=== PATIENT | female | born 1990 | race Caucasian/White ===

== ENCOUNTER → 2020-04-23 16:04 | Outpatient (CLI) | payer OTHER, SELFPAY ==
[2020-04-23 19:17] LABS: HCG,Quantitative 4864 mIU/ml (0-5.42)
== END ==
PROVIDERS: Visit Provider Obstetrics & Gynecology
DX: Z32.00 Encounter for pregnancy test, result unknown (principal)
CPT/HCPCS: 36415; 84702

== ENCOUNTER → 2020-05-10 12:34 | Outpatient (CLI) | payer OTHER, SELFPAY ==
--- NOTE | 2020-05-10 13:13 | US_ITS ---
PROCEDURE: US OB <= 14 WEEKS FETUS CLINICAL INDICATION: COMPARISON: No exams were available for comparison FINDINGS: An intrauterine gestational sac is present with a pole with a crown-rump length of 0.34cm correlating to gestational age of 6weeks 1day. heart tones are present with an FHR of . Yolk sac is noted. IMPRESSION: Estimated due date by Ultrasound is 01/02/2021 Dictated by: Octavio Frazier 05/10/2020 14:45 Electronically signed by Octavio Frazier in [facility] 05/10/2020 14:45
== END ==
PROVIDERS: PCP Nurse Practitioner Family; Visit Provider Obstetrics & Gynecology
DX: Z34.90 Encounter for supervision of normal pregnancy, unspecified, unspecified trimester (principal)
CPT/HCPCS: 76801

== ENCOUNTER → 2020-05-15 12:32 | Outpatient (CLI) | payer OTHER, SELFPAY ==
--- NOTE | 2020-05-15 12:40 | US_ITS ---
PROCEDURE: US OB TRANSVAGINAL CLINICAL INDICATION: repeat US for viability COMPARISON: US OB <= 14 WEEKS FETUS from 05/10/2020 FINDINGS: There is an intrauterine gestational sac with what is felt represent a pole measuring 3.3 mm correlating to gestational age of 6 weeks 0 days. No heart tones however are evident. A yolk sac is noted. There is an irregular area of decreased echogenicity along the inferior aspect of the yolk sac measuring 1 cm and could be due to small amount subchorionic bleeding. Unremarkable adnexa IMPRESSION: There is an intrauterine gestational sac with suspected pole but no heart tones evident. Cannot confirm viability. There is also questionable area of subchorionic bleeding Dictated by: Trent Short MD 05/15/2020 18:20 Electronically signed by Trent Short MD in [facility] 05/15/2020 18:20
[2020-05-15 14:57] LABS: HCG,Quantitative 38153 mIU/ml (0-5.42)
== END ==
PROVIDERS: PCP Obstetrics & Gynecology; Visit Provider Obstetrics & Gynecology
DX: Z34.90 Encounter for supervision of normal pregnancy, unspecified, unspecified trimester (principal)
CPT/HCPCS: 36415; 76817; 84702

== ENCOUNTER → 2020-05-15 13:43 | Outpatient (CLI) | payer OTHER, SELFPAY | PROVIDERS: Visit Provider Obstetrics & Gynecology | DX: Z34.90 Encounter for supervision of normal pregnancy, unspecified, unspecified trimester (principal) | CPT/HCPCS: 36415; 84702 ==

== ENCOUNTER 2020-05-17 09:01 | Day surgery (SDC) | payer OTHER, SELFPAY ==
[2020-05-16 09:36] VITALS: BMI 22.9
[2020-05-17] VITALS (11 sets, daily range): BP systolic 73–130; BP diastolic 48–60; PULSE 52–78; RESP 16–28; TEMP 36.5–36.9; O2SAT 99–100
[2020-05-17 10:46] LABS: Coronavirus 19 IgG Antibody Negative (Negative); Coronavirus 19 IgM Antibody Negative (Negative)
[2020-05-17 12:40] LABS: Basophils # 0.1 K/mm3 (0-0.2); Basophils % 0.6 % (0.1-2.0); Eosinophils # 0.1 K/mm3 (0.0-0.4); Eosinophils % 1.2 % (0.1-12.0); Hematocrit 33.8 % (37.0-47.0); Hemoglobin 11.4 g/dL (12.2-16.2); Lymphocytes # 2.5 K/mm3 (0.7-4.5); Lymphocytes % 31.2 % (10-50); Mean Corpuscular HGB Conc 33.8 g/dL (31.8-35.4); Mean Corpuscular Hemoglobin 30.1 pg (27.0-31.2); Mean Corpuscular Volume 89.1 fl (81-99); Mean Platelet Volume 9.1 fl (7.4-10.4); Monocytes # 0.5 K/mm3 (0.1-1.0); Monocytes % 6.4 % (1.7-9.3); Neutrophils # 4.8 K/mm3 (1.8-7.8); Neutrophils % 60.6 % (37.0-80.0); Platelet Count 195 K/mm3 (142-424); Red Blood Count 3.79 M/mm3 (4.20-5.40); Red Cell Distribution Width 14.5 % (11.5-17.5); White Blood Count 7.9 K/mm3 (4.8-10.8)
--- NOTE | 2020-05-17 12:55 | HMH.ANESI ---
[facility] Anesthesia Record Part I Intake, IV Amount: 1,200 Estimated blood loss (mL): 150 Urine output (mL): 1,200 Blood Pressure: 88/50 SaO2: 100 Pulse Rate: 78 Respiratory Rate: 16 Temperature: 97.8 F Patient is:: Drowsy, Stable Stable to PACU at:: 12:50
--- NOTE | 2020-05-17 13:22 | HMH.OPNOTE ---
Date of procedure: 05/17/20 Pre-op Diagnosis:: Missed , 6 /7 Post-op Diagnosis:: same Procedure performed:: Suction D&C Surgeon:: Chani Romero MD GLOBAL CREATIVE CHAIRMAN:: Quan Jarrett Anesthesia: GETA Estimated blood loss (mL): 150 Operative findings:: CRL measuring 6 1/7 with no change in measurement over 1 wk and no heart tones Operative note:: The patient was taken to the OR and general anesthesia administered without difficulty. She was prepped and draped in lithotomy position. Reis retractors were used to visualize the cervix and a single tooth tenaculum placed on the anterior lip of the cervix. The cervix was passively dilated until it could accomodate the suction curette. A size # 7 curved curette was used to evacuate the contents of the uterus. Once the products of conception had been evacuated, sharp curettage was used to ensure that no products remained within the uterine cavity. All instruments were then removed from the patients vagina, she was taken out of lithotomy position, awakened from anesthesia and taken to the PACU in stable condition. EBL: 150cc Condition: stable Disposition: PACU Specimens:: products of conception Complications:: none
--- NOTE | 2020-05-17 13:45 | HMH.ANESII ---
[facility] Anesthesia Record Part II Discharge Time: 13:16 Destination: Surgical Day Care (OP Surgery) PACU nurse assessment reviewed?: Yes Patient Condition:: Good Anesthesia Complications:: None Swallowing reflex intact?: Yes Cyanosis?: No Blood Pressure: 106/55 Pulse Rate: 60 Temperature: 98 F Mental Status: Alert & Oriented Pain level:: 0 Nausea and/or vomitting:: None Intake, IV Amount: 0
== END 2020-05-17 13:56 | disposition home or self-care (01) ==
PROVIDERS: PCP Obstetrics & Gynecology; Visit Provider Obstetrics & Gynecology
PROC: (CPT 59820; principal; 2020-05-17 12:00)
DX: O02.1 Missed abortion (principal); Z88.5 Allergy status to narcotic agent; Z88.8 Allergy status to other drugs, medicaments and biological substances; Z91.048 Other nonmedicinal substance allergy status; Z90.49 Acquired absence of other specified parts of digestive tract; Z82.49 Family history of ischemic heart disease and other diseases of the circulatory system; Z84.89 Family history of other specified conditions
CPT/HCPCS: 59820; 36415; 84702; 85025; 86328; 86900; 86901; J2405

== ENCOUNTER 2020-05-21 11:51 | Emergency (ER) | payer OTHER, SELFPAY ==
[2020-05-21 11:53] VITALS: BP 136/76; PULSE 100; RESP 18; TEMP 37.4; O2SAT 100; BMI 23.3
--- NOTE | 2020-05-21 12:14 | CT_ITS ---
PROCEDURE: CT ABDOMEN PELVIS W CON CLINICAL INDICATION: abd pain, post d/c Abdominal pain, recent D&C, recent surgery with lower pelvic pain COMPARISON: US OB TRANSVAGINAL from 05/15/2020 TECHNIQUE: IV Contrast: 75ML OPTIRAY 350 Oral Contrast None Axial images obtained with sagittal and coronal reformats. All CT scans at the facility use one or more dose reduction, viz: automated exposure control, ma/kV adjustment per patient size (including targeted exams where dose is matched to indication, i.e. head), or iterative reconstruction technique. FINDINGS: LOWER THORAX: There are bilateral breast implants. A noncalcified 9 mm nodule is present in the left lower lobe. ABDOMEN & PELVIS: Prior cholecystectomy. Mild biliary ectasia. The spleen, adrenal glands, pancreas, and kidneys show no acute finding. No renal or ureteral calculi. There is a 4 mm cortical cyst involving the medial aspect of the left kidney. No evidence of appendicitis. There is a mild amount of retained colonic feces. No intestinal obstruction or free air. Bowel gas pattern is nonspecific with nondistended fluid-filled loops of small bowel. Suture line is present in the sigmoid colon region. There is a small amount of fluid in the pelvis. No acute bony findings. Minimal lumbar curvature convex left. The uterus body and fundus shows decreased attenuation and mild enlargement. No endometrial gas or endometrial enhancement. IMPRESSION: 1. Mild prominence of the uterus with low-density changes of the body and fundus of the myometrium. This is nonspecific and could be related underlying edema/. This is not a typical appearance for endometritis. The ultrasound may provide further evaluation. 2. Small amount fluid in the pelvis. 3. Mild amount of retained colonic feces 4. 9 mm nodule in the left lower lobe. Recommend six-month follow-up Dictated by: Trent Short MD 05/21/2020 13:07 Electronically signed by Trent Short MD in [facility] 05/21/2020 13:07
--- NOTE | 2020-05-21 12:21 | PC.NURSE ---
Addendum entered by Alla Juan RN 05/21/20 12:21: wrong pt Original Note: Gave family an update
[2020-05-21 12:26] LABS: Basophils % 0.3 % (0.1-2.0); Eosinophils # 0.1 K/mm3 (0.0-0.4); Eosinophils % 0.7 % (0.1-12.0); Hematocrit 44.1 % (37.0-47.0); Hemoglobin 15.2 g/dL (12.2-16.2); Lymphocytes # 1.7 K/mm3 (0.7-4.5); Lymphocytes % 12.8 % (10-50); Mean Corpuscular HGB Conc 34.4 g/dL (31.8-35.4); Mean Corpuscular Hemoglobin 30.5 pg (27.0-31.2); Mean Corpuscular Volume 88.7 fl (81-99); Mean Platelet Volume 9.2 fl (7.4-10.4); Monocytes # 0.6 K/mm3 (0.1-1.0); Monocytes % 4.7 % (1.7-9.3); Neutrophils # 10.6 K/mm3 (1.8-7.8); Neutrophils % 81.5 % (37.0-80.0); Platelet Count 235 K/mm3 (142-424); Red Blood Count 4.98 M/mm3 (4.20-5.40); Red Cell Distribution Width 14.6 % (11.5-17.5)
[2020-05-21 12:28] LABS: Alanine Aminotransferase 221 U/L (12-78); Albumin Level 5.5 g/dl (3.5-5.0); Albumin/Globulin Ratio 1.3 (1.1-1.8); Alkaline Phosphatase 142 U/L (38-126); Amylase 104 U/L (30-110); Aspartate Amino Transferase 165 U/L (14-36); Bilirubin,Total 0.6 mg/dl (0.2-1.3); Blood Urea Nitrogen 5 mg/dl (7-17); Calcium 10.5 mg/dl (8.4-10.2); Carbon Dioxide 28 mmol/L (22.0-30.0); Chloride 96 mmol/L (98-107); Creatinine Clearance Estimated 118 mL/min (50-200); Estimated Glomerular Filt Rate 98 ml/min (>60); GFR (African American) 119 ML/MIN (>60); Globulin 4.1 g/dL (1.3-3.2); Glucose 92 mg/dl (74-100); Lipase 36 U/L (23-300); Sodium 136 mmol/L (136-145); Total Protein,Serum 9.6 g/dl (6.3-8.2)
[2020-05-21 12:28] LABS: Microscopic, Urine URINE MICROSCOPIC (MICROSCOPIC)
[2020-05-21 12:29] LABS: Appearance,Urine CLEAR (Clear); Bilirubin,Urine Negative (Negative); Blood, Urine 3+ (Negative); Color,Urine YELLOW (Yellow); Glucose,Urine (UA) Negative (Negative); Ketones,Urine 1+ (Negative); Leukocyte Esterase,Urine TRACE (Negative); Nitrate,Urine Negative (Negative); Protein,Urine Negative (Negative); Specific Gravity, Urine 1.015 (1.005-1.030); Urobilinogen,Urine 0.2 EU/dl (0.2)
[2020-05-21 12:31] VITALS: BP 117/54; PULSE 94; RESP 18; O2SAT 97
[2020-05-21 12:31] LABS: Urine Pregnancy, HCG Qual. Positive (Negative)
--- NOTE | 2020-05-21 12:32 | PC.NURSE ---
pt to CT
[2020-05-21 12:41] LABS: Amphetamine/Metha Screen,Urine Negative ng/ml (<1000)
[2020-05-21 12:42] LABS: Barbiturates Screen,Urine Negative ng/ml (<200)
[2020-05-21 12:43] LABS: Benzodiazepines Screen,Urine Negative ng/ml (<200); Cannabinoid Screen,Urine Negative ng/ml (<50)
[2020-05-21 12:44] LABS: Cocaine Screen,Urine Negative ng/ml (<300)
[2020-05-21 12:45] LABS: Methadone Screen,Urine Negative ng/ml (<300); Opiate Screen,Urine Negative ng/ml (<300)
[2020-05-21 12:46] LABS: Phencyclidine Screen,Urine Negative ng/ml (<25)
[2020-05-21 12:49] LABS: Bacteria,Urine Trace /lpf
[2020-05-21 13:35] VITALS: BP 101/68; PULSE 74; RESP 20; O2SAT 97
--- NOTE | 2020-05-21 13:58 | PC.NURSE ---
notified ER pt ct result is in the system
[2020-05-21 14:31] VITALS: BP 113/66; PULSE 78; RESP 18; O2SAT 98
--- NOTE | 2020-05-21 14:53 | HMH.EDABDPAI ---
ED Disposition Clinical Impression: Abdominal pain Disposition: Home, Self-Care Condition on Discharge: Good Instructions: DI for Acute Abdomen Prescriptions: Docusate Sodium 250 mg PO BID 30 Days #60 cap Prescription Printed Hydrocodone/Acetaminophen [[place] 10-325 Tablet] 1 tab PO Q4H PRN 3 Days #15 tab PRN Reason: Breakthru Moderate Pain Tizanidine HCl [Zanaflex 4mg tablet] 4 mg PO TID 10 Days #30 tablet Referrals: Johnie Romero [Primary Care Provider] - - Critical Care Critical Care Time: No Attestation: On 05/21/20, the high probability of a clinically significant, sudden or life threatening deterioration of the following system(s) required my full and direct attention, intervention and personal management. The time I documented below is in addition to time spent performing reported procedures but includes the following listed in this critical care notation. Medical Decision Making - Medical Records Medical records reviewed: Yes: I reviewed the patient's medical records. - Eitan Inquiry Pt receiving controlled substance: No Vital Signs: 05/21/20 11:53 05/21/20 12:31 05/21/20 13:35 Temperature 99.3 F Temperature Source Oral Pulse Rate [Right] 100 H 94 H 74 Respiratory Rate 18 18 20 Blood Pressure [Right Arm] 136/76 117/54 L 101/68 L Blood Pressure Mean [Right Arm] 96 75 79 Blood Pressure Source [Right Arm] Automatic Cuff Blood Pressure Position [Right Arm] Sitting Sitting 02 Sat by Pulse Oximetry 100 97 97 Oxygen Delivery Method 05/21/20 14:31 Temperature Temperature Source Pulse Rate [Right] 78 Respiratory Rate 18 Blood Pressure [Right Arm] 113/66 Blood Pressure Mean [Right Arm] 81 Blood Pressure Source [Right Arm] Automatic Cuff Blood Pressure Position [Right Arm] Sitting 02 Sat by Pulse Oximetry 98 Oxygen Delivery Method Room Air - Lab Data Lab results reviewed: Yes: I reviewed the patient's lab results. Lab Results 05/21/20 12:10: WBC 13.0 H, RBC 4.98, Hgb 15.2, Hct 44.1, MCV 88.7, MCH 30.5, MCHC 34.4, RDW 14.6, Plt Count 235, MPV 9.2, Neut % (Auto) 81.5 H, Lymph % (Auto) 12.8, [place] % (Auto) 4.7, Eos % (Auto) 0.7, Baso % (Auto) 0.3, Neut # (Auto) 10.6 H, Lymph # (Auto) 1.7, [place] # (Auto) 0.6, Eos # (Auto) 0.1, Baso # (Auto) 0.0 05/21/20 12:10: Sodium 136, Potassium 4.0, Chloride 96 L, Carbon Dioxide 28, Anion Gap 16.0 H, BUN 5 L, Creatinine 0.70, Estimated Creat Clear 118, Estimated GFR 98, Est GFR ( Amer) 119, Glucose 92, Calcium 10.5 H, Total Bilirubin 0.6, AST 165 H, ALT 221 H, Alkaline Phosphatase 142 H, Total Protein 9.6 H, Albumin 5.5 H, Globulin 4.1 H, Albumin/Globulin Ratio 1.3, Amylase 104, Lipase 36 05/21/20 12:10: Urine Opiates Screen Negative, Urine Methadone Screen Negative, Ur Barbituates Screen Negative, Ur Phencyclidine Scrn Negative, Ur Amphetamines Screen Negative, U Benzodiazepines Scrn Negative, Urine Cocaine Screen Negative, U Marijuana (THC) Screen Negative 05/21/20 12:10: Urine HCG, Qual Positive 05/21/20 12:10: Lactate 1.0 05/21/20 12:23: Urine Color Yellow, Urine Appearance Clear, Urine pH 7.0, Ur Specific [place] 1.015, Urine Protein Negative, Urine Glucose (UA) Negative, Urine Ketones 1+, Urine Blood 3+, Urine Nitrate Negative, Urine Bilirubin Negative, Urine Urobilinogen 0.2, Ur Leukocyte Esterase Trace, Urine RBC 10-20, Urine WBC 3-5, Ur Squamous Epith Cells 5-10, Urine Bacteria Trace Result diagrams: 05/21/20 12:10 05/21/20 12:10 Orders (Tests/Meds): ED MEDICATIONS Discontinued Medications Generic Name Dose Route Start Last Admin Trade Name Freq PRN Reason Stop Dose Admin Hydromorphone HCl 1 mg 05/21/20 12:25 05/21/20 12:27 Dilaudid 2mg/Ml Syringe IV 05/21/20 12:26 1 mg ONCE ONE Administration Hydromorphone HCl 1 mg 05/21/20 13:49 05/21/20 13:57 Dilaudid 2mg/Ml Syringe IV 05/21/20 13:50 1 mg ONCE ONE Administration Hydromorphone HCl 1 mg 05/21/20 14:53 05/21/20 14:56 Dilaudid 2mg/Ml Syringe IV
[2020-05-21 15:30] VITALS: BP 113/66; PULSE 78; RESP 18; TEMP 37.4; O2SAT 98
== END 2020-05-21 15:35 | disposition home or self-care (01) ==
PROVIDERS: Emergency Provider Family Medicine; PCP Ophthalmology
DX: R10.32 Left lower quadrant pain (principal); Z88.5 Allergy status to narcotic agent
CPT/HCPCS: 74177; 80053; 80305; 81001; 81025; 82150; 83605; 83690; 85025; 87040; 96365; 96375; 96376; 99284; Q9967

== ENCOUNTER → 2020-06-11 11:59 | Outpatient (CLI) | payer OTHER, SELFPAY ==
[2020-06-11 14:16] LABS: HCG,Quantitative 28 mIU/ml (0-5.42)
== END ==
PROVIDERS: Visit Provider Obstetrics & Gynecology
DX: O02.1 Missed abortion (principal)
CPT/HCPCS: 36415; 84702

== ENCOUNTER → 2020-06-16 10:35 | Outpatient (CLI) | payer OTHER, SELFPAY | PROVIDERS: Visit Provider Obstetrics & Gynecology | DX: Z01.818 Encounter for other preprocedural examination (principal) ==

== ENCOUNTER → 2020-06-18 10:47 | Outpatient (CLI) | payer OTHER, SELFPAY ==
[2020-06-18 11:04] LABS: Basophils # 0.1 K/mm3 (0-0.2); Basophils % 0.9 % (0.1-2.0); Eosinophils # 0.2 K/mm3 (0.0-0.4); Eosinophils % 3.9 % (0.1-12.0); Hematocrit 41.2 % (37.0-47.0); Hemoglobin 14.1 g/dL (12.2-16.2); Lymphocytes # 2.3 K/mm3 (0.7-4.5); Lymphocytes % 38.7 % (10-50); Mean Corpuscular HGB Conc 34.4 g/dL (31.8-35.4); Mean Corpuscular Hemoglobin 30.7 pg (27.0-31.2); Mean Corpuscular Volume 89.4 fl (81-99); Mean Platelet Volume 9.3 fl (7.4-10.4); Monocytes # 0.4 K/mm3 (0.1-1.0); Neutrophils % 50.5 % (37.0-80.0); Platelet Count 204 K/mm3 (142-424); Red Cell Distribution Width 14.8 % (11.5-17.5); White Blood Count 5.9 K/mm3 (4.8-10.8)
[2020-06-18 11:38] LABS: Chloride 103 mmol/L (98-107); Potassium 4.7 mmoL/L (3.5-5.1); Sodium 141 mmol/L (136-145)
[2020-06-18 11:40] LABS: Alanine Aminotransferase 21 U/L (12-78); Aspartate Amino Transferase 32 U/L (14-36); Blood Urea Nitrogen 7 mg/dl (7-17); Estimated Glomerular Filt Rate 98 ml/min (>60); GFR (African American) 119 ML/MIN (>60)
[2020-06-18 11:41] LABS: Albumin Level 4.4 g/dl (3.5-5.0); Albumin/Globulin Ratio 1.6 (1.1-1.8); Alkaline Phosphatase 59 U/L (38-126); Anion Gap 13.7 mEq/L (5-15); Bilirubin,Total 0.4 mg/dl (0.2-1.3); Calcium 9.9 mg/dl (8.4-10.2); Carbon Dioxide 29 mmol/L (22.0-30.0); Globulin 2.8 g/dL (1.3-3.2); Glucose 79 mg/dl (74-100); Total Protein,Serum 7.2 g/dl (6.3-8.2)
[2020-06-18 11:59] LABS: HCG,Quantitative 7 mIU/ml (0-5.42)
[2020-06-18 13:45] LABS: Coronavirus 19 IgG Antibody Negative (Negative); Coronavirus 19 IgM Antibody Negative (Negative)
== END ==
PROVIDERS: Visit Provider Obstetrics & Gynecology
DX: O02.1 Missed abortion (principal)
CPT/HCPCS: 36415; 80053; 84702; 85025; 86328

== ENCOUNTER 2020-06-19 07:04 | Day surgery (SDC) | payer OTHER, SELFPAY ==
[2020-06-19] VITALS (11 sets, daily range): BP systolic 99–137; BP diastolic 60–86; PULSE 67–94; RESP 12–18; TEMP 36.1–43; O2SAT 98–100; BMI 22.2
--- NOTE | 2020-06-19 08:45 | P.PN_ITS ---
[facility] Anesthesia Checklist - Patient Identification Patient Identification: Arm Band - Structural Data Admitted From: Home Planned Operative Procedure/s: hysteroscopy, d&c, diagnostic laparoscopy Consent for Planned Operative Procedure(s) Verified: Yes Verified Documents: Surgical Consent, History and Physical - NPO Status Verified Time NPO: 00:00 - Additional verifications Anesthesia Reactions: No Hx Blood Transfusions: No Blood Transfusion Reaction: No - Airway Assessment C-Spine Mobility Assessed: Yes (mp2) TMJ Mobility Assessed: Yes Dentition: Good Dentition - Neurological Assessment Level of Consciousness: Awake, Alert - Anesthesia Plan Anesthesia Risk discussed: Yes Anesthesia Plan: Verified ASA Class: I Anesthesia Type: General [facility] History I have reviewed the patient's past medical history: Yes Medical History: Reports:: MRSA (spine) Denies:: Cancer, Diabetes Mellitus Type 1, Diabetes Mellitus Type 2, Internal Pacemaker, Seizures *Have you ever received a pneumonia vaccine?: No *Have you received a flu vaccine this season?: No Other Medical History: Reports: Other. Denies: Blood Transfusion Reaction Anesthesia experience/problems:: nac Other Surgeries: Yes: Cholecystectomy, Dilation and Curettage, Diagnostic Lap, EGD, Other. 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
--- NOTE | 2020-06-19 11:43 | HMH.ANESI ---
[facility] Anesthesia Record Part I Intake, IV Amount: 1,400 Estimated blood loss (mL): 25 Urine output (mL): 300 Blood Pressure: 137/86 SaO2: 100 Pulse Rate: 94 Respiratory Rate: 12 Temperature: 97.2 F Patient is:: Awake, Stable Stable to PACU at:: 11:40
--- NOTE | 2020-06-19 12:10 | PC.NURSE ---
1207-detailed report called to Celeste,RN, pt eating ice chips w/out difficulty,vss 1210-pt transported to post op via stretcher w/khanh rails up, vss, pt stable
--- NOTE | 2020-06-19 13:12 | HMH.OPNOTE ---
Date of procedure: 06/19/20 Pre-op Diagnosis:: 1. Pelvic pain 2. Dyspareunia 3. Infertility 4. Dysfunctional uterine bleeding Post-op Diagnosis:: 1. Pelvic pain 2. Dyspareunia 3. Infertility 4. Dysfunctional uterine bleeding 5. Occluded left fallopian tube Procedure performed:: 1. Diagnostic Hysteroscopy 2. Diagnostic laparoscopy with chromotubation 3. Left salpingectomy Surgeon:: Chani Romero MD PHYSICIAN GYNECOLOGIST:: Garth Sánchez Anesthesia: GETA Estimated blood loss (mL): 25 Operative findings:: normal uterine cavity normal ovaries bilaterally normal appearing and patent right fallopian tube dilated, tortuous and adhesed left fallopian tube, completely occuded Operative note:: HYSTEROSCOPY: The patient was taken to the operating room and general anesthesia was administered. She was prepped/draped in lithotomy position. The anterior lip of the cervix was grasped with a single tooth tenaculum and the cervix was dilated with Brizuela dilators of serially increasing size until the external os was able to accomodate the Myosure hysteroscope. The hysteroscope was advanced through the cervix and into the uterine cavity, which was distended with LR. Once the uterus was sufficiently distended, the cavity was evaluated. Both tubal ostia were visualized and no deptum, fibroids or polyps were observed. The hysteroscope was removed and a uterine manipulator placed without difficulty. LAPAROSCOPY: Gloves were changed and attention was turned to the abdomen. A 5mm skin incision was made in the umbilical fold and the verees needle was inserted through the peritoneum and into the abdominal cavity in standard fashion. The abdomen was insufflated with CO2 gas. A 5mm non-bladed trocar was inserted directly into the abdominal cavity and appropriate placement was confirmed with the laparoscope. No intra-abdominal injuries occurred during entry into the abdominal cavity, as confirmed visually with the laparoscope. The patient was placed in trendelenburg and a 5mm skin incision was made 2cm above the pubic symphysis. A 5mm non-bladed trocar was inserted under direct visualization, without complication. The uterus was elevated out of the pelvis in order to better visualize the anatomy. A survey of the pelvis and abdomen revealed the findings noted above. A 11mm skin incision was made in the left lower quadrant and a non-bladed trocar was inserted under direct visualization, without complication. The fimbriated end of the left fallopian tube could not be identified because the tube was twisted on itself and adhesed in so many places. A dilute solution of indigo carmine was injected into the uterus through the Humi. The dye flowed freely through the right fallopian tube and was expelled through the fimbriated end, but no dye was ejected through the left fallopian tube. The extent of the left fallopian tube's hydrosalpinx and adhesions was even more apparent after the tube had been filled with the dye solution. The decision was made to proceed with removal of the fallopian tube because of the implicit risk of future ectopic and the case was paused so that the surgeon could obtain consent from the patient's for the salpingectomy. Once the case had resumed, the left fallopian tube was dissected off the left pelvic sidewall and bowel using both sharp and blunt dissection. The tube was excised using the harmonic scalpel, and was removed through the LLQ port. Hemostasis was assurred and all instruments removed. The abdomen was then evacuated of gas and all trocars removed. The fascia of the LLQ incision was closed with 0-vicryl. All skin incisions were closed with dermabond. All sponge/lap/needle/instrument counts correct for both abdominal and vaginal procedures. Total EBL: 25 cc. The patient was taken out of lithotomy position, extubated and taken to the PACU in stable condition. Condition: stable Disposition: PACU Specimens::
--- NOTE | 2020-06-19 14:06 | HMH.ANESII ---
[facility] Anesthesia Record Part II Discharge Time: 12:10 Destination: Surgical Day Care (OP Surgery) PACU nurse assessment reviewed?: Yes Patient Condition:: Good Anesthesia Complications:: None Swallowing reflex intact?: Yes Cyanosis?: No Blood Pressure: 116/67 Pulse Rate: 73 Temperature: 97.0 F Mental Status: Alert & Oriented Pain level:: 0 Nausea and/or vomitting:: None Intake, IV Amount: 0
== END 2020-06-19 12:45 | disposition home or self-care (01) ==
LOC: OR 07:06
PROVIDERS: Visit Provider Obstetrics & Gynecology
PROC: 0UDB8ZZ Extraction of Endometrium, Via Natural or Artificial Opening Endoscopic (ICD-10-PCS; CPT 58558; principal; 2020-06-19 09:15)
DX: N97.1 Female infertility of tubal origin (principal); K66.0 Peritoneal adhesions (postprocedural) (postinfection); Z86.14 Personal history of Methicillin resistant Staphylococcus aureus infection; Z90.49 Acquired absence of other specified parts of digestive tract; Z87.891 Personal history of nicotine dependence; Z87.19 Personal history of other diseases of the digestive system; Z98.82 Breast implant status; Z82.49 Family history of ischemic heart disease and other diseases of the circulatory system; Z88.6 Allergy status to analgesic agent; Z88.8 Allergy status to other drugs, medicaments and biological substances; Z91.048 Other nonmedicinal substance allergy status; Z79.899 Other long term (current) drug therapy; N93.8 Other specified abnormal uterine and vaginal bleeding; N80.9 Endometriosis, unspecified
CPT/HCPCS: 58350; 58661; 96374; J2405

== ENCOUNTER → 2020-08-06 13:17 | Outpatient (CLI) | payer OTHER, SELFPAY ==
[2020-08-07 10:02] LABS: Progesterone 10.4 ng/mL (.)
== END ==
PROVIDERS: Visit Provider Obstetrics & Gynecology
DX: N70.11 Chronic salpingitis (principal); N93.8 Other specified abnormal uterine and vaginal bleeding
CPT/HCPCS: 36415; 84144

== ENCOUNTER → 2020-09-10 11:01 | Outpatient (CLI) | payer OTHER, SELFPAY ==
[2020-09-10 13:14] LABS: HCG,Quantitative 786 mIU/ml (0-5.42)
== END ==
PROVIDERS: Visit Provider Obstetrics & Gynecology
DX: Z32.00 Encounter for pregnancy test, result unknown (principal)
CPT/HCPCS: 36415; 84702

== ENCOUNTER → 2020-09-12 10:46 | Outpatient (CLI) | payer OTHER, SELFPAY ==
[2020-09-12 12:30] LABS: HCG,Quantitative 1889 mIU/ml (0-5.42)
== END ==
PROVIDERS: Visit Provider Obstetrics & Gynecology
DX: Z34.90 Encounter for supervision of normal pregnancy, unspecified, unspecified trimester (principal)
CPT/HCPCS: 36415; 84702

== ENCOUNTER → 2020-09-25 11:50 | Outpatient (CLI) | payer OTHER, SELFPAY | PROVIDERS: Visit Provider Obstetrics & Gynecology | DX: Z32.00 Encounter for pregnancy test, result unknown (principal) | CPT/HCPCS: 36415; 84702 ==

== ENCOUNTER → 2020-10-01 07:42 | Outpatient (CLI) | payer OTHER, SELFPAY ==
--- NOTE | 2020-10-01 08:18 | US_ITS ---
PROCEDURE: US OB <= 14 WEEKS FETUS CLINICAL INDICATION: Dates The COMPARISON: US US OB TRANSVAGINAL from 05/15/2020 FINDINGS: An intrauterine gestational sac is present with a pole with a crown-rump length of 1cm correlating to gestational age of 7weeks 1day. heart tones are present with an FHR of 154bpm. Yolk sac is noted. Unremarkable adnexa IMPRESSION: Live IUP at 7 weeks 1 day Estimated due date by Ultrasound is 05/19/2021 Dictated by: Trent Short MD 10/01/2020 17:39 Trent Short MD in [facility] 10/01/2020 17:39
[2020-10-01 10:24] LABS: Basophils % 0.4 % (0.1-2.0); Eosinophils # 0.1 K/mm3 (0.0-0.4); Eosinophils % 0.7 % (0.1-12.0); Hematocrit 40.8 % (37.0-47.0); Hemoglobin 14.2 g/dL (12.2-16.2); Lymphocytes # 2.3 K/mm3 (0.7-4.5); Lymphocytes % 22.9 % (10-50); Mean Corpuscular HGB Conc 34.7 g/dL (31.8-35.4); Mean Corpuscular Hemoglobin 31.6 pg (27.0-31.2); Mean Corpuscular Volume 91.2 fl (81-99); Monocytes # 0.6 K/mm3 (0.1-1.0); Monocytes % 5.8 % (1.7-9.3); Neutrophils # 7.1 K/mm3 (1.8-7.8); Neutrophils % 70.3 % (37.0-80.0); Platelet Count 215 K/mm3 (142-424); Red Blood Count 4.47 M/mm3 (4.20-5.40); Red Cell Distribution Width 13.6 % (11.5-17.5)
[2020-10-02 15:20] LABS: HIV Screen 4th Generation wRfx Non Reactive (Non Reactive); Hepatitis B Surface Antigen Negative (Negative); Hepatitis C Antibody <0.1 s/co ratio (0.0-0.9); Rapid Plasma Reagin Ab Titer Non Reactive (NonRea<1:1); Rubella Antibodies, IgG 1.89 index (Immune >0.99)
== END ==
PROVIDERS: PCP Obstetrics & Gynecology; Visit Provider Obstetrics & Gynecology
DX: Z34.90 Encounter for supervision of normal pregnancy, unspecified, unspecified trimester (principal)
CPT/HCPCS: 36415; 76801; 85025; 86592; 86703; 86762; 86850; 87340; 87380; G0432

== ENCOUNTER → 2020-10-01 09:44 | Outpatient (CLI) | payer OTHER, SELFPAY | PROVIDERS: Visit Provider Obstetrics & Gynecology | DX: Z34.90 Encounter for supervision of normal pregnancy, unspecified, unspecified trimester (principal) | CPT/HCPCS: 36415; 85025; 86592; 86703; 86762; 86850; 87340; 87380; G0432 ==

== ENCOUNTER → 2020-10-29 10:54 | Outpatient (CLI) | payer OTHER, SELFPAY ==
[2020-10-29 11:18] LABS: Basophils # 0.1 K/mm3 (0-0.2); Basophils % 0.7 % (0.1-2.0); Eosinophils # 0.2 K/mm3 (0.0-0.4); Eosinophils % 1.7 % (0.1-12.0); Hematocrit 42.5 % (37.0-47.0); Hemoglobin 14.8 g/dL (12.2-16.2); Lymphocytes # 2.5 K/mm3 (0.7-4.5); Lymphocytes % 27.5 % (10-50); Mean Corpuscular HGB Conc 34.9 g/dL (31.8-35.4); Mean Corpuscular Hemoglobin 32.5 pg (27.0-31.2); Mean Platelet Volume 8.7 fl (7.4-10.4); Monocytes # 0.5 K/mm3 (0.1-1.0); Monocytes % 5.1 % (1.7-9.3); Neutrophils # 5.9 K/mm3 (1.8-7.8); Platelet Count 216 K/mm3 (142-424); Red Blood Count 4.57 M/mm3 (4.20-5.40); Red Cell Distribution Width 13.3 % (11.5-17.5); White Blood Count 9.1 K/mm3 (4.8-10.8)
[2020-10-29 12:09] LABS: Chloride 101 mmol/L (98-107); Potassium 4.1 mmoL/L (3.5-5.1); Sodium 136 mmol/L (136-145)
[2020-10-29 12:12] LABS: Alanine Aminotransferase 42 U/L (12-78); Albumin Level 4.8 g/dl (3.5-5.0); Albumin/Globulin Ratio 1.4 (1.1-1.8); Alkaline Phosphatase 67 U/L (38-126); Anion Gap 15.1 mEq/L (5-15); Aspartate Amino Transferase 74 U/L (14-36); Bilirubin,Total 0.6 mg/dl (0.2-1.3); Blood Urea Nitrogen 4 mg/dl (7-17); Carbon Dioxide 24 mmol/L (22.0-30.0); Estimated Glomerular Filt Rate 117 ml/min (>60); GFR (African American) 142 ML/MIN (>60); Globulin 3.5 g/dL (1.3-3.2); Total Protein,Serum 8.3 g/dl (6.3-8.2)
[2020-10-29 12:13] LABS: Calcium 10.2 mg/dl (8.4-10.2); Glucose 74 mg/dl (74-100)
[2020-10-29 12:41] LABS: Coronavirus 19 IgG Antibody Negative (Negative); Coronavirus 19 IgM Antibody Negative (Negative)
[2020-11-07 19:32] LABS: APTT 27.2 sec (.); Anti-Cardiolipin Antibody IgG <10 GPL (.); Anti-Cardiolipin Antibody IgM 14 MPL (.); Beta-2 Glycoprotein I Ab, IgA <10 SAU (.); Beta-2 Glycoprotein I Ab, IgG <10 SGU (.); Beta-2 Glycoprotein I Ab, IgM <10 SMU (.); Hexagonal Phase Phospholipid 3 sec (.); Prothrombin Time 10.4 sec (.); Thrombin Time 17.4 sec (.)
== END ==
PROVIDERS: Visit Provider Obstetrics & Gynecology
DX: Z34.90 Encounter for supervision of normal pregnancy, unspecified, unspecified trimester (principal); Z3A.11 11 weeks gestation of pregnancy
CPT/HCPCS: 36415; 80053; 81241; 85025; 85597; 85598; 85610; 85613; 85670; 85730; 86146; 86147; 86328

== ENCOUNTER 2020-10-31 10:50 | Day surgery (SDC) | payer OTHER, SELFPAY ==
[2020-10-29 15:10] VITALS: BMI 23.2
[2020-10-31] VITALS (10 sets, daily range): BP systolic 96–120; BP diastolic 53–71; PULSE 64–88; RESP 14–20; TEMP 36.4–36.9; O2SAT 98–100
--- NOTE | 2020-10-31 12:16 | P.PN_ITS ---
[facility] Anesthesia Checklist - Patient Identification Patient Identification: Arm Band, Verbal (Name & ) - Structural Data Admitted From: Home Planned Operative Procedure/s: D&C, [place] suction Consent for Planned Operative Procedure(s) Verified: Yes Verified Documents: Surgical Consent, History and Physical - NPO Status Verified Time NPO: 20:00 - Chart Verification Results Verified: CBC, BMP - Additional verifications Patient : Yes (missed ) Anesthesia Reactions: No Hx Blood Transfusions: No Blood Transfusion Reaction: No - Airway Assessment C-Spine Mobility Assessed: Yes TMJ Mobility Assessed: Yes Dentition: Good Dentition - Neurological Assessment Level of Consciousness: Awake, Alert, Appropriate, Follows Commands Hx Seizures: No Numbness or tingling in extremities: No - Anesthesia Plan Anesthesia Risk discussed: Yes Anesthesia Plan: Verified ASA Class: II Anesthesia Type: General [facility] History I have reviewed the patient's past medical history: Yes Medical History: Reports:: MRSA Denies:: Cancer, Diabetes Mellitus Type 1, Diabetes Mellitus Type 2, Internal Pacemaker, Seizures *Have you ever received a pneumonia vaccine?: No *Have you received a flu vaccine this season?: No Other Medical History: Reports: Other. Denies: Blood Transfusion Reaction Comment:: endometriois Anesthesia experience/problems:: PONV Other Surgeries: Yes: Cholecystectomy, Dilation and Curettage, Diagnostic Lap, EGD, Other. 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
--- NOTE | 2020-10-31 15:08 | HMH.ANESI ---
[facility] Anesthesia Record Part I Intake, IV Amount: 350 Estimated blood loss (mL): 600 Urine output (mL): 300 Blood Products used (#): none Blood Pressure: 105/68 SaO2: 100 Pulse Rate: 88 Respiratory Rate: 20 Temperature: 97.6 F Patient is:: Drowsy, Stable Stable to PACU at:: 15:08
--- NOTE | 2020-10-31 15:21 | PC.NURSE ---
1514-pt drinking water at this time w/out difficulty, denies nausea
--- NOTE | 2020-10-31 15:24 | P.OP_ITS ---
Date of procedure: 10/31/20 Pre-op Diagnosis:: missed , 9 2/7 weeks Post-op Diagnosis:: same Procedure performed:: Suction Dilation and Curettage Surgeon:: Chani Romero MD SENIOR TECHNICAL TRAINER:: Maximus Paez Anesthesia: GETA Estimated blood loss (mL): 600 Operative findings:: 9 week sized uterus Operative note:: The patient was taken to the OR and general anesthesia administered without difficulty. She was prepped and draped in lithotomy position. Reis retractors were used to visualize the cervix and a single tooth tenaculum placed on the anterior lip of the cervix. The cervix was passively dilated until it could accomodate the suction curette. A size # 9 curved curette was used to evacuate the contents of the uterus. Once the products of conception had been evacuated, sharp curettage was used to ensure that no products remained within the uterine cavity. All instruments were then removed from the patients vagina, she was taken out of lithotomy position, awakened from anesthesia and taken to the PACU in stable condition. EBL: 600 Condition: stable Disposition: PACU Specimens:: Products of conception Complications:: None
--- NOTE | 2020-10-31 15:40 | PC.NURSE ---
1537-detailed report called to TOÑO Arshad 1539-pt transported to post op via stretcher w/khanh rails up and left in care of TOÑO Arshad with bed locked in lowest position, vss, pt stable
[2020-11-01 09:02] VITALS: BP 104/67; PULSE 70; TEMP 36.4
--- NOTE | 2020-11-01 09:02 | P.PN_ITS ---
[facility] Anesthesia Record Part II Discharge Time: 15:38 Destination: Surgical Day Care (OP Surgery) PACU nurse assessment reviewed?: Yes Patient Condition:: Good Anesthesia Complications:: None Swallowing reflex intact?: Yes Cyanosis?: No Blood Pressure: 104/67 Pulse Rate: 70 Temperature: 97.6 F Mental Status: Alert & Oriented Pain level:: 2 Nausea and/or vomitting:: None Intake, IV Amount: 35
== END 2020-10-31 16:14 | disposition home or self-care (01) ==
LOC: OR 10:50
PROVIDERS: Visit Provider Obstetrics & Gynecology
PROC: (CPT 59812; principal; 2020-10-31 12:30)
DX: O02.1 Missed abortion (principal); Z86.14 Personal history of Methicillin resistant Staphylococcus aureus infection
CPT/HCPCS: 59812; 96374; J2405

== ENCOUNTER → 2020-12-17 14:31 | Outpatient (CLI) | payer OTHER, SELFPAY ==
[2020-12-17 14:38] LABS: Adenovirus F 40/41, stool Not Detected (NotDetected); Astrovirus Not Detected (NotDetected); Campylobacter Not Detected (NotDetected); Cryptosporidium Not Detected (NotDetected); Cyclospora Cayetanesis Not Detected (NotDetected); Entamoeba histolytica Not Detected (NotDetected); Enteroaggregative E coli Not Detected (NotDetected); Enteropathogenic E coli Not Detected (NotDetected); Enterotoxigenic E coli Not Detected (NotDetected); Giardia lamblia Not Detected (NotDetected); Norovirus Not Detected (NotDetected); Plesimonas Shigalloides, PCR Not Detected (NotDetected); Rotavirus A Not Detected (NotDetected); Salmonella, PCR Not Detected (NotDetected); Sapovirus Not Detected (NotDetected); Shiga-like toxin E coli Not Detected (NotDetected); Shigella Enterovasive E coli Not Detected (NotDetected); Vibrio Cholerae Not Detected (NotDetected); Vibrio, PCR Not Detected (NotDetected); Yersinia Entercolitica, PCR Not Detected (NotDetected)
[2020-12-25 08:43] LABS: Clostridium Difficile A/B, PCR Detected (NotDetected)
== END ==
PROVIDERS: Visit Provider Internal Medicine
DX: A04.72 Enterocolitis due to Clostridium difficile, not specified as recurrent (principal)
CPT/HCPCS: 87507

== ENCOUNTER → 2021-04-18 12:42 | Outpatient (CLI) | payer MEDICAID, SELFPAY | PROVIDERS: Visit Provider Obstetrics & Gynecology | DX: Z34.90 Encounter for supervision of normal pregnancy, unspecified, unspecified trimester (principal) | CPT/HCPCS: 84702 ==

== ENCOUNTER → 2021-04-20 10:53 | Outpatient (CLI) | payer MEDICAID, SELFPAY | PROVIDERS: Visit Provider Obstetrics & Gynecology | DX: Z34.90 Encounter for supervision of normal pregnancy, unspecified, unspecified trimester (principal) | CPT/HCPCS: 36415; 84702 ==

== ENCOUNTER → 2021-04-25 10:52 | Outpatient (CLI) | payer OTHER, SELFPAY ==
[2021-04-25 12:33] LABS: Basophils # 0.1 K/mm3 (0-0.2); Basophils % 0.5 % (0.1-2.0); Eosinophils # 0.2 K/mm3 (0.0-0.4); Eosinophils % 1.6 % (0.1-12.0); Hematocrit 38.6 % (37.0-47.0); Hemoglobin 13.6 g/dL (12.2-16.2); Lymphocytes # 2.2 K/mm3 (0.7-4.5); Lymphocytes % 23.9 % (10-50); Mean Corpuscular HGB Conc 35.2 g/dL (31.8-35.4); Mean Corpuscular Hemoglobin 31.7 pg (27.0-31.2); Mean Platelet Volume 9.9 fl (7.4-10.4); Monocytes # 0.6 K/mm3 (0.1-1.0); Monocytes % 7.1 % (1.7-9.3); Neutrophils % 66.8 % (37.0-80.0); Platelet Count 186 K/mm3 (142-424); Red Blood Count 4.29 M/mm3 (4.20-5.40); Red Cell Distribution Width 13.1 % (11.5-17.5)
[2021-04-26 05:12] LABS: Hepatitis B Surface Antigen Negative (Negative); Hepatitis C Antibody <0.1 s/co ratio (0.0-0.9)
[2021-04-26 09:18] LABS: HIV Screen 4th Generation wRfx Non Reactive (Non Reactive); Rubella Antibodies, IgG 2.14 index (Immune >0.99)
[2021-04-26 11:33] LABS: Rapid Plasma Reagin Ab Titer Non Reactive (NonRea<1:1)
== END ==
PROVIDERS: Visit Provider Obstetrics & Gynecology
DX: Z34.90 Encounter for supervision of normal pregnancy, unspecified, unspecified trimester (principal)
CPT/HCPCS: 84439; 84443; 85025; 86592; 86703; 86762; 86850; 87340; 87380; G0432

== ENCOUNTER → 2021-07-24 12:41 | Outpatient (CLI) | payer OTHER, SELFPAY ==
--- NOTE | 2021-07-24 12:42 | US_ITS ---
PROCEDURE: US OB >= 14 WEEKS FETUS CLINICAL INDICATION: OB complete COMPARISON: US US OB <= 14 WEEKS FETUS from 10/01/2020 FINDINGS: There is a single live fetus which is in breech presentation. The cervix is closed and measures 3 cm. The placenta is anterior with a wrap-around component posteriorly near the fundus. Placenta is grade 1. Complete survey performed and was unremarkable on the submitted images as in PACS. No discrete anomalies identified on survey imaging by technologist. Active fetus. Three-vessel cord with satisfactory umbilical cord insertion. 4- chamber heart noted. Survey of brain & ventricles Unremarkable. Face and neck survey unremarkable. Diaphragm and chest views unremarkable. Abdomen: Both kidneys noted and unremarkable. Stomach noted and satisfactory. Spine: Survey of the spine satisfactory with no anomalies identified nor imaged. Both arms and legs noted. Amniotic Fluid: Adequate. Maternal adnexa: No significant findings. Measurements: Average ultrasound age 20weeks 1day. Gestational Age 20weeks 1day Estimated due date by ultrasound age 0112/10/2021. Estimated weight 345g BPD = 20weeks OFD = 20weeks 3days HC = 19weeks 4days AC = 20weeks 2days FL = 20weeks 5days Growth Percentile= 55% Heart Rate = 150bpm Cerebellum = 20weeks Humerus = HC/AC is 1.13 CI is 0.76 FL/BPD is 0.74 FL/AC is 0.23 IMPRESSION: Live IUP in breech presentation. Average ultrasound age is 20 weeks 1 day. No obvious anomalies with all parameters correlating. Please see above for detail. Dictated by: Trent Short MD 07/24/2021 13:43 Trent Short MD in [facility] 07/24/2021 13:43
== END ==
PROVIDERS: PCP Obstetrics & Gynecology; Visit Provider Obstetrics & Gynecology
DX: Z34.90 Encounter for supervision of normal pregnancy, unspecified, unspecified trimester (principal)
CPT/HCPCS: 76805

== ENCOUNTER → 2021-08-30 07:07 | Outpatient (CLI) | payer OTHER, SELFPAY ==
[2021-08-30 07:21] LABS: Basophils # 0.1 K/mm3 (0-0.2); Basophils % 0.8 % (0.1-2.0); Eosinophils # 0.2 K/mm3 (0.0-0.4); Eosinophils % 1.8 % (0.1-12.0); Hematocrit 40.3 % (37.0-47.0); Hemoglobin 13.5 g/dL (12.2-16.2); Lymphocytes # 1.9 K/mm3 (0.7-4.5); Lymphocytes % 20.5 % (10-50); Mean Corpuscular HGB Conc 33.6 g/dL (31.8-35.4); Mean Corpuscular Hemoglobin 32.4 pg (27.0-31.2); Mean Corpuscular Volume 96.2 fl (81-99); Mean Platelet Volume 9.1 fl (7.4-10.4); Monocytes # 0.4 K/mm3 (0.1-1.0); Monocytes % 4.7 % (1.7-9.3); Neutrophils # 6.6 K/mm3 (1.8-7.8); Neutrophils % 72.1 % (37.0-80.0); Platelet Count 226 K/mm3 (142-424); Red Blood Count 4.19 M/mm3 (4.20-5.40); Red Cell Distribution Width 13.8 % (11.5-17.5); White Blood Count 9.1 K/mm3 (4.8-10.8)
[2021-08-30 07:30] LABS: Glucose,Fasting 75 mg/dl (74-100)
[2021-08-30 08:33] LABS: Coronavirus 19 IgG Antibody Positive (Negative); Coronavirus 19 IgM Antibody Negative (Negative)
[2021-08-30 09:11] LABS: Glucose 1 Hour 151 mg/dL (74-100)
== END ==
PROVIDERS: Visit Provider Obstetrics & Gynecology
DX: Z34.90 Encounter for supervision of normal pregnancy, unspecified, unspecified trimester (principal)
CPT/HCPCS: 36415; 82951; 85025; 86328

== ENCOUNTER → 2021-09-03 07:00 | Outpatient (CLI) | payer OTHER, SELFPAY ==
[2021-09-03 07:33] LABS: Glucose,Fasting 79 mg/dl (74-100)
[2021-09-03 09:14] LABS: Glucose 1 Hour 140 mg/dL (74-100)
[2021-09-03 10:13] LABS: Glucose 2 Hour 117 mg/dL (74-100)
[2021-09-03 11:06] LABS: Glucose 3 Hour 123 mg/dL (74-100)
== END ==
PROVIDERS: Visit Provider Obstetrics & Gynecology
DX: Z34.90 Encounter for supervision of normal pregnancy, unspecified, unspecified trimester (principal)
CPT/HCPCS: 36415; 82951

== ENCOUNTER → 2021-10-24 07:46 | Outpatient (CLI) | payer OTHER, SELFPAY ==
--- NOTE | 2021-10-24 07:46 | US_ITS ---
PROCEDURE: US OB FOLLOW UP CLINICAL INDICATION: Growth and ERICA FINDINGS: There is a single live fetus present in cephalic presentation. heart body motion noted. The cervix is closed and measures 3 cm. The placenta is anterior and grade 1-2. No previa or abruption demonstrated. The following parameters are obtained: Average ultrasound age is Average 33weeks 1day Estimated due date by ultrasound is 12/11/2021. Estimated weight is 2,090g. This is 32 percentile. BPD: 33weeks 3days OFD: 32 weeks 0 days HC: 32weeks 3days AC: 32weeks 6days FL: 33weeks 4days heart rate: 146bpm bpm. HC/AC: 1.02 Cephalic index: 0.8 FL/BPD: 0.78 FL/AC: 0.23 Amniotic fluid index: 11.4cm The femur length is 33weeks 4days IMPRESSION: Live IUP in cephalic presentation with an average ultrasound age of 33 weeks 1 day. Estimated weight is 2090 g which is 32 percentile. All parameters correlate. Normal amniotic fluid index. Dictated by: Trent Short MD 10/25/2021 08:47 Trent Short MD in [facility] 10/25/2021 08:47
== END ==
PROVIDERS: PCP Obstetrics & Gynecology; Visit Provider Obstetrics & Gynecology
DX: O36.5990 Maternal care for other known or suspected poor fetal growth, unspecified trimester, not applicable or unspecified (principal)
CPT/HCPCS: 76816

== ENCOUNTER → 2021-11-07 11:18 | Outpatient (CLI) | payer OTHER, SELFPAY | PROVIDERS: Visit Provider Nurse Practitioner | DX: U07.1 COVID-19 (principal) | CPT/HCPCS: C9803; U0003; U0005 ==

== ENCOUNTER → 2021-12-01 10:16 | Outpatient (CLI) | payer OTHER, SELFPAY ==
[2021-12-01 11:08] LABS: Basophils # 0.1 K/mm3 (0-0.2); Basophils % 0.9 % (0.1-2.0); Eosinophils % 0.5 % (0.1-12.0); Hematocrit 42.6 % (37.0-47.0); Hemoglobin 13.7 g/dL (12.2-16.2); Lymphocytes # 1.8 K/mm3 (0.7-4.5); Lymphocytes % 21.5 % (10-50); Mean Corpuscular HGB Conc 32.1 g/dL (31.8-35.4); Mean Corpuscular Hemoglobin 31.4 pg (27.0-31.2); Mean Corpuscular Volume 97.9 fl (81-99); Mean Platelet Volume 10.6 fl (7.4-10.4); Monocytes # 0.7 K/mm3 (0.1-1.0); Monocytes % 8.1 % (1.7-9.3); Neutrophils # 5.8 K/mm3 (1.8-7.8); Platelet Count 233 K/mm3 (142-424); Red Blood Count 4.35 M/mm3 (4.20-5.40); Red Cell Distribution Width 14.3 % (11.5-17.5); White Blood Count 8.4 K/mm3 (4.8-10.8)
[2021-12-01 11:56] LABS: Chloride 105 mmol/L (98-107); Potassium 4.2 mmoL/L (3.5-5.1); Sodium 136 mmol/L (136-145)
[2021-12-01 11:59] LABS: Alanine Aminotransferase 11 U/L (12-78); Albumin Level 3.9 g/dl (3.5-5.0); Albumin/Globulin Ratio 1.3 (1.1-1.8); Alkaline Phosphatase 161 U/L (38-126); Anion Gap 11.2 mEq/L (5-15); Aspartate Amino Transferase 26 U/L (14-36); Bilirubin,Total 0.4 mg/dl (0.2-1.3); Blood Urea Nitrogen 9 mg/dl (7-17); Calcium 9.4 mg/dl (8.4-10.2); Carbon Dioxide 24 mmol/L (22.0-30.0); Estimated Glomerular Filt Rate 98 ml/min (>60); GFR (African American) 118 ML/MIN (>60); Globulin 3.1 g/dL (1.3-3.2); Glucose 72 mg/dl (74-100)
== END ==
PROVIDERS: PCP Internal Medicine Adolescent Medicine; Visit Provider Obstetrics & Gynecology
DX: Z01.812 Encounter for preprocedural laboratory examination (principal); U07.1 COVID-19; N73.6 Female pelvic peritoneal adhesions (postinfective)
CPT/HCPCS: 36415; 80053; 85025; 86850; C9803; U0003; U0005

== ENCOUNTER 2021-12-03 04:51 | Inpatient (IN) | payer OTHER, SELFPAY ==
[2021-12-03] VITALS (9 sets, daily range): BP systolic 92–119; BP diastolic 53–68; PULSE 57–84; RESP 13–18; TEMP 36.1–37.2; O2SAT 96–100; BMI 26.4
[2021-12-03 05:53] LABS: Microscopic, Urine URINE MICROSCOPIC (MICROSCOPIC)
[2021-12-03 05:56] LABS: Appearance,Urine CLEAR (Clear); Bilirubin,Urine Negative (Negative); Blood, Urine Negative (Negative); Color,Urine YELLOW (Yellow); Glucose,Urine (UA) Negative (Negative); Ketones,Urine Negative (Negative); Leukocyte Esterase,Urine Negative (Negative); Nitrate,Urine Negative (Negative); PH,Urine 6.5 (5.0-8.5); Protein,Urine Negative (Negative); Urobilinogen,Urine 0.2 EU/dl (0.2)
[2021-12-03 06:06] LABS: Barbiturates Screen,Urine Negative ng/ml (<200)
[2021-12-03 06:07] LABS: Benzodiazepines Screen,Urine Negative ng/ml (<200)
[2021-12-03 06:08] LABS: Amphetamine/Metha Screen,Urine Negative ng/ml (<1000); Cannabinoid Screen,Urine Negative ng/ml (<50)
[2021-12-03 06:09] LABS: Cocaine Screen,Urine Negative ng/ml (<300)
[2021-12-03 06:10] LABS: Methadone Screen,Urine Negative ng/ml (<300); Opiate Screen,Urine Negative ng/ml (<300)
[2021-12-03 06:11] LABS: Phencyclidine Screen,Urine Negative ng/ml (<25)
[2021-12-03 06:33] LABS: Bacteria,Urine 1+ /lpf; RBC,Urine Occasional #/hpf (0-3)
--- NOTE | 2021-12-03 07:16 | HMH.HP ---
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 and was counseled by her previous OB that scheduled c section would be the safest method of delivery given her abdominal and pelvic adhesions care at [facility] was complicated by Covid-19 infection in October 2021; she was treated with monoclonal antibodies and is currently asymptomatic [facility] History I have reviewed the patient's past medical history: Yes Medical History: Reports:: MRSA Denies:: Cancer, Diabetes Mellitus Type 1, Diabetes Mellitus Type 2, Internal Pacemaker, Seizures *Have you ever received a pneumonia vaccine?: No *Have you received a flu vaccine this season?: No Other Medical History: Reports: Other. Denies: Blood Transfusion Reaction Anesthesia experience/problems:: nac Other Surgeries: Yes: Cholecystectomy, Colon Resection, Dilation and Curettage, Diagnostic Lap, EGD, Other (unilateral salpingectomy). 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), Endometriosis : 3 Para: 0 Review of Systems - Review of Systems Review of systems:: pertinent systems reviewed and negative unless documented below - Constitutional Denies chills, Denies fever(s) - *Respiratory Denies cough, Denies shortness of breath - *Genitourinary Denies abnormal vaginal bleeding Meds Home Medications Medication Instructions Recorded Confirmed Type polyethylene glycol 3350 17 17 g PO Q10M PRN 01/11/18 11/25/21 History gram/dose oral powder coenzyme Q10 10 mg capsule 10 mg PO DAILY cap 10/01/20 11/25/21 History cyanocobalamin (vitamin B-12) 1,000 mcg PO DAILY 10/01/20 11/25/21 History 1,000 mcg capsule ondansetron 4 mg disintegrating 4 mg PO Q4H PRN #30 tab 10/01/20 11/25/21 Rx tablet prenat.vits,andrew,nuw-hxwf-ejlul 1 tab PO DAILY 10/01/20 11/25/21 History Lactobacills gasseri-Bifidobac cap PO 04/23/21 11/25/21 History bifidum,longum 1.5 billion cell capsule doxylamine 10 mg-pyridoxine (vit 1 tab PO BID #60 tab 05/07/21 11/25/21 Rx B6) 10 mg tablet,delayed release progesterone micronized 100 mg 1 insert VAGINAL BID #21 each 05/28/21 11/25/21 Rx vaginal insert omeprazole 20 mg capsule,delayed 20 mg PO DAILY 10/01/21 11/25/21 History release Allergies Allergy/AdvReac Type Severity Reaction Status Date / Time metoclopramide [From Reglan] Allergy Mild hyper, Verified 11/25/21 10:15 skin felt werid Opioids - Morphine Analogues Allergy Mild vomiting Verified 11/25/21 10:15 prochlorperazine Allergy Mild vomiting Verified 11/25/21 10:15 [From Compazine] nickel Allergy Verified 11/25/21 10:15 Exam Vital signs and Labs for Last 24 Hours: Temp Pulse Resp BP Pulse Ox 97 F L 73 16 119/57 L 98 12/03/21 09:01 12/03/21 09:01 12/03/21 09:01 12/03/21 09:01 12/03/21 06:10 Laboratory Results - last 24 hr 12/03/21 05:30: Urine Color Yellow, Urine Appearance Clear, Urine pH 6.5, Ur Specific [place] 1.020, Urine Protein Negative, Urine Glucose (UA) Negative, Urine Ketones Negative, Urine Blood Negative, Urine Nitrate Negative, Urine Bilirubin Negative, Urine Urobilinogen 0.2, Ur Leukocyte Esterase Negative, Urine RBC Occasional, Urine WBC 3-5, Ur Squamous Epith Cells 5-10, Urine Bacteria 1+ 12/03/21 05:30: Urine Opiates Screen Negative, Urine Methadone Screen Negative, Ur Barbituates Screen Negative, Ur Phencyclidine Scrn Negative, Ur Amphetamines Screen Negative, U Benzo
--- NOTE | 2021-12-03 08:56 | P.PN_ITS ---
[facility] Anesthesia Checklist - Patient Identification Patient Identification: Arm Band - Structural Data Admitted From: Inpatient Planned Operative Procedure/s: Primary C/S Consent for Planned Operative Procedure(s) Verified: Yes Verified Documents: Surgical Consent, History and Physical - NPO Status Verified Time NPO: 00:00 - Additional verifications Anesthesia Reactions: No Hx Blood Transfusions: No Blood Transfusion Reaction: No - Airway Assessment C-Spine Mobility Assessed: Yes (mp2) TMJ Mobility Assessed: Yes Dentition: Good Dentition - Neurological Assessment Level of Consciousness: Awake, Alert - Anesthesia Plan Anesthesia Risk discussed: Yes Anesthesia Plan: Verified ASA Class: II Anesthesia Type: Spinal (with Bilateral TAP block) - Preoperative Comments Pre-Operative Comments: Pt states she has hx 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 Pt today denies any motor or sensory defecits but does state that she does not feel hot/cold from chest down. I discussed anesthesia options with pt by going over risks/benefits of both GA and SAB. Pt is adament that she does not want GA. We will proceed with SAB and pt verbalized understanding of risks/benefits [facility] History I have reviewed the patient's past medical history: Yes Medical History: Reports:: MRSA Denies:: Cancer, Diabetes Mellitus Type 1, Diabetes Mellitus Type 2, Internal Pacemaker, Seizures *Have you ever received a pneumonia vaccine?: No *Have you received a flu vaccine this season?: No Other Medical History: Reports: Other. Denies: Blood Transfusion Reaction Anesthesia experience/problems:: nac Other Surgeries: Yes: Cholecystectomy, Dilation and Curettage, Diagnostic Lap, EGD, Other. 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
--- NOTE | 2021-12-03 09:00 | P.PN_ITS ---
[facility] Anesthesia Record Part I Intake, IV Amount: 2,000 Estimated blood loss (mL): 700 Urine output (mL): 100 Blood Pressure: 119/57 SaO2: 98 Pulse Rate: 73 Respiratory Rate: 16 Temperature: 97 F Patient is:: Stable Stable to PACU at:: 08:50
[2021-12-03 09:25] LABS: Coronavirus 19, PCR Not Detected (NotDetected); Influenza A, PCR Not Detected (NotDetected); Influenza B, PCR Not Detected (NotDetected)
--- NOTE | 2021-12-03 10:02 | SUR.PHASEI ---
0938 Detailed report given to ZEHRA Nicolas RN
--- NOTE | 2021-12-03 10:21 | SUR.OPER ---
[id number]-viable infant male born at this time
--- NOTE | 2021-12-03 10:45 | P.OP_ITS ---
Date of procedure: 12/03/21 Pre-op Diagnosis:: 1. 39 week gestation 2. History of bowel resection with abdominal/pelvic adhesions 3. Covid-19 infection Post-op Diagnosis:: Same Procedure performed:: Primary Low Transverse C Section Surgeon:: Chani Romero MD Sales Order Clerk(s):: Castillo Gardner MD GLASSWARE FINISHER:: Quan Freedmandebbi Anesthesia: spinal Estimated blood loss (mL): 700 Operative findings:: vigorous male , vertex presentation grossly normal uterus abdominal and pelvic adhesions Operative note:: The patient was taken to the OR and spinal was administered without difficulty. She was prepped and draped in normal sterile fashion. A pfannenstiel skin incision was made with the scalpel through her previous laparotomy incision. This incision was carried down to the fascia, with moderate adhesions in the subcutaneous layer. The fascia was incised in the midline and sharply dissected off the rectus muscles. The muscles were in the midline and the peritoneum was entered sharply and extended bluntly. Pelvic adhesions were carefully dissected as the peritoneum was extended inferiorly, with good visualization of the bladder. The Jaswinder-O self retaining retractor was placed in the abdomen and a bladder flap was created. The uterus was incised in the lower uterine segment in a transverse fashion and extended bluntly. Amniotomy was performed and clear fluid noted. The infant was delivered in controlled fashion, without complication or shoulder dystocia. The was vigorous at and handed to awaiting kitchen steward and nursing staff for evaluation after cord was clamped and cut. Cord blood was collected and a cord segment was preserved. The placenta was manually extracted and noted to be intact. The uterus was repaired with 0-vicryl in a running/locked fashion, in 2 layers. The bladder flap was closed with 2-0 vicryl in a running fashion. The peritoneum was closed with 2-0 vicryl in a running fashion. The fascia was closed with #1 vicryl in a running fashion. The subcutaneous fat was closed with 2-0 vicryl in an interrupted fashion. The skin was closed with 2-0 stratafix in a subcuticular fashion. The patient tolerated the procedure well. Sponge, lap, needle and instrument counts were correct x 2. EBL: 700cc. TAP block was placed by anesthesia after conclusion of procedure. She was taken to PACU awake and in stable condition. Condition: stable Disposition: PACU Specimens:: placenta Complications:: none
--- NOTE | 2021-12-03 11:21 | HMH.PHAVTE ---
[facility] Pharmacy VTE Monitoring - Patient Demographics Admission date: 12/03/21 Report Date: 12/03/21 Time: 11:21 Allergies/Adverse Reactions: Patient Allergies metoclopramide [From Reglan] Allergy (Mild, Verified 11/25/21 10:15) hyper, skin felt werid Opioids - Morphine Analogues Allergy (Mild, Verified 11/25/21 10:15) vomiting prochlorperazine [From Compazine] Allergy (Mild, Verified 11/25/21 10:15) vomiting nickel Allergy (Verified 11/25/21 10:15) Height: 1.68 m Weight: 74.389 kg Patient Problems: Current Active Problems Abdominal adhesions (Acute) 39 weeks gestation of (Acute) COVID-19 affecting , antepartum (Acute) History of bowel resection (Acute) Crohn disease (Acute) Pelvic adhesions (Acute) - Prophylaxis VTE Prophylaxis Ordered?: Yes Types of VTE Prophylaxis: TEDS Knee High Location of Applied Device: Bilateral Lower Extremeties
[2021-12-03 14:50] LABS: Microscopic,Cath URINE MICROSCOPIC (MICROSCOPIC)
--- NOTE | 2021-12-03 14:59 | HMH.ANESII ---
[facility] Anesthesia Record Part II Discharge Time: 09:35 Destination: Obstetric PACU nurse assessment reviewed?: Yes Patient Condition:: Good Anesthesia Complications:: None Swallowing reflex intact?: Yes Cyanosis?: No Blood Pressure: 95/62 Pulse Rate: 57 Temperature: 97.8 F Mental Status: Alert & Oriented Pain level:: 0 Nausea and/or vomitting:: None Intake, IV Amount: 0
[2021-12-03 15:16] LABS: Appearance,Urine/Cath CLEAR (Clear); Bilirubin,Cath Negative (Negative); Blood, Urine/Cath Negative (Negative); Color,Urine/Cath YELLOW (Yellow); Glucose,Urine/Cath (UA) Negative (Negative); Ketones,Urine/Cath Negative (Negative); Leukocyte Esterase,Cath Negative (Negative); Nitrate,Cath Negative (Negative); Protein,Urine/Cath Negative (Negative); Urobilinogen,Cath 0.2 EU/dl (0.2)
[2021-12-04 05:14] LABS: POC Glucose,Bedside 58 (70-110)
[2021-12-04 08:33] LABS: Hematocrit 33.4 % (37.0-47.0)
--- NOTE | 2021-12-04 14:05 | P.PN_ITS ---
Internal Medicine - PN: Subj *Date: 12/04/21 *Time: 14:05 Interval history: POD #1 Primary LTCS Tolerating regular diet Ambulating and voiding without difficulty Lochia appropriate Asymptomatic with postop anemia; Hgb 11.0 Insufficient pain control with oxycodone Exam Vital signs and Labs for Last 24 Hours: Temp Pulse Resp BP Pulse Ox 97.8 F 57 L 14 95/62 L 99 12/03/21 14:59 12/03/21 14:59 12/03/21 09:35 12/03/21 14:59 12/03/21 09:35 Laboratory Results - last 24 hr 12/03/21 07:55: Urine Color Yellow, Urine Appearance Clear, Urine pH 7.0, Ur Specific [place] 1.010, Urine Protein Negative, Urine Glucose (UA) Negative, Urine Ketones Negative, Urine Blood Negative, Urine Nitrate Negative, Urine Bilirubin Negative, Urine Urobilinogen 0.2, Ur Leukocyte Esterase Negative, Urine RBC None, Urine WBC None, Ur Squamous Epith Cells None, Urine Bacteria None 12/03/21 12:00: Blood Type O Positive, Antibody Screen Negative, Crossmatch (AHG) See Detail 12/04/21 05:05: POC Glucose 58 L 12/04/21 07:14: Hgb 11.0 L, Hct 33.4 L I & O for Last 24 hours: Intake & Output 12/02/21 12/03/21 12/04/21 12/05/21 11:59 11:59 11:59 11:59 Intake Total 1999 0 / 0 Output Total 150 / 150 1200 / 1200 Balance 1850 / 1850 -1200 / -1200 Weight 164 lb Narrative: CONSTITUTIONAL: no acute distress HEENT: mucous membranes moist PULMONARY: breathing unlabored without audible wheezes CV: no tachycardia or visible JVD; normal LE peripheral pulses ABD: soft, ND; appropriately tender but no rebound/guarding : fundus firm below umbilicus SKIN: incision well approximated with no drainage, erythema or induration EXT: 1+ edema LEs NEURO: alert/oriented, no altered mental status PSYCH: appropriate mood and demeanor Assessment and Plan (1) 39 weeks gestation of Status: Acute Category: Medical Code(s): Z3A.39 - 39 weeks gestation of (2) Crohn disease Status: Acute Category: Medical Code(s): K50.90 - Crohn's disease, unspecified, without complications (3) History of bowel resection Status: Acute Category: Surgical Code(s): Z90.49 - Acquired absence of other specified parts of digestive tract (4) Abdominal adhesions Status: Acute Category: Medical Code(s): K66.0 - Peritoneal adhesions (postprocedural) (postinfection) (5) Pelvic adhesions Status: Acute Category: Medical Code(s): N73.6 - Female pelvic peritoneal adhesions (postinfective) (6) COVID-19 affecting , antepartum Status: Acute Category: Medical Code(s): O98.519 - Other viral diseases complicating , unspecified trimester; U07.1 - COVID-19 (7) Delivery by section Status: Acute Category: Surgical (8) Anemia associated with acute blood loss Status: Acute Category: Medical Code(s): D62 - Acute posthemorrhagic anemia - Assessment and plan all Dx Assessment and Plan for all problems:: Routine postop/ care PNV with FeSO4 Trial of po dilaudid instead of oxycodone
[2021-12-04 20:41] VITALS: BP 103/51; PULSE 63; RESP 18; TEMP 36.6; O2SAT 98
[2021-12-05 03:48] VITALS: BP 111/56; PULSE 78; RESP 17; TEMP 37.1; O2SAT 98
--- NOTE | 2021-12-05 12:05 | P.DS_ITS ---
General - General Admission date:: 12/03/21 Discharge date: 12/05/21 HPI HPI: 31 yo @ 39 wks admitted for elective primary c section History of 2 previous SAB with D&C Patient has a history of extensive abdominal surgery and bowel resection re lating to [facility]'s and was counseled by her previous OB that scheduled c section would be the safest method of delivery given her abdominal and pelvic adhesions care at [facility] was complicated by Covid-19 infection in October 2021; she was treated with monoclonal antibodies and is currently asymptomatic Hospital Course Hospital Course: Discharged home on PPD/POD #2 in stable condition She is tolerating a regular diet, ambulating and voiding without difficulty Pain control improved with po dilaudid compared to oxycodone Objective Vital signs: Temp Pulse Resp BP Pulse Ox 98.7 F 78 17 111/56 L 98 12/05/21 03:48 12/05/21 03:48 12/05/21 03:48 12/05/21 03:48 12/05/21 03:48 Narrative: CONSTITUTIONAL: no acute distress HEENT: mucous membranes moist PULMONARY: breathing unlabored without audible wheezes CV: no tachycardia or visible JVD; normal LE peripheral pulses ABD: soft, ND; appropriately tender but no rebound/guarding : fundus firm below umbilicus SKIN: incision well approximated with no drainage, erythema or induration EXT: 1+ edema LEs NEURO: alert/oriented, no altered mental status PSYCH: appropriate mood and demeanor DS: Diagnosis - Discharge Diagnosis (1) 39 weeks gestation of Status: Acute (2) Crohn disease Status: Acute (3) History of bowel resection Status: Acute (4) Abdominal adhesions Status: Acute (5) Pelvic adhesions Status: Acute (6) COVID-19 affecting , antepartum Status: Acute (7) Delivery by section Status: Acute (8) Anemia associated with acute blood loss Status: Acute Discharge Plan - Patient Discharge Instructions ACTIVITY: Continue current activity DIET: regular diet Additional Instructions: No heavy lifting/strenuous activity. Nothing in the vagina for 6 weeks. No driving for 2 weeks or while taking prescription narcotic. Patient Instructions: Depression, Hemorrhage, DI for , DI for Pre-eclampsia, [facility] Post Discharge Instructions, Preventing the Spread of Coronavirus Discharge Instructions - Follow up Plan Follow up with: Chani Romero MD [Staff Physician] - Disposition: Home, Self-Care Condition at discharge:: Stable Home Medications: Home Medications Medication Instructions Recorded Confirmed Type prenat.vits,andrew,apc-veij-wxper 1 tab PO DAILY 10/01/20 12/03/21 History Hydromorphone HCl [Dilaudid 2mg 2 mg PO Q6HP PRN #30 tablet 12/05/21 Rx tablet] Ibuprofen [Motrin 400mg 800 mg PO Q6H #40 tab 12/05/21 Rx tablet] Prescriptions/Medication Reconciliation: New Acetaminophen [Acetaminophen 325mg tab] 650 mg PO Q4HP PRN tablet PRN Reason: Mild Pain Hydromorphone HCl [Dilaudid 2mg tablet] 2 mg PO Q6HP PRN #30 tablet PRN Reason: MODERATE TO SEVERE PAIN Ibuprofen [Motrin 400mg tablet] 800 mg PO Q6H #40 tab Continued prenat.vits,andrew,eqt-azco-jrruu 1 tab PO DAILY - Problem Reconciliation Problem
--- NOTE | 2021-12-10 11:09 | PC.NURSE ---
F/C removed by Irma Hall RN
== END 2021-12-05 15:00 | disposition home or self-care (01) | DRG 788 ==
PROVIDERS: Admitting Provider Obstetrics & Gynecology; PCP Internal Medicine Adolescent Medicine; Visit Provider Obstetrics & Gynecology
PROC: 10D00Z1 Extraction of Products of Conception, Low, Open Approach (ICD-10-PCS; CPT 59514; principal; 2021-12-03 07:30)
DX: O99.62 Diseases of the digestive system complicating childbirth (principal); Z3A.39 39 weeks gestation of pregnancy; Z37.0 Single live birth; Z86.16 Personal history of COVID-19; Z87.891 Personal history of nicotine dependence; K66.0 Peritoneal adhesions (postprocedural) (postinfection)
CPT/HCPCS: 59514; 36415; 59025; 80305; 81001; 82962; 85014; 85018; 86850; 94761; C9290; C9803; G0283; J2405; U0003; U0005

== ENCOUNTER → 2022-01-02 14:08 | Outpatient (CLI) | payer OTHER, SELFPAY ==
[2022-01-02 14:19] LABS: Adenovirus F 40/41, stool Not Detected (NotDetected); Astrovirus Not Detected (NotDetected); Campylobacter Not Detected (NotDetected); Clostridium Difficile A/B, PCR Not Detected (NotDetected); Cryptosporidium Not Detected (NotDetected); Cyclospora Cayetanesis Not Detected (NotDetected); Entamoeba histolytica Not Detected (NotDetected); Enteroaggregative E coli Not Detected (NotDetected); Enteropathogenic E coli Not Detected (NotDetected); Enterotoxigenic E coli Not Detected (NotDetected); Giardia lamblia Not Detected (NotDetected); Norovirus Not Detected (NotDetected); Plesimonas Shigalloides, PCR Not Detected (NotDetected); Rotavirus A Not Detected (NotDetected); Salmonella, PCR Not Detected (NotDetected); Sapovirus Not Detected (NotDetected); Shiga-like toxin E coli Not Detected (NotDetected); Shigella Enterovasive E coli Not Detected (NotDetected); Vibrio Cholerae Not Detected (NotDetected); Vibrio, PCR Not Detected (NotDetected); Yersinia Entercolitica, PCR Not Detected (NotDetected)
== END ==
PROVIDERS: Visit Provider Internal Medicine Adolescent Medicine
DX: A09 Infectious gastroenteritis and colitis, unspecified (principal)
CPT/HCPCS: 87507

== ENCOUNTER → 2022-04-01 13:57 | Outpatient (CLI) | payer OTHER, SELFPAY ==
[2022-04-01 14:44] LABS: HCG,Quantitative < 2 mIU/ml (0-5.42)
== END ==
PROVIDERS: Visit Provider Obstetrics & Gynecology
DX: Z32.01 Encounter for pregnancy test, result positive (principal)
CPT/HCPCS: 36415; 84702

== ENCOUNTER 2022-04-06 20:21 | Emergency (ER) | payer OTHER, SELFPAY ==
[2022-04-06 20:35] VITALS: BP 102/73; PULSE 139; RESP 18; TEMP 38.4; O2SAT 97; BMI 22.6
--- NOTE | 2022-04-06 20:52 | HMH.EDURI ---
ED Disposition Clinical Impression: COVID-19 Disposition: Home, Self-Care Condition on Discharge: Good Instructions: DI for COVID-19 (Suspected or Confirmed ) Additional Instructions: fluids and use meds as directed Referrals: Maximus Capps MD [Primary Care Provider] - - Critical Care Critical Care Time: No Attestation: On 04/06/22, the high probability of a clinically significant, sudden or life threatening deterioration of the following system(s) required my full and direct attention, intervention and personal management. The time I documented below is in addition to time spent performing reported procedures but includes the following listed in this critical care notation. Medical Decision Making - Medical Records Medical records reviewed: Yes: I reviewed the patient's medical records. - Eitan Inquiry Pt receiving controlled substance: No Vital Signs: 04/06/22 20:35 04/06/22 21:00 04/06/22 22:00 Temperature 101.1 F H Temperature Source Oral Pulse Rate 89 68 Pulse Rate [Right Brachial] 139 H Respiratory Rate 18 Blood Pressure 95/60 L 110/67 Blood Pressure [Right Arm] 102/73 L Blood Pressure Mean [Right Arm] 82 Blood Pressure Source [Right Arm] Automatic Cuff Blood Pressure Position [Right Arm] Supine 02 Sat by Pulse Oximetry 97 96 96 Oxygen Delivery Method Room Air Room Air Room Air - Lab Data Lab results reviewed: Yes: I reviewed the patient's lab results. Lab Results 04/06/22 20:27: Chlamy pneumoniae PCR Not detected, Adenovirus (PCR) Not detected, B. pertussis DNA (PCR) Not detected, Coronavirus OC43 (PCR) Not detected, Coronavirus HKU1 (PCR) Not detected, Coronavirus 229E (PCR) Not detected, SARS-CoV-2 (PCR) Detected A, Coronavirus NL63 (PCR) Not detected, Human Metapneumovir PCR Not detected, Influenza A (H1) PCR Not detected, Influ A (H1N1/09) PCR Not detected, Influenza A (H3) PCR Not detected, Influenza Type A (PCR) Not detected, Influenza Type B (PCR) Not detected, M. pneumoniae (PCR) Not detected, Parainfluenza 1 (PCR) Not detected, Parainfluenza 2 (PCR) Not detected, Parainfluenza 3 (PCR) Not detected, Parainfluenza 4 (PCR) Not detected, RSV (PCR) Not detected, Entero/Rhino (PCR) Not detected 04/06/22 21:12: WBC 6.8, RBC 4.27, Hgb 13.5, Hct 39.1, MCV 91.5, MCH 31.7 H, MCHC 34.6, RDW 13.7, Plt Count 187, MPV 10.2, Neut % (Auto) 70.8, Lymph % (Auto) 14.2, Pepin % (Auto) 11.5 H, Eos % (Auto) 0.5, Baso % (Auto) 2.9 H, Neut # (Auto) 4.8, Lymph # (Auto) 1.0, Pepin # (Auto) 0.8, Eos # (Auto) 0.0, Baso # (Auto) 0.2 04/06/22 21:12: Sodium 137, Potassium 3.7, Chloride 105, Carbon Dioxide 24, Anion Gap 11.7, BUN 9, Creatinine 0.80, Estimated Creat Clear 101, Estimated GFR 83, Est GFR ( Amer) 101, Glucose 100, Calcium 8.9, Total Bilirubin 0.3, AST 26, ALT 21, Alkaline Phosphatase 80, Total Protein 7.1, Albumin 4.4, Globulin 2.7, Albumin/Globulin Ratio 1.6 04/06/22 21:12: Mycoplasma pneumon IgM Non-reactive Result diagrams: 04/06/22 21:12 04/06/22 21:12 Orders (Tests/Meds): ED MEDICATIONS Generic Name Dose Route Start Last Admin Trade Name Freq PRN Reason Stop Dose Admin Sodium Chloride 500 mls @ 999 mls/hr 04/06/22 21:00 04/06/22 21:02 Sod Chlor 0.9% 1000ml Bag IV 04/06/22 21:30 999 mls/hr .Q31M KEVAN Administration Discontinued Medications Generic Name Dose Route Start Last Admin Trade Name Freq PRN Reason Stop Dose Admin Ketorolac Tromethamine 30 mg 04/06/22 21:46 04/06/22 21:50 Ketorolac 30mg/Ml Vial IV 04/06/22 21:47 30 mg ONCE ONE Administration - Radiology Data #1 Image(s): Chest Image Reviewed: Yes I have reviewed radiologist's interpretation Preliminary Findings: Normal/NAD Medical Decision Narrative: has stable exam with positive covid-19 and breast feeding URI/Sore Throat HPI - General Chief Complaint: Upper Respiratory Infection Stated Complaint: fever,unstable,cough congestion Time Seen by Provider:
--- NOTE | 2022-04-06 20:56 | XR_ITS ---
PROCEDURE INFORMATION: Exam: XR Chest Exam date and time: 04/06/2022 9:04 PM Age: 32 years old Clinical indication: Cough TECHNIQUE: Imaging protocol: XR of the chest. Views: 2 views. COMPARISON: CT ABDOMEN PELVIS W CON 05/21/2020 12:36 PM FINDINGS: Lungs: Unremarkable. No consolidation. Pleural spaces: Unremarkable. No pleural effusion. No pneumothorax. Heart/Mediastinum: Unremarkable. No cardiomegaly. Bones/joints: Unremarkable. IMPRESSION: No acute findings.
[2022-04-06 21:00] VITALS: BP 95/60; PULSE 89; O2SAT 96
[2022-04-06 21:01] LABS: Adenovirus,PCR Not Detected (NotDetected); Bordetella Pertussis Not Detected (NotDetected); Chlamydophila Pneumoniae, PCR Not Detected (NotDetected); Coronavirus 229E Not Detected (NotDetected); Coronavirus NL63 Not Detected (NotDetected); Coronavirus OC43 Not Detected (NotDetected); Coronovirus HKU1,PCR Not Detected (NotDetected); Human Metapneumovirus Not Detected (NotDetected); Influenza A, PCR Not Detected (NotDetected); Influenza AH1, 2009 Not Detected (NotDetected); Influenza AH1, PCR Not Detected (NotDetected); Influenza AH3,PCR Not Detected (NotDetected); Influenza B, PCR Not Detected (NotDetected); Mycoplasma Pneumoniae, PCR Not Detected (NotDetected); Parainfluenza 1, PCR Not Detected (NotDetected); Parainfluenza 2, PCR Not Detected (NotDetected); Parainfluenza 3, PCR Not Detected (NotDetected); Parainfluenza 4, PCR Not Detected (NotDetected); Respiratory Syncytial Virus Not Detected (NotDetected); Rhinovirus/Enterovirus Not Detected (NotDetected)
--- NOTE | 2022-04-06 21:13 | PC.NURSE ---
Pt to X-ray at this time
[2022-04-06 21:22] LABS: Basophils # 0.2 K/mm3 (0-0.2); Basophils % 2.9 % (0.1-2.0); Eosinophils % 0.5 % (0.1-12.0); Hematocrit 39.1 % (37.0-47.0); Hemoglobin 13.5 g/dL (12.2-16.2); Lymphocytes % 14.2 % (10-50); Mean Corpuscular HGB Conc 34.6 g/dL (31.8-35.4); Mean Corpuscular Hemoglobin 31.7 pg (27.0-31.2); Mean Corpuscular Volume 91.5 fl (81-99); Mean Platelet Volume 10.2 fl (7.4-10.4); Monocytes # 0.8 K/mm3 (0.1-1.0); Monocytes % 11.5 % (1.7-9.3); Neutrophils # 4.8 K/mm3 (1.8-7.8); Neutrophils % 70.8 % (37.0-80.0); Platelet Count 187 K/mm3 (142-424); Red Blood Count 4.27 M/mm3 (4.20-5.40); Red Cell Distribution Width 13.7 % (11.5-17.5); White Blood Count 6.8 K/mm3 (4.8-10.8)
[2022-04-06 21:29] LABS: Chloride 105 mmol/L (98-107); Potassium 3.7 mmoL/L (3.5-5.1); Sodium 137 mmol/L (136-145)
[2022-04-06 21:32] LABS: Alanine Aminotransferase 21 U/L (12-78); Albumin Level 4.4 g/dl (3.5-5.0); Albumin/Globulin Ratio 1.6 (1.1-1.8); Alkaline Phosphatase 80 U/L (38-126); Anion Gap 11.7 mEq/L (5-15); Aspartate Amino Transferase 26 U/L (14-36); Bilirubin,Total 0.3 mg/dl (0.2-1.3); Blood Urea Nitrogen 9 mg/dl (7-17); Calcium 8.9 mg/dl (8.4-10.2); Carbon Dioxide 24 mmol/L (22.0-30.0); Creatinine Clearance Estimated 101 mL/min (50-200); Estimated Glomerular Filt Rate 83 ml/min (>60); GFR (African American) 101 ML/MIN (>60); Globulin 2.7 g/dL (1.3-3.2); Glucose 100 mg/dl (74-100); Total Protein,Serum 7.1 g/dl (6.3-8.2)
[2022-04-06 21:43] LABS: Mycoplasma Pneumo IGM (Rapid) Non-Reactive (Non-Reactiv)
[2022-04-06 22:00] VITALS: BP 110/67; PULSE 68; O2SAT 96
--- NOTE | 2022-04-06 22:05 | PC.NURSE ---
Called lab for update on respiratory swab. approximately 15 mins left
[2022-04-06 22:20] LABS: Coronavirus 19, PCR Detected (NotDetected)
--- NOTE | 2022-04-06 22:41 | PC.NURSE ---
OVIDIO PUGH speaking to Dr. Foy
[2022-04-06 22:52] VITALS: BP 112/64; PULSE 68; RESP 16; TEMP 36.9; O2SAT 98
== END 2022-04-06 23:01 | disposition home or self-care (01) ==
PROVIDERS: Emergency Provider Emergency Medicine; PCP Internal Medicine Adolescent Medicine
DX: U07.1 COVID-19 (principal); R50.9 Fever, unspecified; R05.9 Cough, unspecified; R09.89 Other specified symptoms and signs involving the circulatory and respiratory systems; R26.81 Unsteadiness on feet; Z88.8 Allergy status to other drugs, medicaments and biological substances
CPT/HCPCS: 71046; 80053; 85025; 86738; 87581; 87632; 87798; 99283; C9803; U0003; U0005

== ENCOUNTER → 2022-08-25 10:30 | Outpatient (CLI) | payer OTHER, SELFPAY | PROVIDERS: Visit Provider Nurse Practitioner Obstetrics & Gynecology | DX: N39.0 Urinary tract infection, site not specified (principal) | CPT/HCPCS: 87086 ==

== ENCOUNTER → 2022-09-09 16:53 | Outpatient (CLI) | payer OTHER, SELFPAY | PROVIDERS: Visit Provider Obstetrics & Gynecology | DX: R35.0 Frequency of micturition (principal) | CPT/HCPCS: 87086 ==

== ENCOUNTER 2022-10-12 09:40 | Emergency (ER) | payer OTHER, SELFPAY ==
[2022-10-12 11:40] VITALS: BP 121/67; PULSE 102; RESP 19; TEMP 36.8; O2SAT 100; BMI 23.6
[2022-10-12 11:54] LABS: Adenovirus,PCR Not Detected (NotDetected); Bordetella Pertussis Not Detected (NotDetected); Chlamydophila Pneumoniae, PCR Not Detected (NotDetected); Coronavirus 19, PCR Not Detected (NotDetected); Coronavirus 229E Not Detected (NotDetected); Coronavirus NL63 Not Detected (NotDetected); Coronavirus OC43 Not Detected (NotDetected); Coronovirus HKU1,PCR Not Detected (NotDetected); Human Metapneumovirus Not Detected (NotDetected); Influenza A, PCR Not Detected (NotDetected); Influenza AH1, 2009 Not Detected (NotDetected); Influenza AH1, PCR Not Detected (NotDetected); Influenza AH3,PCR Not Detected (NotDetected); Influenza B, PCR Not Detected (NotDetected); Mycoplasma Pneumoniae, PCR Not Detected (NotDetected); Parainfluenza 1, PCR Not Detected (NotDetected); Parainfluenza 2, PCR Not Detected (NotDetected); Parainfluenza 3, PCR Not Detected (NotDetected); Parainfluenza 4, PCR Not Detected (NotDetected); Respiratory Syncytial Virus Not Detected (NotDetected); Rhinovirus/Enterovirus Not Detected (NotDetected)
--- NOTE | 2022-10-12 11:59 | EXP.UTC ---
Discharge Plan Disposition Patient Disposition: Home, Self-Care Condition: Good Prescriptions Prescriptions: No Action prenat.vits,andrew,[id number] Tablet 1 tab PO DAILY escitalopram oxalate 10 mg tablet 10 mg PO DAILY sumatriptan succinate 100 mg tablet PO Referrals Follow up/Referrals: Maximus Capps MD [Primary Care Provider] - See instructions Activity Restrictions/Add. Instructions Additional Instructions/Restrictions: *Monitor Temp, Over the counter Motrin or Tylenol as directed/as needed Tylenol every 4 hours and Motrin every 6 hours (as long as your family doctor has told you that you can take it) for fever or pain. and straight to ER if unable to lower temp less than 101.0 after medication given *Warm salt water gargles may help to soothe the throat *Throat Lozenges? *Warm fluids like tea with honey may help to soothe the throat? *Sleep elevated *Humidifier/Vaporizer Your throat swab was sent for culture. Those results are typically sent to your primary care. Be sure to follow up in 2-3 days with your family doctor/primary care physician if no improvement so they can review those result and treat if necessary. If you don?t have a primary care doctor, I recommend you get one but in the mean time, you will have to return to a walk in clinic Follow up IMMEDIATELY for new or worsening symptoms or no Noticeable improvement over the next 48-72 hours. 911 for difficulty breathing or swallowing You were tested for today for ?Upper Respiratory Panel with COVID19 your test result should be back in the next 24-48 hours, you may check your results on the [facility] Clinical Impressions Clinical Impression: Viral upper respiratory tract infection with cough Stand Alone Forms Stand Alone Forms: Work/School Release Instructions Patient Instructions: Cough, DI for Viral Upper Respiratory Infection -- Adult Discharge ED Provider: Constanza Jones [facility] [place] HPI General Stated complaint: BA, sore throat, chest congestion Time Seen by Provider: 10/12/22 11:59 History of Present Illness Provider Complaint: Patient state that she was fine yesterday morning and then about midday it hit her she started with body aches, chills, sore throat cough and felt like she had some chest congestion State that she isnt coughing anything up but has had some clear drainage from the nose States that today she was still feeling achy all over and over all not feeling well and she has infant at home having similar symptoms Related Data Home Medications Medication Instructions Recorded Confirmed prenat.vits,andrew,[id number] 1 tab PO DAILY Supplement 10/01/20 10/07/22 escitalopram oxalate 10 mg tablet 10 mg PO DAILY 12/31/21 10/07/22 sumatriptan succinate 100 mg tablet mg PO 12/31/21 10/07/22 Allergies Allergy/AdvReac Type Severity Reaction Status Date / Time metoclopramide [From Reglan] Allergy Mild hyper, Verified 10/07/22 13:53 skin felt werid Opioids - Morphine Analogues Allergy Mild vomiting Verified 10/07/22 13:53 prochlorperazine Allergy Mild vomiting Verified 10/07/22 13:53 [From Compazine] nickel Allergy Verified 10/07/22 13:53 PFS PFS Medical History (Updated 10/12/22 @ 12:10 by Constanza Jones APRN) Anxiety COVID-19 Crohn disease Depression Endometriosis History of anemia Hydrosalpinx Migraine depression Tubal ligation evaluation Surgical History (Updated 10/12/22 @ 11:59 by Brie Wray RN) History of bowel resection History of section History of cholecystectomy Previous section Social History (Updated 10/12/22 @ 11:59 by Brie Wray RN) Smoking Status: Never smoker alcohol intake: never substance use type: denies use current occupational status: unemployed Travel in the last 8 weeks: None household members: spouse housing: house current occupational exposures/hazard
[2022-10-12 12:09] LABS: UTC Influenza A Antigen Negative (Negative); UTC Influenza B Antigen Negative (Negative); UTC Strep Screen (Rapid) Negative (Negative)
[2022-10-12 12:10] VITALS: BP 121/67; PULSE 102; RESP 19; TEMP 36.8; O2SAT 100
== END 2022-10-12 12:14 | disposition home or self-care (01) ==
PROVIDERS: Emergency Provider Nurse Practitioner; PCP Internal Medicine Adolescent Medicine
DX: J02.9 Acute pharyngitis, unspecified (principal); R50.9 Fever, unspecified; R05.9 Cough, unspecified; M79.10 Myalgia, unspecified site; Z86.16 Personal history of COVID-19; Z20.822 Contact with and (suspected) exposure to COVID-19; R09.81 Nasal congestion; D64.9 Anemia, unspecified; G43.909 Migraine, unspecified, not intractable, without status migrainosus; N70.11 Chronic salpingitis; K50.90 Crohn's disease, unspecified, without complications; N80.9 Endometriosis, unspecified; F32.A Depression, unspecified; F41.9 Anxiety disorder, unspecified; Z79.899 Other long term (current) drug therapy; Z88.5 Allergy status to narcotic agent; Z88.8 Allergy status to other drugs, medicaments and biological substances
CPT/HCPCS: 87581; 87632; 87798; 87804; 87880; 99213; C9803; G0463; U0003; U0005

== ENCOUNTER → 2023-02-24 11:18 | Outpatient (CLI) | payer OTHER, SELFPAY ==
[2023-02-24 11:38] LABS: Adenovirus F 40/41, stool Not Detected (NotDetected); Astrovirus Not Detected (NotDetected); Campylobacter Not Detected (NotDetected); Clostridium Difficile A/B, PCR Not Detected (NotDetected); Cryptosporidium Not Detected (NotDetected); Cyclospora Cayetanesis Not Detected (NotDetected); Entamoeba histolytica Not Detected (NotDetected); Enteroaggregative E coli Not Detected (NotDetected); Enteropathogenic E coli Not Detected (NotDetected); Enterotoxigenic E coli Not Detected (NotDetected); Giardia lamblia Not Detected (NotDetected); Norovirus Not Detected (NotDetected); Plesimonas Shigalloides, PCR Not Detected (NotDetected); Rotavirus A Not Detected (NotDetected); Salmonella, PCR Not Detected (NotDetected); Sapovirus Not Detected (NotDetected); Shiga-like toxin E coli Not Detected (NotDetected); Shigella Enterovasive E coli Not Detected (NotDetected); Vibrio Cholerae Not Detected (NotDetected); Vibrio, PCR Not Detected (NotDetected); Yersinia Entercolitica, PCR Not Detected (NotDetected)
== END ==
LOC: LAB 11:19
PROVIDERS: PCP Internal Medicine Adolescent Medicine; Visit Provider Internal Medicine Adolescent Medicine
DX: A09 Infectious gastroenteritis and colitis, unspecified (principal)
CPT/HCPCS: 87507

== ENCOUNTER → 2023-06-16 11:53 | Outpatient (CLI) | payer OTHER, SELFPAY ==
[2023-06-16 12:14] LABS: Basophils # 0.1 K/mm3 (0-0.2); Eosinophils # 0.2 K/mm3 (0.0-0.4); Eosinophils % 2.7 % (0.1-12.0); Hematocrit 37.6 % (37.0-47.0); Hemoglobin 12.2 g/dL (12.2-16.2); Lymphocytes # 2.2 K/mm3 (0.7-4.5); Lymphocytes % 34.1 % (10-50); Mean Corpuscular HGB Conc 32.4 g/dL (31.8-35.4); Mean Corpuscular Hemoglobin 29.1 pg (27.0-31.2); Mean Platelet Volume 10.1 fl (7.4-10.4); Monocytes # 0.4 K/mm3 (0.1-1.0); Monocytes % 6.6 % (1.7-9.3); Neutrophils # 3.6 K/mm3 (1.8-7.8); Neutrophils % 55.6 % (37.0-80.0); Platelet Count 230 K/mm3 (142-424); Red Blood Count 4.18 M/mm3 (4.20-5.40); Red Cell Distribution Width 12.7 % (11.5-17.5); White Blood Count 6.6 K/mm3 (4.8-10.8)
[2023-06-16 13:00] LABS: Alanine Aminotransferase 22 U/L (12-78); Albumin Level 4.1 g/dl (3.5-5.0); Albumin/Globulin Ratio 1.5 (1.1-1.8); Alkaline Phosphatase 70 U/L (38-126); Anion Gap 10.4 mEq/L (5-15); Aspartate Amino Transferase 27 U/L (14-36); Bilirubin,Total 0.4 mg/dl (0.2-1.3); Blood Urea Nitrogen 8 mg/dl (7-17); Carbon Dioxide 27 mmol/L (22.0-30.0); Chloride 107 mmol/L (98-107); Chol/HDL Ratio 1.9 (1-3.5); Cholesterol 126 mg/dl (140-200); Estimated Glomerular Filt Rate 115 ml/min (>60); GFR (African American) 139 ML/MIN (>60); Globulin 2.8 g/dL (1.3-3.2); Glucose 81 mg/dl (74-100); HDL Cholesterol 65 mg/dl (40-60); Potassium 4.4 mmoL/L (3.5-5.1); Sodium 140 mmol/L (136-145); Total Protein,Serum 6.9 g/dl (6.3-8.2); Triglycerides 54 mg/dl (30-150); VLDL Cholesterol 11 mg/dL (0-40)
[2023-06-16 13:11] LABS: Direct LDL Cholesterol 46.04 mg/dL (100-129)
[2023-06-16 13:20] LABS: 25-OH Vitamin D, Total 38.9 ng/mL (30-100)
[2023-06-16 13:21] LABS: Free Thyroxine Index 2.1 ug/dL (5.93-13.13); T4 (Thyroxine) 6.5 ug/dl (5.53-11.0); Triiodothryronine (T3) Uptake 33 % (23.5-40.5)
[2023-06-16 13:34] LABS: Thyroid Stimulating Hormone 0.87 uIU/mL (0.465-4.68)
[2023-06-16 13:55] LABS: Vitamin B12 > 1000 pg/mL (239-931)
== END ==
LOC: LAB 11:54
PROVIDERS: PCP Internal Medicine Adolescent Medicine; Visit Provider Internal Medicine Adolescent Medicine
DX: Z00.00 Encounter for general adult medical examination without abnormal findings (principal); G43.109 Migraine with aura, not intractable, without status migrainosus; R63.5 Abnormal weight gain; R53.81 Other malaise; R53.83 Other fatigue
CPT/HCPCS: 36415; 80053; 80061; 82306; 82607; 83036; 84436; 84443; 84479; 85025

== ENCOUNTER → 2023-06-17 13:40 | Outpatient (CLI) | payer OTHER, SELFPAY ==
--- NOTE | 2023-06-17 13:47 | CT_ITS ---
FINAL REPORT TECHNIQUE: Axial images were obtained from the lung apex to the mid abdomen by computed tomography. Coronal reformatted images were obtained. This study was performed with techniques to keep radiation doses as low as reasonably achievable, (ALARA). Individualized dose reduction techniques using automated exposure control or adjustment of mA and/or kV according to the patient''s size were employed. CLINICAL HISTORY: LEFT LOWER LOBE PULMONARY NODULE COMPARISON: 05/21/2020 CT abdomen and pelvis FINDINGS: There is no axillary adenopathy. There is no hilar or mediastinal adenopathy. Heart size is normal. There is no pericardial or pleural effusion. Limited images of the upper abdomen are unremarkable. Left lower lobe nodule measuring 10 mm was 9 mm. It is centrally calcified and consistent with granuloma. No other mass or nodule identified. IMPRESSION: Left lower lobe nodule consistent with granuloma. No other mass or nodule identified. Reviewed, Interpreted and Dictated by Brando Reyes III, MD Transcribed by Wanda Bynum Authenticated and . [facility]
== END ==
PROVIDERS: PCP Internal Medicine Adolescent Medicine; Visit Provider Nurse Practitioner Family
DX: R91.1 Solitary pulmonary nodule (principal)
CPT/HCPCS: 71250

== ENCOUNTER → 2023-08-24 12:36 | Outpatient (CLI) | payer OTHER, SELFPAY ==
[2023-08-24 15:41] LABS: HCG,Quantitative 22627 mIU/ml (0-5.42)
[2023-08-26 13:20] LABS: Progesterone 25.7 ng/mL (.)
== END ==
PROVIDERS: PCP Internal Medicine Adolescent Medicine; Visit Provider Obstetrics & Gynecology
DX: Z34.91 Encounter for supervision of normal pregnancy, unspecified, first trimester (principal); Z3A.01 Less than 8 weeks gestation of pregnancy
CPT/HCPCS: 36415; 84144; 84702

== ENCOUNTER → 2023-08-25 07:27 | Outpatient (CLI) | payer OTHER, SELFPAY | PROVIDERS: PCP Internal Medicine Adolescent Medicine; Visit Provider Obstetrics & Gynecology | DX: Z34.91 Encounter for supervision of normal pregnancy, unspecified, first trimester (principal); Z3A.01 Less than 8 weeks gestation of pregnancy | CPT/HCPCS: 87086 ==

== ENCOUNTER → 2023-10-13 08:29 | Outpatient (CLI) | payer OTHER, SELFPAY ==
[2023-10-13 09:23] LABS: Basophils % 0.3 % (0.1-2.0); Eosinophils % 0.5 % (0.1-12.0); Hematocrit 35.2 % (37.0-47.0); Hemoglobin 11.6 g/dL (12.2-16.2); Lymphocytes # 1.7 K/mm3 (0.7-4.5); Lymphocytes % 19.2 % (10-50); Mean Corpuscular HGB Conc 32.9 g/dL (31.8-35.4); Mean Corpuscular Hemoglobin 26.3 pg (27.0-31.2); Mean Platelet Volume 9.4 fl (7.4-10.4); Monocytes # 0.6 K/mm3 (0.1-1.0); Monocytes % 6.4 % (1.7-9.3); Neutrophils # 6.6 K/mm3 (1.8-7.8); Neutrophils % 73.7 % (37.0-80.0); Platelet Count 241 K/mm3 (142-424); Red Blood Count 4.41 M/mm3 (4.20-5.40); Red Cell Distribution Width 15.4 % (11.5-17.5)
[2023-10-14 09:13] LABS: HIV Screen 4th Generation wRfx Non Reactive (Non Reactive); Rubella Antibodies, IgG 1.68 index (Immune >0.99)
[2023-10-14 13:43] LABS: Rapid Plasma Reagin Ab Titer Non Reactive titer (NonRea<1:1)
[2023-10-19 21:19] LABS: Hepatitis C Antibody Non Reactive
[2023-10-19 21:20] LABS: Hepatitis B Surface Antigen Negative
== END ==
LOC: LAB 08:30
PROVIDERS: PCP Internal Medicine Adolescent Medicine; Visit Provider Obstetrics & Gynecology
DX: Z34.92 Encounter for supervision of normal pregnancy, unspecified, second trimester (principal); Z3A.13 13 weeks gestation of pregnancy
CPT/HCPCS: 36415; 85025; 86593; 86703; 86762; 86850; 87340; 87380; G0432

== ENCOUNTER 2023-11-02 16:18 | Emergency (ER) | payer OTHER, SELFPAY ==
[2023-11-02 16:18] VITALS: BP 120/73; PULSE 109; RESP 18; TEMP 36.9; O2SAT 98; BMI 25.9
--- NOTE | 2023-11-02 17:04 | PC.NURSE ---
F[facility] 157
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
[2023-11-02 17:16] VITALS: BP 120/78; PULSE 96; RESP 18; TEMP 36.8; O2SAT 98
[2023-11-02 17:16] LABS: Basophils % 0.4 % (0.1-2.0); Eosinophils # 0.1 K/mm3 (0.0-0.4); Eosinophils % 0.5 % (0.1-12.0); Hematocrit 33.9 % (37.0-47.0); Hemoglobin 11.4 g/dL (12.2-16.2); Lymphocytes # 1.6 K/mm3 (0.7-4.5); Lymphocytes % 15.2 % (10-50); Mean Corpuscular HGB Conc 33.7 g/dL (31.8-35.4); Mean Corpuscular Hemoglobin 26.7 pg (27.0-31.2); Mean Corpuscular Volume 79.3 fl (81-99); Mean Platelet Volume 8.8 fl (7.4-10.4); Monocytes # 0.6 K/mm3 (0.1-1.0); Monocytes % 5.7 % (1.7-9.3); Neutrophils # 8.1 K/mm3 (1.8-7.8); Neutrophils % 78.3 % (37.0-80.0); Platelet Count 250 K/mm3 (142-424); Red Blood Count 4.28 M/mm3 (4.20-5.40); Red Cell Distribution Width 15.2 % (11.5-17.5); White Blood Count 10.3 K/mm3 (4.8-10.8)
[2023-11-02 17:18] LABS: Chloride 102 mmol/L (98-107); Sodium 134 mmol/L (136-145)
[2023-11-02 17:20] LABS: Alanine Aminotransferase 20 U/L (12-78); Aspartate Amino Transferase 26 U/L (14-36); Blood Urea Nitrogen 11 mg/dl (7-17); Creatinine Clearance Estimated 184 mL/min (50-200); Estimated Glomerular Filt Rate 142 ml/min (>60); GFR (African American) 172 ML/MIN (>60)
[2023-11-02 17:21] LABS: Albumin Level 4.2 g/dl (3.5-5.0); Albumin/Globulin Ratio 1.3 (1.1-1.8); Alkaline Phosphatase 75 U/L (38-126); Bilirubin,Total 0.3 mg/dl (0.2-1.3); Calcium 8.9 mg/dl (8.4-10.2); Carbon Dioxide 22 mmol/L (22.0-30.0); Globulin 3.3 g/dL (1.3-3.2); Glucose 95 mg/dl (74-100); Total Protein,Serum 7.5 g/dl (6.3-8.2)
--- NOTE | 2023-11-02 17:26 | PC.NURSE ---
PT NOW COMPLAINING OF A MIGRAINE H/A AND WOULD LIKE SOMETHING FOR IT
--- NOTE | 2023-11-02 18:15 | PC.NURSE ---
Pt reports to be felling much better, requesting to leave prior to fluids being completed. MD reports she is d/c if she is feeling better. VSS. She ambulated to the bathroom no issues.
== END 2023-11-02 18:20 | disposition home or self-care (01) ==
PROVIDERS: Emergency Provider Emergency Medicine; PCP Internal Medicine Adolescent Medicine
DX: O9A.212 Injury, poisoning and certain other consequences of external causes complicating pregnancy, second trimester (principal); R10.9 Unspecified abdominal pain; F41.9 Anxiety disorder, unspecified; Z3A.16 16 weeks gestation of pregnancy; V49.40XA Driver injured in collision with unspecified motor vehicles in traffic accident, initial encounter
CPT/HCPCS: 80053; 85025; 86850; 96361; 96374; 96375; 99284; J0131

== ENCOUNTER 2023-12-03 07:49 | Outpatient (CLI) | payer OTHER, SELFPAY ==
--- NOTE | 2023-12-03 07:50 | US_ITS ---
PROCEDURE: US OB /MATERNAL DETAIL CLINICAL INDICATION: 20 week anatomy scan COMPARISON: US from 11/02/2023 FINDINGS: Transabdominal sonographic images of the pelvis were obtained. From her established due date she is 20 weeks 2 days. Single viable intrauterine gestation. Breech position. Placenta: Posteriorplacenta grade 1. There is an average amount of fluid. The cervix appears satisfactory. Closed and measuring 3.06 cm in length. Complete survey performed and was unremarkable on the submitted images as in PACS. No discrete anomalies identified on survey imaging by technologist. Active fetus. Three-vessel cord with satisfactory umbilical cord insertion. 4- chamber heart noted. Situs, aortic arch, LVOT, RVOT, three-vessel view appear normal. Survey of brain & ventricles Unremarkable. Cerebellum, thalamus, choroid plexus, cisterna magna appear normal. Face and neck survey unremarkable. Profile, nasion, lips and nose appeared normal. Diaphragm and chest views unremarkable. Abdomen: Both kidneys noted and unremarkable. There is mild bilateral renal pelvis dilation. 3.4 mm and 2.9 mm. Stomach and bladder noted and satisfactory. Spine: Survey of the spine satisfactory with no anomalies identified nor imaged. Cervical, thoracic, lower spine appear normal. Both arms and legs noted. Amniotic Fluid: Adequate. Measurements: Average ultrasound age 20weeks 3days. Estimated due date by ultrasound age 0604/18/2024. Estimated weight 365g BPD = 19weeks 6days HC = 20weeks AC = 20weeks 3days FL = 21weeks 2days Growth Percentile= 64 Heart Rate = 156bpm Cerebellum = 20weeks 4days Humerus = 21weeks 1day HC/AC is 1.15 FL/BPD is 0.77 FL/AC is 0.23 IMPRESSION: 1. Viable fetus in the breech presentation with a posterior placenta grade 1. 2. The fluid is within normal limits. 3. Anatomical scan appears normal. 4. There is mild bilateral renal pelvis dilation and suggested follow-up ultrasound at 28 weeks. 5. biometry is consistent with a dates. Dictated by: Castillo Gardner MD 12/03/2023 14:42 Castillo Gardner MD in [place] 12/03/2023 14:42
== END 2023-12-03 23:59 ==
LOC: RAD 07:50
PROVIDERS: PCP Internal Medicine Adolescent Medicine; Visit Provider Obstetrics & Gynecology
DX: Z34.92 Encounter for supervision of normal pregnancy, unspecified, second trimester (principal); Z3A.20 20 weeks gestation of pregnancy
CPT/HCPCS: 76811

== ENCOUNTER 2024-01-28 12:52 | Outpatient (CLI) | payer OTHER, SELFPAY ==
--- NOTE | 2024-01-28 12:52 | US_ITS ---
PROCEDURE: US OB LIMITED POSITION CLINICAL INDICATION: evaluate kidneys/ renal pelvic dilation COMPARISON: US US OB /MATERNAL DETAIL from 12/03/2023 FINDINGS: Transabdominal sonographic images of the pelvis were obtained. The following parameters are obtained: From her established due date she is 28weeks 2days Viable fetus in the cephalic presentation with a posterior placenta grade 1. The cervix measures 2.9 cm. heart rate: 130bpm bpm. BPD: 28weeks 5days, 49 percentile. HC: 28weeks 5days, 27th percentile. AC: 28weeks 4days, 49 percentile. FL: 29weeks 2days, 62 percentile. HC/AC: 1.08 FL/BPD: 0.78 FL/AC: 0.23 Growth percentile: Amniotic fluid index: 11.49cm MVP 3.88 cm. No obvious anomalies evident. stomach, bladder, kidneys, three-vessel cord, four chamber heart appear normal. IMPRESSION: 1. Viable fetus in cephalic presentation with a posterior placenta grade 1. 2. The fluid is within normal limits with an amniotic fluid index of 11.9 cm, MVP 3.8 cm. 3. Limited anatomical scan appears normal. 4. Previously described renal pelvis dilation has resolved. 5. There has been good interval growth. Dictated by: Castillo Gardner MD 01/28/2024 17:11 Castillo Gardner MD in [facility] 01/28/2024 17:11
[2024-01-28 14:18] LABS: Basophils # 0.1 K/mm3 (0-0.2); Basophils % 0.7 % (0.1-2.0); Eosinophils # 0.1 K/mm3 (0.0-0.4); Eosinophils % 0.6 % (0.1-12.0); Hemoglobin 11.9 g/dL (12.2-16.2); Lymphocytes # 1.9 K/mm3 (0.7-4.5); Lymphocytes % 20.2 % (10-50); Mean Corpuscular HGB Conc 32.2 g/dL (31.8-35.4); Mean Corpuscular Hemoglobin 27.8 pg (27.0-31.2); Mean Corpuscular Volume 86.4 fl (81-99); Monocytes # 0.6 K/mm3 (0.1-1.0); Monocytes % 6.5 % (1.7-9.3); Neutrophils # 6.7 K/mm3 (1.8-7.8); Platelet Count 253 K/mm3 (142-424); Red Blood Count 4.29 M/mm3 (4.20-5.40); Red Cell Distribution Width 20.2 % (11.5-17.5); White Blood Count 9.4 K/mm3 (4.8-10.8)
[2024-01-28 15:14] LABS: Alanine Aminotransferase 15 U/L (12-78); Albumin Level 3.8 g/dl (3.5-5.0); Albumin/Globulin Ratio 1.3 (1.1-1.8); Alkaline Phosphatase 92 U/L (38-126); Anion Gap 11.4 mEq/L (5-15); Aspartate Amino Transferase 22 U/L (14-36); Bilirubin,Total 0.2 mg/dl (0.2-1.3); Blood Urea Nitrogen 6 mg/dl (7-17); Carbon Dioxide 23 mmol/L (22.0-30.0); Chloride 104 mmol/L (98-107); Estimated Glomerular Filt Rate 141 ml/min (>60); GFR (African American) 171 ML/MIN (>60); Globulin 2.9 g/dL (1.3-3.2); Glucose 84 mg/dl (74-100); Potassium 4.4 mmoL/L (3.5-5.1); Sodium 134 mmol/L (136-145); Total Protein,Serum 6.7 g/dl (6.3-8.2)
[2024-01-28 16:20] LABS: Vitamin B12 896 pg/mL (239-931)
[2024-01-28 16:29] LABS: Folate > 20.00 ng/mL
[2024-01-28 16:43] LABS: Iron 176 ug/dL (37-170)
[2024-01-28 16:52] LABS: Total Iron Binding Capacity 533 ug/dL (265-497)
[2024-01-28 17:19] LABS: Ferritin 5.84 ng/ml (6.24-137)
[2024-01-31 23:25] LABS: Vitamin B6 13.3 ug/L (3.4-65.2)
[2024-02-01 20:10] LABS: Zinc 50 ug/dL (44-115)
[2024-02-02 22:14] LABS: Vitamin E Alpha Tocopherol 12.9 mg/L (5.9-19.4); Vitamin E Gamma Tocopherol 1.1 mg/L (0.7-4.9)
[2024-02-10 08:19] LABS: Methylmalonic Acid 116 nmol/L (0-378)
== END 2024-01-28 23:59 ==
LOC: RAD 12:52
PROVIDERS: PCP Internal Medicine Adolescent Medicine; Visit Provider Obstetrics & Gynecology
DX: O26.892 Other specified pregnancy related conditions, second trimester (principal); Z3A.28 28 weeks gestation of pregnancy; N28.89 Other specified disorders of kidney and ureter
CPT/HCPCS: 76815; 80053; 82525; 82607; 82728; 82746; 83540; 83550; 83921; 84207; 84446; 84630; 85025

== ENCOUNTER 2024-02-02 07:56 | Outpatient (CLI) | payer OTHER, SELFPAY ==
[2024-02-02 08:32] LABS: Basophils # 0.2 K/mm3 (0-0.2); Eosinophils # 0.1 K/mm3 (0.0-0.4); Hematocrit 38.6 % (37.0-47.0); Hemoglobin 12.5 g/dL (12.2-16.2); Lymphocytes # 1.5 K/mm3 (0.7-4.5); Mean Corpuscular HGB Conc 32.4 g/dL (31.8-35.4); Mean Corpuscular Hemoglobin 28.2 pg (27.0-31.2); Mean Corpuscular Volume 87.1 fl (81-99); Mean Platelet Volume 8.6 fl (7.4-10.4); Monocytes # 0.7 K/mm3 (0.1-1.0); Monocytes % 8.1 % (1.7-9.3); Neutrophils # 5.7 K/mm3 (1.8-7.8); Platelet Count 231 K/mm3 (142-424); Red Blood Count 4.44 M/mm3 (4.20-5.40); Red Cell Distribution Width 20.3 % (11.5-17.5)
[2024-02-02 08:49] LABS: Glucose,Fasting 77 mg/dl (74-100)
[2024-02-02 10:30] LABS: Glucose 1 Hour 146 mg/dL (74-100)
== END 2024-02-02 23:59 ==
PROVIDERS: PCP Internal Medicine Adolescent Medicine; Visit Provider Obstetrics & Gynecology
DX: O26.893 Other specified pregnancy related conditions, third trimester (principal); Z3A.29 29 weeks gestation of pregnancy
CPT/HCPCS: 36415; 82951; 85025

== ENCOUNTER 2024-02-04 07:46 | Outpatient (CLI) | payer OTHER, SELFPAY ==
[2024-02-04 09:12] LABS: Glucose,Fasting 78 mg/dl (74-100)
[2024-02-04 11:08] LABS: Glucose 1 Hour 154 mg/dL (74-100)
[2024-02-04 15:21] LABS: Glucose 2 Hour 181 mg/dL (74-100); Glucose 3 Hour 133 mg/dL (74-100)
== END 2024-02-04 23:59 ==
LOC: LAB 07:46
PROVIDERS: PCP Internal Medicine Adolescent Medicine; Visit Provider Obstetrics & Gynecology
DX: O26.893 Other specified pregnancy related conditions, third trimester (principal); Z3A.29 29 weeks gestation of pregnancy
CPT/HCPCS: 36415; 82951

== ENCOUNTER 2024-02-07 23:29 | Outpatient (CLI) | payer OTHER, SELFPAY ==
--- NOTE | 2024-02-07 23:52 | EXP.PN ---
Subjective *Date: 02/08/24 *Time: 10:51 Interval history: Carol is a 34-year-old -0-2-1 at 29 weeks and 6 days gestation who presented to labor and delivery triage secondary to persistent nausea and vomiting. States that she was [facility] earlier today and felt fine but overnight developed nausea and vomiting. She is having some abdominal cramping and tenderness which she is attributing to persistent vomiting. States that she is feeling the baby move well. Denies any leakage of fluid or vaginal bleeding. Denies any pelvic pressure. Upon chart review her has been relatively uncomplicated. It does look like she has had persistent nausea and vomiting throughout , some abdominal cramping, and possible dehydration/round ligament pain. Anatomy scan revealed mild renal pelvis dilation however follow-up scan noted that it had completely resolved. She has received her Tdap vaccine with this . Obstetrical history is significant for 1 section and 2 SABs. She is having a little girl, Magno. Exam Data for Last 24 hours Narrative: General: patient is alert oriented in no acute distress and responds appropriately to questions. Appears to be in minimal pain. Sitting up in the bed and doing well. Patient's father at bedside HEENT: NCAT, EOMI, dry mucous membranes, neck supple with full ROM Cardiovascular: RRR +S1/S2, no murmurs or rubs Pulmonary: Clear to auscultation bilaterally, nonlabored breathing, symmetric chest rise Abdominal: Fundus appropriate for gestational age, firm, and tenderness generalized and diffuse but not pain significantly out of proportion to exam. Extremities: trace edema, no tenderness or cyanosis noted Skin: Normal turgor, intact, warm. Negative for erythema, pallor, petechia, or lesions Neurologic: Negative for sensory or motor deficit Psychiatric: Normal affect, normal thought process, good judgment and insight, no depression or anxious mood appreciated. Constitutional Constitutional: no acute distress *Routine HEENT Exam Head: Present normocephalic Eye: Present EOMI and PERRL ENT: Present mucous membranes moist *Routine Neck Exam Neck: Present supple; Absent lymphadenopathy *Routine Respiratory Exam Respiratory: Present CTA bilaterally *Routine Cardiovascular Exam Cardiovascular: Present RRR *Routine Abdominal Exam Abdominal: Present soft, normoactive bowel sounds and tenderness (Generalized and diffuse); Absent rebound, guarding, firm or rigid *Routine Extremities Exam Extremities: Absent cyanosis, clubbing or edema *Routine Skin Exam Skin: Present warm; Absent rash *Routine Neurological Exam Neurological: Present alert and oriented X3 Assessment and Plan *Assessment and plan (1) Nausea and vomiting during : Status: Acute Category: Medical Code(s): O21.9 - Vomiting of , unspecified Plan We will check her electrolyte status with a CMP We will screen for a leukocytosis with a CBC 1 L LR bolus ordered 4 mg IV Zofran ordered Discussed with the patient ordering promethazine however given her allergy to Compazine and Reglan we will hold on this for now If not resolved with above measures we will consider an FFN and cervical exam Patient has a follow-up visit in approximately [address] Sr. If this is persistent encourage patient to call the office to be seen sooner. -Patient noted irregular mild uterine cramping and requested toco lysis. 1 dose of terbutaline given -Patient requested an additional 500 mL for dehydration, bolus ordered -Patient requested flu and COVID screening, rapid swabs ordered. Respiratory swabs were negative. The patient felt much better after the terbutaline. She was discharged home with strict return precautions and close interval follow-up scheduled.
[2024-02-08] MEDS: LACTATED RINGERS 1000ML 1,000 ML 999 ML IV (00:05)
[2024-02-08] MEDS: ONDANSETRON 4MG/2ML VIAL 4 MG IV (00:05)
[2024-02-08 00:25] LABS: Basophils # 0.1 K/mm3 (0-0.2); Basophils % 0.9 % (0.1-2.0); Eosinophils # 0.2 K/mm3 (0.0-0.4); Eosinophils % 1.2 % (0.1-12.0); Hematocrit 41.6 % (37.0-47.0); Hemoglobin 13.5 g/dL (12.2-16.2); Lymphocytes # 0.4 K/mm3 (0.7-4.5); Lymphocytes % 3.5 % (10-50); Mean Corpuscular HGB Conc 32.5 g/dL (31.8-35.4); Mean Corpuscular Hemoglobin 28.3 pg (27.0-31.2); Mean Corpuscular Volume 87.1 fl (81-99); Mean Platelet Volume 8.6 fl (7.4-10.4); Monocytes # 0.3 K/mm3 (0.1-1.0); Monocytes % 2.7 % (1.7-9.3); Neutrophils # 11.4 K/mm3 (1.8-7.8); Neutrophils % 91.6 % (37.0-80.0); Platelet Count 243 K/mm3 (142-424); Red Blood Count 4.78 M/mm3 (4.20-5.40); Red Cell Distribution Width 20.4 % (11.5-17.5); White Blood Count 12.4 K/mm3 (4.8-10.8)
[2024-02-08 00:27] LABS: MANUAL DIFFERENTIAL MANUAL DIFFERENTIAL (MANUAL DIFF)
[2024-02-08 00:28] LABS: Chloride 112 mmol/L (98-107); Potassium 3.6 mmoL/L (3.5-5.1); Sodium 137 mmol/L (136-145)
[2024-02-08 00:30] LABS: Alanine Aminotransferase 20 U/L (12-78); Aspartate Amino Transferase 27 U/L (14-36); Blood Urea Nitrogen 9 mg/dl (7-17); Estimated Glomerular Filt Rate 141 ml/min (>60); GFR (African American) 171 ML/MIN (>60)
[2024-02-08 00:31] LABS: Albumin Level 3.8 g/dl (3.5-5.0); Albumin/Globulin Ratio 1.2 (1.1-1.8); Alkaline Phosphatase 118 U/L (38-126); Anion Gap 11.6 mEq/L (5-15); Bilirubin,Total 0.3 mg/dl (0.2-1.3); Calcium 8.4 mg/dl (8.4-10.2); Carbon Dioxide 17 mmol/L (22.0-30.0); Globulin 3.2 g/dL (1.3-3.2); Glucose 113 mg/dl (74-100)
[2024-02-08 00:51] LABS: Lymphocytes % 5 % (10-50); Monocytes % 2 % (2-9); Neutrophils % 93 % (42-76); Platelet Estimate Normal; RBC Morphology Normal; Total Cells Counted 100
[2024-02-08] MEDS: TERBUTALINE SULFATE 1MG/ML VIAL 0.25 MG SQ (01:15)
[2024-02-08 01:18] VITALS: BP 107/65; PULSE 96; RESP 18; TEMP 37.2; O2SAT 94; BMI 27.6
[2024-02-08] MEDS: LACTATED RINGERS 1000ML 500 ML 999 ML IV (01:51)
[2024-02-08 02:18] LABS: Coronavirus 19, PCR Not Detected (NotDetected); Influenza A, PCR Not Detected (NotDetected); Influenza B, PCR Not Detected (NotDetected)
== END 2024-02-08 02:45 | disposition home or self-care (01) ==
LOC: OBOUT 23:30 → OB 23:31
PROVIDERS: PCP Internal Medicine Adolescent Medicine; Visit Provider Obstetrics & Gynecology
DX: O26.893 Other specified pregnancy related conditions, third trimester (principal); Z3A.29 29 weeks gestation of pregnancy; O21.9 Vomiting of pregnancy, unspecified
CPT/HCPCS: 80053; 85007; 85025; 87636; G0463; J2405

== ENCOUNTER 2024-02-22 09:50 | Outpatient (CLI) | payer OTHER, SELFPAY ==
[2024-02-22] MEDS: LACTATED RINGERS 1000ML 1,000 ML 999 ML IV (10:36)
[2024-02-22 10:46] VITALS: BP 105/68; PULSE 67; RESP 17; TEMP 36.7; O2SAT 100; BMI 28.4
== END 2024-02-22 11:49 | disposition home or self-care (01) ==
LOC: OBOUT 09:51 → OB 09:52
PROVIDERS: PCP Internal Medicine Adolescent Medicine; Visit Provider Obstetrics & Gynecology
DX: O26.893 Other specified pregnancy related conditions, third trimester (principal); E86.0 Dehydration; Z3A.31 31 weeks gestation of pregnancy
CPT/HCPCS: G0463

== ENCOUNTER 2024-03-17 15:46 | Outpatient (CLI) | payer OTHER, SELFPAY ==
[2024-03-17 15:56] VITALS: BMI 29.7
[2024-03-17 16:10] VITALS: BP 122/66; PULSE 98; RESP 16; TEMP 36.9; O2SAT 97; BMI 29.7
[2024-03-17 16:34] LABS: Fetal Membrane Rupture (Rapid) Negative (Negative)
== END 2024-03-17 16:45 | disposition home or self-care (01) ==
LOC: OBOUT 15:47 → OB 15:48
PROVIDERS: PCP Internal Medicine Adolescent Medicine; Visit Provider Obstetrics & Gynecology
DX: O26.893 Other specified pregnancy related conditions, third trimester (principal); Z3A.35 35 weeks gestation of pregnancy
CPT/HCPCS: 84112; G0463

== ENCOUNTER 2024-03-28 16:58 | Outpatient (CLI) | payer OTHER, SELFPAY | END 2024-03-28 23:59 | disposition home or self-care (01) | LOC: LAB.DROPOF 16:59 | PROVIDERS: PCP Nurse Practitioner Obstetrics & Gynecology; Visit Provider Nurse Practitioner Obstetrics & Gynecology | DX: O26.893 Other specified pregnancy related conditions, third trimester (principal); Z3A.36 36 weeks gestation of pregnancy | CPT/HCPCS: 86403 ==

== ENCOUNTER 2024-04-06 12:47 | Outpatient (CLI) | payer OTHER, SELFPAY ==
[2024-04-06 13:14] VITALS: BP 113/71; PULSE 110; RESP 18; TEMP 36.8; O2SAT 96; BMI 29.7
[2024-04-06 13:24] LABS: Microscopic, Urine URINE MICROSCOPIC (MICROSCOPIC)
[2024-04-06 13:38] LABS: Benzodiazepines Screen,Urine Negative ng/ml (<200)
[2024-04-06 13:39] LABS: Amphetamine/Metha Screen,Urine Negative ng/ml (<1000); Barbiturates Screen,Urine Negative ng/ml (<200)
[2024-04-06 13:40] LABS: Cannabinoid Screen,Urine Negative ng/ml (<50)
[2024-04-06 13:41] LABS: Cocaine Screen,Urine Negative ng/ml (<300); Methadone Screen,Urine Negative ng/ml (<300)
[2024-04-06 13:42] LABS: Opiate Screen,Urine Negative ng/ml (<300); Phencyclidine Screen,Urine Negative ng/ml (<25)
[2024-04-06 14:07] LABS: Bilirubin,Urine Negative (Negative); Blood, Urine Negative (Negative); Color,Urine YELLOW (Yellow); Glucose,Urine (UA) Negative (Negative); Ketones,Urine 1+ (Negative); Leukocyte Esterase,Urine Negative (Negative); Nitrate,Urine Negative (Negative); Protein,Urine Negative (Negative); Urobilinogen,Urine 0.2 EU/dl (0.2)
[2024-04-06 15:22] LABS: Bacteria,Urine 2+ /lpf; Squamous Epithelial Cell,Urine 50-100 #/hpf (0-5)
[2024-04-06 15:27] LABS: RBC,Urine Occasional #/hpf (0-3)
[2024-04-06 15:33] LABS: Appearance,Urine Cloudy (Clear)
== END 2024-04-06 13:42 | disposition home or self-care (01) ==
LOC: OBOUT 12:48 → OB 12:49
PROVIDERS: Obstetrics & Gynecology; PCP Internal Medicine Adolescent Medicine; Visit Provider Obstetrics & Gynecology
DX: O60.03 Preterm labor without delivery, third trimester (principal); Z3A.38 38 weeks gestation of pregnancy
CPT/HCPCS: 80307; 81001; G0463

== ENCOUNTER 2024-04-10 14:51 | Outpatient (CLI) | payer OTHER, SELFPAY ==
[2024-04-10 14:58] VITALS: BMI 29.7
[2024-04-10 15:08] LABS: Microscopic, Urine URINE MICROSCOPIC (MICROSCOPIC)
[2024-04-10 15:12] VITALS: BP 112/73; PULSE 108; RESP 18; TEMP 36.9; O2SAT 96; BMI 29.5
[2024-04-10 15:31] LABS: Appearance,Urine CLEAR (Clear); Bilirubin,Urine Negative (Negative); Blood, Urine Negative (Negative); Color,Urine YELLOW (Yellow); Glucose,Urine (UA) Negative (Negative); Ketones,Urine Negative (Negative); Leukocyte Esterase,Urine Negative (Negative); Nitrate,Urine Negative (Negative); PH,Urine 7.5 (5.0-8.5); Protein,Urine Negative (Negative); Urobilinogen,Urine 0.2 EU/dl (0.2)
[2024-04-10 15:42] LABS: Barbiturates Screen,Urine Negative ng/ml (<200)
[2024-04-10 15:43] LABS: Amphetamine/Metha Screen,Urine Negative ng/ml (<1000); Benzodiazepines Screen,Urine Negative ng/ml (<200)
[2024-04-10 15:44] LABS: Cannabinoid Screen,Urine Negative ng/ml (<50)
[2024-04-10 15:45] LABS: Cocaine Screen,Urine Negative ng/ml (<300); Methadone Screen,Urine Negative ng/ml (<300)
[2024-04-10 15:46] LABS: Opiate Screen,Urine Negative ng/ml (<300)
[2024-04-10 15:47] LABS: Phencyclidine Screen,Urine Negative ng/ml (<25)
[2024-04-10] MEDS: LACTATED RINGERS 1000ML 1,000 ML 999 ML IV (15:59)
[2024-04-10 16:02] LABS: Bacteria,Urine Trace /lpf; WBC,Urine Occasional #/hpf (0-3)
[2024-04-10] MEDS: OXYCODONE 5MG IMMEDIATE RELEASE TABLET 5 MG PO (16:13)
== END 2024-04-10 17:20 | disposition home or self-care (01) ==
LOC: OBOUT 14:52 → OB 14:54
PROVIDERS: PCP Internal Medicine Adolescent Medicine; Visit Provider Nurse Practitioner Obstetrics & Gynecology
DX: O60.03 Preterm labor without delivery, third trimester (principal); Z3A.38 38 weeks gestation of pregnancy
CPT/HCPCS: 80307; 81001; G0463; J7120

== ENCOUNTER 2024-04-14 05:02 | Inpatient (IN) | payer OTHER, SELFPAY ==
[2024-04-14] VITALS (8 sets, daily range): BP systolic 106–123; BP diastolic 56–71; PULSE 60–103; RESP 16–18; TEMP 36.3–36.7; O2SAT 96–100; BMI 29.9
[2024-04-14] MEDS: LACTATED RINGERS 1000ML 1,000 ML 250 ML IV (05:45)
[2024-04-14 05:52] LABS: Basophils # 0.1 K/mm3 (0-0.2); Basophils % 1.2 % (0.1-2.0); Eosinophils # 0.2 K/mm3 (0.0-0.4); Eosinophils % 2.1 % (0.1-12.0); Hematocrit 35.2 % (37.0-47.0); Hemoglobin 11.6 g/dL (12.2-16.2); Lymphocytes % 27.8 % (10-50); Mean Corpuscular HGB Conc 32.9 g/dL (31.8-35.4); Mean Corpuscular Hemoglobin 28.5 pg (27.0-31.2); Mean Corpuscular Volume 86.8 fl (81-99); Mean Platelet Volume 9.7 fl (7.4-10.4); Monocytes # 0.5 K/mm3 (0.1-1.0); Monocytes % 6.5 % (1.7-9.3); Neutrophils # 4.4 K/mm3 (1.8-7.8); Neutrophils % 62.4 % (37.0-80.0); Platelet Count 234 K/mm3 (142-424); Red Blood Count 4.05 M/mm3 (4.20-5.40); Red Cell Distribution Width 17.3 % (11.5-17.5)
[2024-04-14 06:01] LABS: Alanine Aminotransferase 20 U/L (12-78); Albumin Level 3.6 g/dl (3.5-5.0); Albumin/Globulin Ratio 1.1 (1.1-1.8); Alkaline Phosphatase 191 U/L (38-126); Aspartate Amino Transferase 33 U/L (14-36); Bilirubin,Total 0.4 mg/dl (0.2-1.3); Blood Urea Nitrogen 4 mg/dl (7-17); Calcium 8.5 mg/dl (8.4-10.2); Carbon Dioxide 20 mmol/L (22.0-30.0); Chloride 106 mmol/L (98-107); Creatinine Clearance Estimated 211 mL/min (50-200); Estimated Glomerular Filt Rate 141 ml/min (>60); GFR (African American) 171 ML/MIN (>60); Globulin 3.2 g/dL (1.3-3.2); Glucose 75 mg/dl (74-100); Sodium 134 mmol/L (136-145); Total Protein,Serum 6.8 g/dl (6.3-8.2)
--- NOTE | 2024-04-14 07:10 | EXP.ANES.CKL ---
[facility] Disclaimer: The information contained in this section may have been updated after the patient was seen, as this information can be updated by other users. Medical History Crohn disease Diarrhea during History of depression Epigastric pain during , antepartum Depression affecting Tubal ligation evaluation Depression Anxiety History of anemia Migraine COVID-19 Hydrosalpinx left Endometriosis Surgical History History of cholecystectomy History of section History of bowel resection Family History Mother Diabetes Social History Smoking Status: Never smoker alcohol intake: never substance use type: denies use current occupational status: employed Travel in the last 8 weeks: None household members: spouse housing: house current occupational exposures/hazards: No caffeine: Yes [facility] Anesthesia Checklist Patient Identification Patient Identification: Arm Band, Family and Verbal (Name & ) Structural Data Admitted From: Inpatient (OB 274) Planned Operative Procedure/s: Repeat C-sxn Consent for Planned Operative Procedure(s) Verified: Yes Verified Documents: Surgical Consent and History and Physical NPO Status Verified Time NPO: 23:30 Chart Verification Results Verified: CBC, BMP and Chest Xray Additional verifications Patient : Yes Anesthesia Reactions: No Hx Blood Transfusions: No Blood Transfusion Reaction: No Cardiovascular Assessment Heart Sounds: S1 & S2 Pulse Rhythm: Irregular Peripheral Edema: Yes (2+ LEVI LE) Airway Assessment Mallampati Score:: Class II C-Spine Mobility Assessed: Yes (FROM) TMJ Mobility Assessed: Yes Dentition: Partials (Top Middle Left tooth partial) Neurological Assessment Level of Consciousness: Awake, Alert, Appropriate and Follows Commands Hx Seizures: No Numbness or tingling in extremities: No Anesthesia Plan Anesthesia Risk discussed: Yes Anesthesia Plan: Verified ASA Class: II Anesthesia Type: Spinal (w/LEVI TAP Block)
--- NOTE | 2024-04-14 07:22 | P.HP_ITS ---
OB - H&P: HPI Antepartum History of Present Illness Chief complaint: Scheduled repeat History of present illness: Mrs Carol Gaffney is a very pleasant 34 yo at 39w2d who presents to [facility] Labor and Delivery for scheduled repeat . She has had good care. History of x 1. History of Present Criteria for establishing EDC:: LMP confirmed by 1st trimester US care: good care Ultrasounds: normal mid trimester US Obstetrical complications: previous Medical complications: gastrointestinal (Crohns) Labs Blood type: O (+) positive Rubella: immune RPR/VDRL: nonreactive GBS status: negative [facility]AG: [facility] Disclaimer: The information contained in this section may have been updated after the patient was seen, as this information can be updated by other users. Medical History (Updated 04/14/24 @ 07:29 by Daphney Sr DO) 39 weeks gestation of Crohn disease Diarrhea during History of depression Epigastric pain during , antepartum Depression affecting Tubal ligation evaluation Depression Anxiety History of anemia Migraine COVID-19 Hydrosalpinx Endometriosis Surgical History History of cholecystectomy History of section History of bowel resection Family History Mother Diabetes Social History Smoking Status: Never smoker alcohol intake: never substance use type: denies use current occupational status: employed Travel in the last 8 weeks: None household members: spouse housing: house current occupational exposures/hazards: No caffeine: Yes Review of Systems Review of Systems Review of systems:: pertinent systems reviewed and negative unless documented below *Musculoskeletal Musculoskeletal: Reports back pain Meds Home Medications and Allergies Home Medications Medication Instructions Recorded Confirmed Type prenat.vits,andrew,oqy-fjyl-focfi 1 tab PO DAILY Supplement 10/01/20 04/14/24 History escitalopram oxalate 20 mg tablet 20 mg PO DAILY 09/08/23 04/14/24 History mecobalamin (vitamin B12) 500 mcg 500 mcg PO DAILY 09/23/23 04/14/24 History chewable tablet ascorbic acid (vitamin C) 1,000 mg 1 g PO Q6H 12/03/23 04/14/24 History capsule coenzyme Q10 200 mg/gram oral 200 mg PO DAILY 12/03/23 04/14/24 History powder (H2Q CoQ10) magnesium 250 mg tablet 250 mg PO DAILY 12/03/23 04/14/24 History pantoprazole 40 mg tablet,delayed 40 mg PO DAILY #30 tabs 01/04/24 04/14/24 Rx release (Protonix) New Prescriptions to Start Prescriptions: Allergies Allergy/AdvReac Type Severity Reaction Status Date / Time metoclopramide [From Reglan] Allergy Mild hyper, Verified 04/14/24 05:34 skin felt werid Opioids - Morphine Analogues Allergy Mild vomiting Verified 04/14/24 05:34 prochlorperazine Allergy Mild vomiting Verified 04/14/24 05:34 [From Compazine] nickel Allergy Verified 04/14/24 05:34 OB - H&P: Exam Physical Exam Vital signs: Temp Pulse Resp BP Pulse Ox O2 Del Method 98.1 F 60 16 115/67 96 Room Air 04/14/24 06:10 04/14/24 06:10 04/14/24 06:10 04/14/24 06:10 04/14/24 06:10 04/14/24 06:10 Constitutional no acute distress and cooperative Routine HEENT Exam Head: Present normocephalic and atraumatic Eye: Absent conjunctivae pink ENT: Present mucous membranes moist Routine Neck Exam Present full ROM Routine Respiratory Exam Present CTA bilaterally and normal respiratory effort Routine Cardiovascular Exam Present RRR Routine Abdominal Exam Present soft (Gravid); Absent tenderness Routine Rectal Exam Patient deferred: visual exam Routine Exam External: Present normal urethra appearance; Absent erythema, tenderness, lesions or lacerations Routine Extremities Exam Present full ROM; Absent edema or calf tenderness Routine Neurological Exam Present alert, moving all extremities and normal speech Routine Psychiatric Exam Present normal affect and cooperative OB - Results Labs Labs: Short CBC 04/14/24 Range/Units 05:45 WBC 7.0 (4.8-10.8) K/mm3 Hgb 11.6 L (12.2-16.2) g/dL Hct 35.2 L (37.0-47.0) % Plt Count 234 (142-424) K/mm3 BMP 04/14/24 05:45 Sodium 134 L Potassium 4.0 Chloride 106 Carbon Dioxide 20 L BUN 4 L Creatinine 0.50 L Glucose 75 Calcium 8.5 Liver Function 04/14/24 Range/Units 05:45 Total Bilirubin 0.4 (0.2-1.3) mg/dl AST 33 (14-36) U/L ALT 20 (12-78) U/L Alkaline Phosphatase 191 H (38-126) U/L Albumin 3.6 (3.5-5.0) g/dl OB - A/P Antepartum (1) 39 weeks gestation of : Status: Resolved (2) Previous section: Status: Acute (3) Depression affecting : Status: Acute (4) Crohn disease: Status: Acute (5) History of depression: Status: Acute Additional Plan Additional Information:: Admit to [facility] for scheduled repeat Reviewed risks, benefits and expectations. All questions addressed and answered. Consent form signed. Proceed with repeat
[2024-04-14] MEDS: CEFAZOLIN SODIUM 2 GM in 0.9 % SODIUM CHLORIDE 100 ML IV ×3 (07:30→23:32)
--- NOTE | 2024-04-14 07:30 | P.CONPHA_ITS ---
Pharmacy Intervention Comments: MEDICATION RECONCILIATION COMPLETED ON PATIENT USING EXTERNAL FILL HISTORY FROM PHARMACY AND LIST FROM [facility] TECHNICIAN OFFICE. -JOSE CHAVEZD
[2024-04-14 08:05] LABS: Cord Blood PH 7.35 (7.35-7.45)
--- NOTE | 2024-04-14 08:21 | PC.NURSE ---
Lianet from lab called to notify this RN that the 2 units of PRBC are ready and on hold.
--- NOTE | 2024-04-14 08:45 | EXP.OP.NOTE ---
Date of procedure: 04/14/24 Pre-op Diagnosis:: 1. IUP at 39w2d 2. History of x 1 3. Maternal Crohn Disease 4. Depression and anxiety 5. History of depression Post-op Diagnosis:: 1. IUP at 39w2d 2. History of x 1 3. Maternal Crohn Disease 4. Depression and anxiety 5. History of depression Procedure performed:: Repeat Low Transverse Section Surgeon:: Daphney Sr DO Utility Pipe Layer(s):: Castillo Gardner MD SUPERVISOR DRYING AND WINDING:: Kathya Mars Anesthesia: spinal Estimated blood loss (mL): 500 Clinical Note:: Mrs Carol Gaffney is a very pleasant 34 yo at 39w2d who presents to [facility] Labor and Delivery for scheduled repeat . She has had good care. History of x 1. Operative findings:: 1. Live female baby, Kiran, weight pending. APGARS 8 (1 min), 9 (5 min) 2. Grossly normal appearing uterus, bilateral fallopian tubes and ovaries Operative note:: The risks, benefits and alternatives of the procedure were reviewed with the patient. Informed consent was obtained. Patient was taken to the operating room where spinal anesthesia was placed. The patient received 2 grams of Ancef preoperatively. Patient was placed in dorsal supine position with a leftward tilt. SCDs in place. Cruz catheter was inserted and draining clear urine prior to the start of the procedure. heart tones were obtained. Patient was then prepped and draped in normal sterile fashion. Allis clamp test was performed to ensure adequate anesthesia. A skin incision was made along prior Pfannenstiel scar. This was carried through to underlying layer of fascia. Fascia was incised in midline, extended laterally with Abraham scissors. Superior aspect of fascial incision was grasped with two Rylie clamps, elevated up, and rectus muscle dissected off bluntly and sharply with Abraham scissors. Inferior aspect of fascial incision was grasped with two Rylie clamps, elevated up, and rectus muscle dissected off bluntly and sharply with Abraham scissors. The rectus muscle was then in the midline and the peritoneum was entered bluntly with a digit. Peritoneal incision was then extended superiorly and inferiorly with good visualization of the bladder. Jaswinder retractor was inserted. The lower uterine segment was incised in a transverse fashion. Clear amniotic fluid was noted. Head was delivered without difficulty. Remainder of body was delivered without difficulty. Mouth and nares were bulb suctioned. Spontaneous cry was noted. Delayed cord clamping was performed for 60 seconds. The umbilical cord was clamped and cut. The was handed to awaiting pediatric staff in stable condition. Dr. Capps was present. Apgars were 8(1 min), 9(5 min). Cord blood was obtained. Gentle traction on the umbilical cord and uterine fundal massage delivered the placenta. Placenta was intact. Uterus was cleared of all clots and debris with a moist laparotomy sponge. Corners of the uterine incision were grasped with Allis clamps. The uterine incision was reapproximated with # 1 Vicryl suture in a running, locked stitch. Second layer of the same stitch was used to imbricate the incision. Vesicouterine peritoneum was reapproximated in a running locked stitch with 0-Vicryl suture. Hemostasis was noted. Posterior cul-de-sac was cleaned with moist laparotomy sponge. Gutters cleared of all clots and debris with a moist laparotomy sponge. Reinspection of the lower uterine segment demonstrated small amount of oozing. Gel Foam was applied over uterine incision. Hemostasis was noted. At this point all instruments and sponges were removed from the pelvis.? The peritoneum was grasped with Becky clamps x 3. The peritoneum was reapproximated with 0 Vicryl suture in a running stitch. The corners of the fascia were grasped with Rylie clamps, and the fascia was reapproximated with two # 1 Vicryl suture overlapped to the right of midline. Subcutaneous tissue was irrigated with clear return of fluids. The subcutaneous tissue was reapproximated with 2-0 Vicryl. The skin was reapproximated with Insorb lupe. Steri strips and Telfa was placed over closed Pfannenstiel skin incision. At the end of the procedure, the uterus was firm with no vaginal bleeding. Patient tolerated the procedure well. Instrument, sponges and needle counts were correct x 2. Mom and baby were transported to recovery room in stable condition. Condition: stable Disposition: same day Specimens:: 1. Cord blood Complications:: None
--- NOTE | 2024-04-14 09:14 | EXP.ANES.I ---
[facility] Anesthesia Record Part I Anesthesia Record I Intake, IV Amount: 1,900 Hydration: Adequate Estimated blood loss (mL): 600 Urine output (mL): 300 Blood Products used (#): none Blood Pressure: 123/69 SaO2: 99 Pulse Rate: 75 Airway Patency: Patent Respiratory Rate: 18 Temperature: 97.4 F Patient is:: Awake (Talking) and Stable Stable to PACU at:: 09:04
[2024-04-14 09:23] LABS: Microscopic,Cath URINE MICROSCOPIC (MICROSCOPIC)
[2024-04-14] MEDS: ACETAMINOPHEN 500MG TAB 1000 MG PO ×3 (09:39→20:34)
[2024-04-14] MEDS: OXYTOCIN/RINGERS LACTATE 30 UNITS/500 ML BAG 40 UNITS IV (09:40)
[2024-04-14] MEDS: LACTATED RINGERS 1000ML 1,000 ML 125 ML IV ×2 (09:40→22:03)
[2024-04-14 10:03] LABS: Appearance,Urine/Cath CLEAR (Clear); Bilirubin,Cath Negative (Negative); Blood, Urine/Cath Negative (Negative); Color,Urine/Cath YELLOW (Yellow); Glucose,Urine/Cath (UA) Negative (Negative); Ketones,Urine/Cath Negative (Negative); Leukocyte Esterase,Cath Negative (Negative); Nitrate,Cath Negative (Negative); PH,Urine/Cath 7.5 (5.0-8.5); Protein,Urine/Cath Negative (Negative); Urobilinogen,Cath 0.2 EU/dl (0.2)
[2024-04-14] MEDS: OXYCODONE 5MG IMMEDIATE RELEASE TABLET 5 MG PO ×2 (10:10→18:08)
[2024-04-14 11:10] LABS: Squamous Epithelial Ur./Cath Occasional #/hpf (0-5); WBC,Urine/Cath Occasional #/hpf (0-3)
[2024-04-14 11:16] LABS: Bacteria,Urine/Cath TRACE /lpf
[2024-04-14] MEDS: ONDANSETRON 4MG/2ML VIAL 4 MG IV (11:37)
[2024-04-14] MEDS: HYDROMORPHONE 2MG/ML SYRINGE 2 MG IV ×4 (12:55→23:39)
[2024-04-14] MEDS: OXYCODONE 5MG IMMEDIATE RELEASE TABLET 10 MG PO ×2 (14:01→22:03)
[2024-04-14] MEDS: KETOROLAC 30MG/ML VIAL 30 MG IV ×2 (14:02→20:34)
[2024-04-14] MEDS: PROMETHAZINE HCL 25MG/ML 1ML VIAL 12.5 MG IV (16:38)
[2024-04-14] MEDS: SODIUM CHLORIDE 0.9% 25ML BAG 25 ML IV (16:40)
[2024-04-14] MEDS: PRENATAL MULTIVITAMIN W/IRON 1 EACH PO (16:54)
[2024-04-14] MEDS: hydrOXYzine pamoate 25MG CAPSULE 50 MG PO (17:00)
[2024-04-14] MEDS: SIMETHICONE 80MG CHEWABLE TABLET 160 MG PO (20:56)
[2024-04-15] MEDS: OXYCODONE 5MG IMMEDIATE RELEASE TABLET 10 MG PO ×6 (02:30→23:48)
[2024-04-15] MEDS: ACETAMINOPHEN 500MG TAB 1000 MG PO ×4 (02:30→20:31)
[2024-04-15] MEDS: KETOROLAC 30MG/ML VIAL 30 MG IV (02:31)
[2024-04-15] MEDS: SIMETHICONE 80MG CHEWABLE TABLET 160 MG PO ×2 (02:37→15:36)
[2024-04-15] MEDS: HYDROMORPHONE 2MG/ML SYRINGE 2 MG IV ×3 (04:54→13:25)
[2024-04-15 05:52] LABS: Basophils # 0.1 K/mm3 (0-0.2); Basophils % 0.5 % (0.1-2.0); Eosinophils # 0.1 K/mm3 (0.0-0.4); Eosinophils % 0.7 % (0.1-12.0); Hematocrit 27.2 % (37.0-47.0); Lymphocytes # 1.7 K/mm3 (0.7-4.5); Lymphocytes % 17.2 % (10-50); Mean Corpuscular HGB Conc 32.2 g/dL (31.8-35.4); Mean Corpuscular Hemoglobin 28.3 pg (27.0-31.2); Mean Corpuscular Volume 88.1 fl (81-99); Mean Platelet Volume 11.2 fl (7.4-10.4); Monocytes # 0.6 K/mm3 (0.1-1.0); Monocytes % 5.9 % (1.7-9.3); Neutrophils # 7.3 K/mm3 (1.8-7.8); Neutrophils % 75.7 % (37.0-80.0); Platelet Count 214 K/mm3 (142-424); Red Blood Count 3.08 M/mm3 (4.20-5.40); Red Cell Distribution Width 17.1 % (11.5-17.5); White Blood Count 9.7 K/mm3 (4.8-10.8)
[2024-04-15 06:04] LABS: Hemoglobin 8.7 g/dL (12.2-16.2)
--- NOTE | 2024-04-15 06:33 | P.PN_ITS ---
Subjective *Date: 04/15/24 *Time: 06:33 Interval history: She is doing well this morning. She is eating and drinking and ambulating. She has been passing a few moderate size clots. Her hemoglobin this morning is 8.7. She is hemodynamically stable. Her color looks normal. We will get another H&H at 1600 today. She is breast-feeding. Her pain has been moderate overnight but we have been giving her regular pain medicine. Medical Exam Vital signs and Labs for Last 24 Hours: Vital Signs Temp Pulse Pulse Resp BP BP Pulse Ox 04/14/24 21:16 97.7 F 101 H 17 110/62 96 04/14/24 09:36 97.9 F 102 H 17 113/56 L 98 04/14/24 09:29 103 H 18 111/57 L 100 04/14/24 09:19 79 18 123/71 100 04/14/24 09:14 97.4 F L 75 18 123/69 04/14/24 09:09 100 H 18 106/56 L 98 04/14/24 08:59 98 F 75 18 123/69 100 O2 Del Method 04/14/24 21:16 Room Air 04/14/24 09:36 Room Air 04/14/24 09:29 Room Air 04/14/24 09:19 Room Air 04/14/24 09:14 04/14/24 09:09 Room Air 04/14/24 08:59 Room Air Intake and Output 04/14/24 04/15/24 04/15/24 19:59 03:59 11:59 Output Total 800 / 800 Balance -800 / -800 Output: Output, Urine Amount (Catheter) 800 / 800 Cruz 800 / 800 Laboratory Results - last 24 hr 04/14/24 05:45: Blood Type O Positive, Antibody Screen Negative, Crossmatch (AHG) See Detail 04/14/24 08:03: Cord ABG pH 7.35 04/14/24 : Urine Color Yellow, Urine Appearance Clear, Urine pH 7.5, Ur Specific [place] 1.010, Urine Protein Negative, Urine Glucose (UA) Negative, Urine Ketones Negative, Urine Blood Negative, Urine Nitrate Negative, Urine Bilirubin Negative, Urine Urobilinogen 0.2, Ur Leukocyte Esterase Negative, Urine RBC None, Urine WBC Occasional, Ur Squamous Epith Cells Occasional, Urine Bacteria Trace 04/15/24 05:38: WBC 9.7 D, RBC 3.08 L, Hgb 8.7 L D, Hct 27.2 L, MCV 88.1, MCH 28.3, MCHC 32.2, RDW 17.1, Plt Count 214, MPV 11.2 H, Neut % (Auto) 75.7, Lymph % (Auto) 17.2, [place] % (Auto) 5.9, Eos % (Auto) 0.7, Baso % (Auto) 0.5, Neut # (Auto) 7.3, Lymph # (Auto) 1.7, [place] # (Auto) 0.6, Eos # (Auto) 0.1, Baso # (Auto) 0.1 I & O for Labs for Last 24 Hours: Intake & Output 04/12/24 04/13/24 04/14/24 04/15/24 11:59 11:59 11:59 11:59 Intake Total 1900 / 1900 Output Total 800 / 800 Balance 1900 / 1900 -800 / -800 Weight 186 lb Head: Present atraumatic ENT: Present normal exam Neck: Present normal inspection Respiratory: Present normal respiratory effort; Absent accessory muscle use Assessment and Plan *Assessment and plan (1) Previous section: Status: Acute Category: Surgical Code(s): Z98.891 - History of uterine scar from previous surgery (2) delivery delivered: Status: Acute Category: Medical Code(s): O82 - Encounter for delivery without indication Plan She is doing really well this morning. Will plan to repeat her blood work again at 4:00 this afternoon. We will continue with the regimen of regularly scheduled pain medicine for her. She looks well this morning. We will plan to send her home and the 24-48 hours.
[2024-04-15] MEDS: CITALOPRAM 40MG TABLET 40 MG PO (08:22)
[2024-04-15] MEDS: IBUPROFEN 400 MG TABLET 800 MG PO ×3 (08:23→23:48)
[2024-04-15 08:31] VITALS: BP 117/68; PULSE 78; RESP 18; TEMP 37; O2SAT 94
--- NOTE | 2024-04-15 08:35 | P.PNANES_ITS ---
[facility] Anesthesia Record Part II Anesthesia Record Part II Discharge Time: 09:29 Destination: Obstetric PACU nurse assessment reviewed?: Yes Patient Condition:: Good Anesthesia Complications:: None Swallowing reflex intact?: Yes Airway Patency: Patent Cyanosis?: No Blood Pressure: 111/57 SaO2: 100 Respiratory Rate: 18 Pulse Rate: 103 Temperature: 98 F Mental Status: Alert & Oriented Pain level:: 0 Nausea and/or vomitting:: None Intake, IV Amount: 1,900 Hydration: Adequate
[2024-04-15 08:38] VITALS: BP 111/57; PULSE 103; RESP 18; TEMP 36.6; O2SAT 100
[2024-04-15] MEDS: ONDANSETRON 4MG/2ML VIAL 4 MG IV (14:09)
[2024-04-15 16:11] LABS: Hematocrit 27.7 % (37.0-47.0); Hemoglobin 9.3 g/dL (12.2-16.2)
[2024-04-15 16:50] VITALS: BP 112/55; PULSE 82; RESP 18; TEMP 36.7; O2SAT 96
[2024-04-15] MEDS: HYDROMORPHONE HCL 2 MG TABLET PO ×2 (17:33→20:31)
[2024-04-16] MEDS: ACETAMINOPHEN 500MG TAB 1000 MG PO ×2 (03:45→09:10)
[2024-04-16] MEDS: OXYCODONE 5MG IMMEDIATE RELEASE TABLET 10 MG PO (03:46)
[2024-04-16] MEDS: HYDROMORPHONE HCL 2 MG TABLET PO (06:24)
[2024-04-16 08:56] VITALS: BP 113/56; PULSE 73; RESP 18; TEMP 36.8; O2SAT 98
[2024-04-16] MEDS: OXYCODONE 5MG IMMEDIATE RELEASE TABLET 5 MG PO (09:11)
[2024-04-16] MEDS: IBUPROFEN 400 MG TABLET 800 MG PO (09:11)
[2024-04-16] MEDS: SENNA 8.6MG TABLET 8.59999999999999964 MG PO (09:11)
[2024-04-16] MEDS: SIMETHICONE 80MG CHEWABLE TABLET 160 MG PO (09:11)
--- NOTE | 2024-04-16 09:57 | EXP.DC.SUM ---
General Admission date:: 04/14/24 Discharge date: 04/16/24 HPI HPI HPI: Mrs Carol Gaffney is a very pleasant 34 yo at 39w2d who presents to [facility] Labor and Delivery for scheduled repeat . She has had good care. History of x 1. History of Present Criteria for establishing EDC:: LMP confirmed by 1st trimester US care: good care Ultrasounds: normal mid trimester US Obstetrical complications: previous Medical complications: gastrointestinal (Crohns) Labs Blood type: O (+) positive Rubella: immune RPR/VDRL: nonreactive GBS status: negative HBsAG: negative Hospital Course Hospital Course Hospital Course: On April 14, 2024 she underwent a repeat lower segment transverse section. She delivered a liveborn female child at 8:01 AM. Baby weighed 8 pounds 0 ounces and was 19-1/4 inches long. She had Apgars of 8 at 1 minute and 9 at 5 minutes. She has done well and has remained afebrile throughout her hospitalization. She is eating and drinking and ambulating. She is breast-feeding. Her lochia is normal. We had some initial issues with control of pain and she required both oxycodone 10 mg as well as Dilaudid 2 mg. She has been taking Motrin as well. Her pain is reasonably well-controlled now. Her postoperative hemoglobin is 9.3. She will be discharged home today to follow-up with Dr. Sr in approximately 2 weeks time. She was given the usual instructions with respect to limiting her activity, driving and sexual activity. She was given instructions with respect to wound care. She was given a prescription for Toradol 10 mg number 20 tablets to take every 6 hours. She was also given a prescription for Percocet 10 mg to take every 6 hours as needed for pain number 20 tablets. Her condition on discharge is stable and improved. Exam Data for Last 24 hours Vital signs and Labs for Last 24 Hours: Temp Pulse Resp BP Pulse Ox O2 Del Method 98.3 F 73 18 113/56 L 98 Room Air 04/16/24 08:56 04/16/24 08:56 04/16/24 08:56 04/16/24 08:56 04/16/24 08:56 04/16/24 08:56 Laboratory Results - last 24 hr 04/15/24 15:55: Hgb 9.3 L, Hct 27.7 L I & O for Last 24 hours: Intake & Output 04/13/24 04/14/24 04/15/24 04/16/24 11:59 11:59 11:59 11:59 Intake Total 1900 / 1900 1900 / 1900 Output Total 800 / 800 Balance 1900 / 1900 1100 / 1100 Weight 186 lb Constitutional Constitutional: no acute distress *Routine HEENT Exam Head: Present normocephalic *Routine Respiratory Exam Respiratory: Present normal respiratory effort; Absent accessory muscle use Results Data Completed and Pending Labs on day of discharge: Labs from last 24 hours 04/15/24 15:55 Hgb 9.3 L Hct 27.7 L DS: Diagnosis Discharge Diagnosis (1) Previous section: Status: Acute Code(s): Z98.891 - History of uterine scar from previous surgery (2) delivery delivered: Status: Acute Code(s): O82 - Encounter for delivery without indication Meds Home Medications and Allergies Home Medications Medication Instructions Recorded Confirmed Type prenat.vits,andrew,syb-[id number]-[id number] 1 tab PO DAILY 10/01/20 04/14/24 History escitalopram oxalate 20 mg tablet 20 mg PO DAILY 09/08/23 04/14/24 History mecobalamin (vitamin B12) 500 mcg 500 mcg PO DAILY 09/23/23 04/14/24 History chewable tablet ascorbic acid (vitamin C) 1,000 mg 1 g PO Q6H 12/03/23 04/14/24 History capsule coenzyme Q10 200 mg/gram oral 200 mg PO DAILY 12/03/23 04/14/24 History powder (H2Q CoQ10) magnesium 250 mg tablet 250 mg PO DAILY 12/03/23 04/14/24 History pantoprazole 40 mg tablet,delayed 40 mg PO DAILY #30 tabs 01/04/24 04/14/24 Rx release (Protonix) ketorolac 10 mg tablet 10 mg PO Q6H #20 tabs 04/16/24 Rx oxycodone-acetaminophen 10 mg-325 1 tab PO Q6H PRN pain #20 tabs 04/16/24 Rx mg tablet New Prescriptions to Start Prescriptions: ketorolac Castillo Gardner oxycodone-acetaminophen Gardner,Castillo Allergies Allergy/AdvReac Type Severity Reaction Status Date / Time metoclopramide [From Reglan] Allergy Mild hyper, Verified 04/14/24 05:34 skin felt werid Opioids - Morphine Analogues Allergy Mild vomiting Verified 04/14/24 05:34 prochlorperazine Allergy Mild vomiting Verified 04/14/24 05:34 [From Compazine] nickel Allergy Verified 04/14/24 05:34 Discharge Plan Disposition Patient Disposition: Home, Self-Care Discharge Order Discharge Orders: Discharge Order (Routine); Ordered 04/16/24 Ordered By: Castillo Gardner Follow up Plan Follow up with: Daphney Sr DO [Staff Physician] - 04/28/24 11:15 am Prescriptions/Medication Reconciliation: New ketorolac 10 mg Tablet 10 mg PO Q6H Qty: 20 0RF oxycodone-acetaminophen 10-325 mg tablet 1 tab PO Q6H PRN (Reason: pain) Qty: 20 0RF Continued prenat.vits,andrew,jms-xybh-qfyfa Tablet 1 tab PO DAILY magnesium 250 mg tablet 250 mg PO DAILY H2Q CoQ10 200 mg/gram powder 200 mg PO DAILY ascorbic acid (vitamin C) 1,000 mg capsule 1 g PO Q6H escitalopram oxalate 20 mg tablet 20 mg PO DAILY mecobalamin (vitamin B12) 500 mcg tablet,chewable 500 mcg PO DAILY pantoprazole [Protonix] 40 mg tablet,delayed release (DR/EC) 40 mg PO DAILY Qty: 30 5RF Problem Reconciliation Problems Reviewed?: Yes Patient Discharge Instructions ACTIVITY: No heavy lifting DIET: continue same diet Additional Instructions: Nothing in the vagina for 6 weeks No driving, heavy lifting, or tub baths until released Drink plenty of fluids Patient Instructions: Depression, Hemorrhage, DI for , DI for Pre-eclampsia, [facility] Post Discharge Instructions Providers Primary Care Provider: Maximus Capps Admit Provider: Daphney Sr Attending Provider: Daphney Sr
== END 2024-04-16 11:10 | disposition home or self-care (01) | DRG 788 ==
PROVIDERS: Nurse Practitioner Obstetrics & Gynecology; Admitting Provider Obstetrics & Gynecology; PCP Internal Medicine Adolescent Medicine; Visit Provider Obstetrics & Gynecology
PROC: 10D00Z1 Extraction of Products of Conception, Low, Open Approach (ICD-10-PCS; principal; 2024-04-14 07:30)
DX: O34.211 Maternal care for low transverse scar from previous cesarean delivery (principal); N85.8 Other specified noninflammatory disorders of uterus; Z37.0 Single live birth; O99.344 Other mental disorders complicating childbirth; Z3A.39 39 weeks gestation of pregnancy
CPT/HCPCS: 59514; 36415; 59025; 80053; 81001; 82800; 85014; 85018; 85025; 86850; 94761; C9290; G0283; J2405; J7120

== ENCOUNTER 2024-12-20 17:20 | Emergency (ER) | payer OTHER, SELFPAY ==
[2024-12-20 18:14] VITALS: BP 105/57; PULSE 82; RESP 18; TEMP 36.7; O2SAT 98; BMI 26.4
--- NOTE | 2024-12-20 18:15 | EXP.UTC ---
Discharge Plan Disposition Patient Disposition: Home, Self-Care Condition: Good Prescriptions Prescriptions: New azithromycin [Zithromax] 250 mg tablet 250 mg PO UD DOSE PK Qty: 6 0RF Rx Instructions: Take two (2) tablets today, then one (1) tablet days #2 thru #5 methylprednisolone 4 mg Tablets,Dose Pack 4 mg PO DIRECTED 6 Days Qty: 21 0RF Rx Instructions: Take 1 pack as directed for 6 days No Action norethindrone (contraceptive) 0.35 mg tablet 0.35 mg PO DAILY Qty: 84 4RF escitalopram oxalate 10 mg tablet 10 mg PO DAILY Qty: 30 2RF escitalopram oxalate 20 mg tablet 20 mg PO DAILY Qty: 30 2RF sumatriptan succinate 100 mg tablet 100 mg PO DAILY PRN (Reason: migraines) Qty: 30 3RF Rx Instructions: take 1 tablet by mouth daily as needed for migraines Referrals Follow up/Referrals: Maximus Capps MD [Primary Care Provider] - See instructions Activity Restrictions/Add. Instructions Additional Instructions/Restrictions: Drink plenty of fluids. Take tylenol or ibuprofen for pain or fever. Take the medications as directed. Follow up with your regular doctor. GO TO THE ER FOR ANY WORSENING SYMPTOMS Clinical Impressions Clinical Impression: Sinusitis, Bronchitis Instructions Patient Instructions: DI for Sinusitis, DI for Acute Bronchitis Print Language Print Language: [place] Discharge ED Provider: Mike Ardon [facility] [place] HPI General Stated complaint: both ears hurt,sore throat,headache Time Seen by Provider: 12/20/24 18:15 Related Data Previous Rx's ?Medication ?Instructions ?Recorded norethindrone (contraceptive) 0.35 0.35 mg PO DAILY #84 tabs 05/27/24 mg tablet escitalopram oxalate 10 mg tablet 10 mg PO DAILY #30 tabs 06/06/24 escitalopram oxalate 20 mg tablet 20 mg PO DAILY #30 tabs 06/06/24 sumatriptan succinate 100 mg tablet 100 mg PO DAILY PRN migraines #30 09/09/24 tabs azithromycin 250 mg tablet 250 mg PO UD DOSE PK #6 tabs 12/20/24 (Zithromax) methylprednisolone 4 mg tablets in 4 mg PO DIRECTED 6 days #21 tabs 12/20/24 a dose pack Allergies Allergy/AdvReac Type Severity Reaction Status Date / Time metoclopramide (From Reglan) Allergy Mild hyper, Verified 05/27/24 09:38 skin felt werid Opioids - Morphine Analogues Allergy Mild vomiting Verified 05/27/24 09:38 prochlorperazine (From Allergy Mild vomiting Verified 05/27/24 09:38 Compazine) nickel Allergy Verified 05/27/24 09:38 [facility] Disclaimer: The information contained in this section may have been updated after the patient was seen, as this information can be updated by other users. Medical History (Updated 12/20/24 @ 18:33 by Mike Ardon APRN) Migraine Crohn disease History of depression Tubal ligation evaluation Depression Anxiety History of anemia Hydrosalpinx Endometriosis Surgical History History of cholecystectomy History of section History of bowel resection Family History Mother Diabetes Social History Smoking Status: Never smoker alcohol intake: never substance use type: denies use current occupational status: employed Travel in the last 8 weeks: None household members: spouse housing: house current occupational exposures/hazards: No caffeine: Yes Have you lived/traveled outside US in past 30 days?: No Contact w/someone who lives/traveled outside US past 30 days?: No Exposure to someone with infectious disease in past 14 days?: No Do you have a fever (greater than 100.4 F or 38 C)?: No Have you tested positive for COVID-19: No Exposed to someone with COVID-19 in past 14 days?: No Do you have a sore throat?: No Do you have a cough?: No Do you have any weakness?: No Do you have any diarrhea?: No Are you experiencing any unusual bleeding?: No Do you have any muscle aches/pain?: No Do you have any abdominal pain?: No Are you experiencing loss of taste or smell?: No ROS Obtained: Yes All systems reviewed & no additional complaints except as documented Constitutional Constitutional: Reports poor appetite Eyes Eyes: Reports system reviewed and no additional complaints, except as documented ENT Ears, Nose, Mouth, and Throat: Reports as per HPI Cardiovascular Cardiovascular: Reports system reviewed and no additional complaints, except as documented and Denies chest pain Respiratory Respiratory: Denies shortness of breath, Reports chest congestion, Reports cough, Denies stridor and Denies wheezing Gastrointestinal Gastrointestingal: Reports system reviewed and no additional complaints, except as documented; Denies abdominal pain, diarrhea or vomiting Musculoskeletal Musculoskeletal: Reports system reviewed and no additional complaints, except as documented and Denies arthralgias Integumentary/Breasts Skin/Breast: Reports system reviewed and no additional complaints, except as documented and Denies rash Neurologic Neurologic: Denies paresthesias Allergic/Immunologic Allergic/Immunologic: Denies wheezing Physical Exam General General appearance: alert and in no apparent distress Eye Eye exam: Present normal appearance, PERRL and EOMI ENT ENT exam: Present mucous membranes moist and normal external ear exam Expanded ENT Exam External ear exam: Present normal external inspection TM/Canal exam: Bilateral TM: erythema and bulging Nose exam: Absent sinus tenderness Nasal speculum exam: Bilateral: normal Mouth exam: Present normal external inspection; Absent drooling Teeth exam: Present normal inspection Throat exam: Present tonsillar erythema and tonsillomegaly Neck Neck exam: Present normal inspection, full ROM and trachea midline; Absent tenderness, lymphadenopathy or thyromegaly Chest Chest inspection: Present normal inspection and symmetric chest wall rise; Absent tenderness or rash Respiratory Respiratory exam: Present normal lung sounds bilaterally; Absent respiratory distress, wheezes, stridor or accessory muscle use Cardiovascular Cardiovascular exam: Present regular rate, normal rhythm and normal heart sounds Abdominal Exam Abdominal exam: Present soft; Absent distention, tenderness, guarding, rebound or rigidity Extremities Exam Extremities exam: Present normal inspection, full ROM and normal capillary refill; Absent tenderness or calf tenderness Back Exam Back exam: Present normal inspection and full ROM; Absent tenderness Neurological Exam Neurological exam: Present alert and oriented X3 Psychiatric Psychiatric exam: Present normal affect and normal mood Skin Skin exam: Present warm, dry, intact and normal color Lymphatic Lymphatic Findings: no adenopathy Medical Decision Making Medical Records Medical records reviewed: No I reviewed the patient's medical records. Screening: Per USPSTF and CDC recommendations, given the prevalence of disease in our region, it is our hospital?s policy to screen for HIV and viral Hepatitis for all patients aged 18 and over and those with ongoing risk factors. [place] Inquiry Pt receiving controlled substance: No Lab Data Lab results reviewed: Yes I reviewed the patient's lab results.
[2024-12-20 18:25] LABS: UTC Strep Screen (Rapid) Negative (Negative)
[2024-12-20] MEDS: AZITHROMYCIN 250MG TABLET 500 MG PO (18:45)
[2024-12-20 18:55] VITALS: BP 105/57; PULSE 82; RESP 18; TEMP 36.7
== END 2024-12-20 18:56 | disposition home or self-care (01) ==
PROVIDERS: Emergency Provider Nurse Practitioner Family; PCP Internal Medicine Adolescent Medicine
DX: J40 Bronchitis, not specified as acute or chronic (principal); J32.9 Chronic sinusitis, unspecified
CPT/HCPCS: 87880; 99213; G0381

== ENCOUNTER 2024-12-22 10:57 | Outpatient (CLI) | payer OTHER, SELFPAY ==
--- NOTE | 2024-12-22 10:59 | US_ITS ---
PROCEDURE: US TRANSVAGINAL CLINICAL INDICATION: abdominal/pelvic pain COMPARISON: CT CT ABDOMEN PELVIS W CON from 05/21/2020 FINDINGS: Transvaginal sonographic images of the pelvis were obtained. UTERUS: 6.8 cm x 4.2cmx 2.8 cm anteverted with a combined endometrial thickness of 3.9mm. Are multiple small hyperechoic areas throughout the uterus and endometrium. The uterus appears heterogenous. LEFT OVARY: 2.8 cmx1.4cmx1.5cm with a volume of 3.1ml. There are multiple small follicles within the ovary. RIGHT OVARY: 3.6 cmx 2.3 cmx1.4cm with a volume of 6ml. There are multiple small follicles within the ovary. Both ovaries are seen and appear normal. Doppler flow to both ovaries are seen. There is no fluid in the cul-de-sac. IMPRESSION: 1. Anteverted uterus normal in shape and size. The endometrium is thin. 2. There are several small echogenic foci within the myometrium and endometrium. The uterus appears heterogenous. 3. Both ovaries are seen and appear normal. 4. No fluid in the cul-de-sac. 5. The contract preparer noted a lot of bowel peristalsis. Dictated by: Castillo Gardner MD 12/23/2024 09:21 Castillo Gardner MD in OV 12/23/2024 09:21
[2024-12-22 11:57] LABS: Basophils % 0.3 % (0.1-2.0); Eosinophils % 0.1 % (0.1-12.0); Hematocrit 41.4 % (37.0-47.0); Hemoglobin 13.8 g/dL (12.2-16.2); Lymphocytes # 1.8 K/mm3 (0.7-4.5); Lymphocytes % 12.5 % (10-50); Mean Corpuscular HGB Conc 33.3 g/dL (31.8-35.4); Mean Corpuscular Hemoglobin 29.7 pg (27.0-31.2); Mean Platelet Volume 11.6 fl (7.4-10.4); Monocytes % 7.2 % (1.7-9.3); Neutrophils # 11.5 K/mm3 (1.8-7.8); Neutrophils % 79.5 % (37.0-80.0); Platelet Count 326 K/mm3 (142-424); Red Blood Count 4.65 M/mm3 (4.20-5.40); Red Cell Distribution Width 12.6 % (11.5-17.5); White Blood Count 14.5 K/mm3 (4.8-10.8)
[2024-12-22 12:17] LABS: Hemoglobin A1C 5.1 % (4.0-6.0)
[2024-12-22 12:21] LABS: Alanine Aminotransferase 24 U/L (12-78); Albumin Level 4.8 g/dl (3.5-5.0); Albumin/Globulin Ratio 1.8 (1.1-1.8); Alkaline Phosphatase 99 U/L (38-126); Anion Gap 14.7 mEq/L (5-15); Aspartate Amino Transferase 25 U/L (14-36); Bilirubin,Total 0.4 mg/dl (0.2-1.3); Blood Urea Nitrogen 12 mg/dl (7-17); Carbon Dioxide 27 mmol/L (22.0-30.0); Chloride 103 mmol/L (98-107); Estimated Glomerular Filt Rate 96 ml/min (>60); GFR (African American) 116 ML/MIN (>60); Globulin 2.6 g/dL (1.3-3.2); Glucose 84 mg/dl (74-100); Magnesium 1.7 mg/dl (1.6-2.3); Potassium 4.7 mmoL/L (3.5-5.1); Sodium 140 mmol/L (136-145); Total Protein,Serum 7.4 g/dl (6.3-8.2)
[2024-12-22 12:40] LABS: HCG,Quantitative < 2 mIU/ml (0-5.42)
[2024-12-23 13:13] LABS: Estradiol 5.1 pg/mL (.); FSH 3.1 mIU/mL (.); Testosterone,Total 5 ng/dL (8-60)
== END 2024-12-22 23:59 | disposition home or self-care (01) ==
LOC: RAD 10:57
PROVIDERS: PCP Internal Medicine Adolescent Medicine; Visit Provider Obstetrics & Gynecology
DX: R10.2 Pelvic and perineal pain (principal); R14.0 Abdominal distension (gaseous); R45.86 Emotional lability
CPT/HCPCS: 36415; 76830; 80053; 82306; 82670; 83001; 83036; 83735; 84403; 84443; 84702; 85025

== ENCOUNTER 2025-02-02 15:14 | Outpatient (CLI) | payer OTHER, SELFPAY ==
--- NOTE | 2025-02-02 15:29 | US_ITS ---
PROCEDURE INFORMATION: Exam: US Right Breast, Complete Exam date and time: 02/02/2025 3:27 PM Age: 35 years old Clinical indication: Breast pain; Right. Patient currently TECHNIQUE: Imaging protocol: Complete ultrasound of all four quadrants of the right breast and the retroareolar regions, including ultrasound of the axilla when performed. COMPARISON: No relevant prior studies available. FINDINGS: ULTRASOUND: Breast ultrasound findings: Sonographic images of the right breast including the retroareolar region, all 4 quadrants and the axilla do not demonstrate any solid or cystic masses. No architectural distortion or acoustical shadowing. No skin thickening or axillary adenopathy. IMPRESSION: No sonographic evidence of malignancy. Annual bilateral mammographic screening is recommended to commence at the age of 40 unless otherwise clinically indicated. ASSESSMENT: BI-RADS Category 1: Negative.
== END 2025-02-02 23:59 | disposition home or self-care (01) ==
LOC: RAD 15:15
PROVIDERS: PCP Internal Medicine Adolescent Medicine; Visit Provider Obstetrics & Gynecology
DX: O92.29 Other disorders of breast associated with pregnancy and the puerperium (principal)
CPT/HCPCS: 76641

== ENCOUNTER 2025-06-02 15:06 | Outpatient (CLI) | payer OTHER, SELFPAY ==
--- OUTSIDE RECORDS SUMMARY | 2025-06-02 15:15 | XMS_ITS | Clinical Summary ---
Author Organization [facility] Address [address] [place] [address] Care Team Providers Care Sports Medicine Physician Name Role Phone Provider, No Known Primary Care Provider Unavail able Allergies Active Allergy Reactions Criticality Noted Date Comments Prochlorperazine Edisylate Irritability Low 021 Metoclopramide Irritability Low 11/26/2020 Medications SUMAtriptan (IMITREX) 100 MG tablet 1 Active Probiotic Product (PROBIOTIC PO) Take by mouth Daily. Active Coenzyme Q10 (COQ10 PO) Take 200 mg by mouth Daily. Active FIBER PO Take by mouth Daily. Active multivitamin with minerals (MULTIVITAMIN ADULT PO) Take 1 tablet by mouth Daily. Active Vit-Fe Fumarate-FA ( 27-1) 27-1 MG tablet tablet Take 1 tablet by mouth Daily. Active Cyanocobalamin (VITAMIN B-12 PO) Take by mouth Daily. Active Biotin w/ Vitamins C & E 1250-7.5-7.5 MCG-MG-UNT chewable tablet Chew Daily. Ac tive vancomycin (VANCOCIN) 125 MG capsule 1 Active LORazepam (ATIVAN) 1 MG tablet TAKE ONE TABLET BY MOUTH TWICE DAILY NEEDED FOR ANXIETY MAY CAUSE DROWSINESS 0 Active Social History Tobacco Use Types Packs/Day Years Used Date Smoking Tobacco: Never Smokeless Tobacco: Never Alcohol Use Standard Drinks/Week Comments Not Currently 0 (1 standard drink = 0.6 oz pur e alcohol) Abuse Screen Answer Date Recorded Unsafe at Home or Work/School Not on file Feels Threatened by Someone? Not on file 10/2023 Does Anyone Keep You from Co ntacting Others or Doint Things Outside the Home? Not on file 08/27/2023 Physical Sign of Abuse Present Not on file 1 Housing Stability Answer Date Recorded Current Living Arrangements Not on file 08/16 Potentially Unsafe Housing Conditions Not on cailin e 08/27/2023 Family and Community Support Answer King e Recorded Help with Day-to-Day Activities Not on file 08/27/2023 Lonely or Isolated Not on file 08/27/2023 Employment Answer Date Recorded Do you want help finding or keeping work or a abigail b? Not on file 08/27/2023 Disabilities Answer Date Recorded Concentrating, Remembering, or Making Decisions Difficulty Not on file 08/27/2023 Doing Errands Independently Difficulty Not on fi le 08/27/2023 Education Answer Date Recorded Help with school or training? Not on file Preferred Language Not on file 08/27/2023 Comments No Sex and Gender Information Value Date Recorded Sex Assigned at Not on file Legal Sex Female 8:07 AM EST Gender Identity Not on file Sexual Orientation Not on file Last Filed Vital Signs Vital Sign Reading Time Taken Comments Blood Pressure 100/59 11/26/2020 11:39 AM EST Pulse 82 11/26/2020 11:39 AM EST Temperature - - Respiratory Rate 18 11/26/2020 11:39 AM EST Oxygen Saturation - - Inhaled Oxygen Concentration - - Weight 64 kg (141 lb) 11/26/2020 11:39 AM EST Height 165.1 cm (5' 5 ) 11/26/2020 11:39 AM EST Body Mass Index 23.46 11/26/2020 11:39 AM EST Plan of Treatment Health Maintenance Due Date Last Done Comments Annual Gynecologic Pelvic an d Breast Exam 1990 TDAP/TD VACCINES (1 - Tdap) 2009 ANNUAL PHYSICAL 11/26/2020 HEPATITIS C SCREENING 11/26/2020 COVID-19 Vaccine ( - 2023-2 5 season) 2024 INFLUENZA VACCINE 08/16/2025 Pneumococcal Vaccine 0-49 Aged Out No longer eligible based on patient's age to complete this topic Insurance [facility] Care Teams Sports Medicine Physician Relationship Specialty Start Date End Date Provider, No Known [facility] [address] PCP - General 11/12/20
--- OUTSIDE RECORDS SUMMARY | 2025-06-02 15:15 | XMS_ITS | Clinical Summary ---
Demographics Address [address] [place] [address] Home Phone Mobile Phone Email Address Preferred Language 127 Marital Status Unknown Gnosticism Affiliation Unknown Race White Ethnic Group Not or Lati no Author Organization [facility] Address [facility] [place] [address] Care Team Providers Care Silver Solution Mixer Name Role Phone Pcp, No Primary Care Provider [phone] Source Comments This information has been disclosed to you from confidential records protectedfrom disclosure by state law. You shall make no further disclosure of thisinformation without the specific, written, and informed release of theindividual to whom it pertains, or as otherwise permitted by law. A generalauthorization for the release of medical or other information is not sufficientfor the purposes of therelease of HIV test results or diagnoses. [id number] Allergies Active Allergy Reactions Criticality Noted Date Comments Metoclopramide Low 11/26/2020 Other reaction(s): Irritability Prochlorperazine Edisylate Low Other reaction(s): Irritability Medications escitalopram oxalate (LEXAPRO) 20 MG tablet Take 1 tablet (20 mg total) by mouth daily. Active AYSHA ROOT, BULK, MISC Use as directed. Active magnesium 30 mg tablet Take 1 tablet (30 mg total) by mouth 2 times a day. Active coenzyme Q10 (CO Q-10) 200 mg capsule Take 1 capsule (200 mg total) by mouth daily. Active vit,andrew 74/iron/folic ( VITAMIN 1+1 ORAL) Take by mouth. Active cyanocobalamin (VITAMIN B-12) 1000 MCG tablet Take 1 tablet (1,000 mcg total) by mouth daily. Active cholecalciferol , vitamin D3, 1000 units tablet Take 1 tablet (1,000 Units total) by mouth daily. Active ascorbic acid, vitamin C, (VITAMIN C) 100 MG tablet Take 1 tablet (100 mg total) by mouth daily. Active SUMAtriptan (IMITREX) 100 MG tablet Take 1 tablet (100 mg total) by mouth once as needed for Migraine. Active omega 8-mqp-vye-fish oil (FISH OIL) 1,000 mg (120 mg-180 mg) Cap Take 1 capsule by mouth daily. Active Active Problems Problem Noted Date Diagnosed Date Fecal incontinence 08/07/2022 Family History Medical History Relation Comments Cancer Maternal Grandfather Heart attack Maternal Grandmother Relation Status Comments Father Alive Maternal Grandfather Maternal Grandmother Mother Alive Social History Tobacco Use Types Packs/Day Years Used Date Smoking Tobacco: Never Smokeless Tobacco: Never Alcohol Use Standard Drinks/Week Comments Not Currently 0 (1 standard drink = 0.6 oz pur e alcohol) Comments Unknown Sex and Gender Information Value Date Recorded Sex Assigned at Not on file Legal Sex Female 4:05 PM EDT Gender Identity Not on file Sexual Orientation Not on file Last Filed Vital Signs Vital Sign Reading Time Taken Comments Blood Pressure 101/68 01/22/2024 10:44 AM EST Pulse 84 01/22/2024 10:44 AM EST Temperature - - Respiratory Rate 16 01/22/2024 10:44 AM EST Oxygen Saturation 96% 01/22/2024 10:44 AM EST Inhaled Oxygen Concentration 96% 01/22/2024 1 0:44 AM EST Weight 78 kg (172 lb) 01/22/2024 10:44 AM EST Height 167.6 cm (5' 6 ) 08/07/2022 3:21 PM EDT Body Mass Index 27.76 08/07/2022 3:21 PM EDT Plan of Treatment Health Maintenance Due Date Last Done Comments Hepatitis C Screening (MyChart) 1990 Depression Screening 01/28/2008 HIV Screening 01/28/2008 Immunization: Hepatitis B (1 of 3 - 19+ 3-dose series) 2009 Cervical Cancer Screening/Pa p Smear (MyChart) 01/28/2020 Immunization: COVID-19 ( - season) 2024 Immunization: Influenza (MyC haney) (#1) 2025 Immunization: DTaP/Tdap/Td ( 2 - Td or Tdap) 10/31/2031 10/31/2021 Immunization: Pneumococcal Aged Out N o longer eligible based on patient's age to complete this topic Insurance * Guarantor: Carol Gaffney Account Type Relation to Patient Date of Phone Billing Address Personal/Family Self 1990 [address] [place] [address] [employer] Care Teams Silver Solution Mixer Relationship Specialty Start Date End Date Pcp, No No Address PCP - General 11/03/23
[2025-06-02 15:31] LABS: Hematocrit 41.0 % (37.0-47.0); Hemoglobin 13.9 g/dL (12.2-16.2); Immature Granulocytes % 0.2 %; Mean Corpuscular HGB Conc 33.9 g/dL (31.8-35.4); Mean Corpuscular Hemoglobin 30.3 pg (27.0-31.2); Mean Corpuscular Volume 89.3 fl (81-99); Nucleated Red Blood Cells % 0 %; Platelet Count 234 K/mm3 (142-424); Red Blood Count 4.59 M/mm3 (4.20-5.40); Red Cell Distribution Width-SD 41.9 fL; White Blood Count 5.3 K/mm3 (4.8-10.8)
[2025-06-02 16:20] LABS: Alanine Aminotransferase 16 U/L (12-78); Albumin Level 4.6 g/dl (3.5-5.0); Albumin/Globulin Ratio 1.8 (1.1-1.8); Alkaline Phosphatase 89 U/L (38-126); Anion Gap 13.6 mEq/L (5-15); Aspartate Amino Transferase 22 U/L (14-36); Bilirubin,Total 0.3 mg/dl (0.2-1.3); Blood Urea Nitrogen 9 mg/dl (7-17); Calcium 9.8 mg/dl (8.4-10.2); Carbon Dioxide 28 mmol/L (22.0-30.0); Chloride 104 mmol/L (98-107); Cholesterol 114 mg/dl (140-200); Creatinine,Serum 0.70 mg/dl (0.52-1.04); Estimated Glomerular Filt Rate 95 ml/min (>60); GFR (African American) 115 ML/MIN (>60); Globulin 2.6 g/dL (1.3-3.2); Glucose 98 mg/dl (74-100); HDL Cholesterol 48 mg/dl (40-60); Potassium 4.6 mmoL/L (3.5-5.1); Sodium 141 mmol/L (136-145); Total Protein,Serum 7.2 g/dl (6.3-8.2); Triglycerides 69 mg/dl (30-150)
[2025-06-02 16:31] LABS: C-Reactive Protein 1.3 mg/L (0-4)
[2025-06-02 16:37] LABS: 25-OH Vitamin D, Total 51.3 ng/mL (30-100)
[2025-06-02 16:51] LABS: Thyroid Stimulating Hormone 1.31 uIU/mL (0.465-4.68)
[2025-06-02 17:11] LABS: Vitamin B12 > 1000 pg/mL (239-931)
== END 2025-06-02 23:59 | disposition home or self-care (01) ==
LOC: LAB 15:14
PROVIDERS: PCP Internal Medicine Adolescent Medicine; Visit Provider Physician Assistant
DX: Z00.00 Encounter for general adult medical examination without abnormal findings (principal); M25.50 Pain in unspecified joint; R53.83 Other fatigue; Z83.438 Family history of other disorder of lipoprotein metabolism and other lipidemia
CPT/HCPCS: 36415; 80053; 80061; 82306; 82607; 84443; 85025; 85651; 86140

== ENCOUNTER 2025-06-20 14:28 | Outpatient (CLI) | payer OTHER, SELFPAY ==
--- OUTSIDE RECORDS SUMMARY | 2025-06-20 14:33 | XMS_ITS | Clinical Summary ---
Author Organization [facility] Address [address] [place] [address] Care Team Providers Care Tool Salvage Worker Name Role Phone Provider, No Known Primary [...] patient's age to complete this topic Insurance [facility] Care Teams Tool Salvage Worker Relationship Specialty Start Date End Date Provider, No Known [facility] [place] [address] PCP - General 11/12/20
--- OUTSIDE RECORDS SUMMARY | 2025-06-20 14:33 | XMS_ITS | Clinical Summary ---
Demographics Address [address] [place] [address] Home Phone Mobile Phone Email Address Preferred Language 127 Marital Status Unknown Presybeterian Affiliation Unknown Race White Ethnic Group Not or Lati no Author Organization [facility] Address [facility] [place] [address] Care Team Providers Care Vermin Exterminator Name Role Phone Pcp, No Primary Care [...] therelease of HIV test results or diagnoses. [id number] Allergies Active Allergy Reactions Criticality Noted [...] once as needed for Migraine. Active omega 4-vkl-tdz-fish oil (FISH OIL) 1,000 mg (120 mg-180 [...] Personal/Family Self 1990 [address] [address] [employer] Care Teams Vermin Exterminator Relationship Specialty Start Date End Date Pcp, No No Address PCP - General 11/03/23
[2025-06-20 16:17] LABS: Magnesium 1.9 mg/dl (1.6-2.3)
[2025-06-21 08:13] LABS: RA Latex Turbid. <10.0 IU/mL (<14.0)
[2025-06-21 15:11] LABS: Antinuclear Antibodies, IFA Negative (.)
== END 2025-06-20 23:59 | disposition home or self-care (01) ==
LOC: RAD 14:29
PROVIDERS: Physician Assistant; PCP Internal Medicine Adolescent Medicine; Visit Provider Obstetrics & Gynecology
DX: N64.4 Mastodynia (principal)
CPT/HCPCS: 36415; 77062; 77066; 83735; 86038; 86200; 86431; G0279

== ENCOUNTER 2025-08-11 00:13 | Emergency (ER) | payer OTHER, SELFPAY ==
--- NOTE | 2025-08-11 00:15 | ECG_ITS ---
APPROVED REPORT Exam: Resting ECG HR:101 bpm ECG Measurements Heart Rate 101 AXES KS 139 P 153 QRSd 84 QRS 143 QT 323 T -21 QTc 381 Conclusion SINUS TACHYCARDIA ARM LEADS REVERSED [INVERTED P AND QRS IN I] ABNORMAL RHYTHM ECG UNCONFIRMED REPORT Electronically signed by : JUDI HANDY, 08/11/2025 03:57:12
[2025-08-11 00:21] VITALS: BP 98/57; PULSE 102; RESP 12; TEMP 36.6; O2SAT 98; BMI 24.7
--- NOTE | 2025-08-11 00:22 | XR_ITS ---
PROCEDURE INFORMATION: Exam: XR Chest Exam date and time: 08/11/2025 1:04 AM Age: 35 years old Clinical indication: Shortness of breath; Additional info: SOA TECHNIQUE: Imaging protocol: Radiologic exam of the chest. Views: 1 view. Total images: 1 COMPARISON: CT CHEST WO CON 06/17/2023 1:52 PM FINDINGS: Tubes, catheters and devices: EKG leads are present. Lungs: Unremarkable. No consolidation. No pulmonary vascular congestion or edema. Pleural spaces: Unremarkable. No pleural effusion. No pneumothorax. Heart/Mediastinum: Unremarkable. No cardiomegaly. No mediastinal widening or hilar enlargement. Bones/joints: Remote or developmental deformity of the right 1st and 2nd ribs. Soft tissues: Breast attenuation artifact. Bilateral breast implants. IMPRESSION: No radiographically acute cardiopulmonary process.
--- NOTE | 2025-08-11 00:25 | ED_ITS ---
Discharge Plan Disposition Patient Disposition: Home, Self-Care Prescriptions Prescriptions: New promethazine 25 mg tablet 25 mg PO Q6H PRN (Reason: nausea and vomiting) Qty: 20 0RF No Action duloxetine 30 mg capsule,delayed release(DR/EC) 30 mg PO DAILY norethindrone (contraceptive) 0.35 mg tablet 0.35 mg PO DAILY Qty: 84 4RF sumatriptan succinate 100 mg tablet 100 mg PO DAILY PRN (Reason: migraines) Qty: 30 3RF Rx Instructions: take 1 tablet by mouth daily as needed for migraines Referrals Follow up/Referrals: Provider,Referral, MD [Primary Care Provider, Medical] - See instructions Activity Restrictions/Add. Instructions Additional Instructions/Restrictions: Please follow-up with your primary care provider. Please return to the emergency department if you develop any new or worsening symptoms or become concerned for your health. Clinical Impressions Clinical Impression: Diarrhea, Vomiting, Chest pain, Abdominal pain Instructions Patient Instructions: DI for Acute Abdominal Pain Print Language Print Language: Malaysian Discharge ED Provider: Ranjan Key General Adult HPI General Chief complaint: Abdominal Pain Stated complaint: chest pain Time Seen by Provider: 08/11/25 00:15 History of Present Illness HPI narrative: 35-year-old female with history of prior bowel resection for diverticulitis, history of cholecystectomy, history of section presents for nausea vomiting and diarrhea. She reports has been ongoing for last few days and think she has a stomach bug. She came in tonight because she started getting short of breath and having chest pain. She denies fever at home. Reports that she feels dehydrated. She reports that she has seen a little bit of bright red blood in her diarrhea. She reports that she has had that before and indicates she has had hemorrhoids and anal fissures in the past. Related Data Home Medications ?Medication ?Instructions ?Recorded ?Confirmed duloxetine 30 mg capsule,delayed 30 mg PO DAILY Depres elin/anxiety 06/13/25 06/13/25 release Previous Rx's ?Medication ?Instructions ?Recorded norethindrone (contraceptive) 0.35 0.35 mg PO DAILY #8 4 tabs 05/27/24 mg tablet sumatriptan succinate 100 mg tablet 100 mg PO DAILY DE N migraines #30 09/09/24 tabs promethazine 25 mg tablet 25 mg PO Q6H PRN nausea and 08/11/25 vomiting #20 tabs Allergies Allergy/AdvReac Type Severity Reaction Status Date / Time amoxicillin Allergy Mild Rash Verified 08/11/25 00:37 metoclopramide (From Reglan) Allergy Mild hyper, Verified 06/13/25 12:53 skin felt werid Opioids - Morphine Analogues Allergy Mild vomiting Verified 06/13/25 12:53 prochlorperazine (From Allergy Mild vomiting Verified 06/13/25 12:53 Compazine) nickel Allergy Unknown Verified 08/11/25 00:37 allergy reaction PFSH [facility] Disclaimer: The information contained in this section may have been updated after the patient was seen, as this information can be updated by other users. Medical History Breast pain, right Migraine Crohn disease History of depression Tubal ligation evaluation Depression Anxiety History of anemia Hydrosalpinx left Endometriosis Surgical History History of cholecystectomy History of section History of bowel resection Family History Mother Diabetes Social History Smoking Status: Unknown if ever smoked alcohol intake: never substance use type: denies use current occupational status: employed Travel in the last 8 weeks?: None household members: spouse housing: house current occupational exposures/hazards: No caffeine: Yes Other Medical History Have you received the Flu Vaccine for this season: No Have you received the Pneumonia Vaccine: No ROS Obtained: Yes All systems reviewed & no additional complaints except as documented Physical Exam General General appearance: alert and anxious Head Head exam: atraumatic and normocephalic Eye Eye exam: Present normal appearance, PERRL and EOMI ENT ENT exam: Present normal oropharynx and normal external ear exam Neck Neck exam: Present normal inspection and full ROM Chest Chest inspection: Present normal inspection and symmetric chest wall rise; Absent tenderness Respiratory Respiratory exam: Present normal lung sounds bilaterally; Absent respiratory distress Cardiovascular Cardiovascular exam: Present regular rate and normal rhythm Abdominal Exam Abdominal exam: Present soft and tenderness (Minimal, generalized); Absent distention or guarding Extremities Exam Extremities exam: Present normal inspection; Absent edema or joint swelling Back Exam Back exam: Present normal inspection; Absent tenderness Neurological Exam Neurological exam: Present alert and oriented X3; Absent motor sensory deficit Psychiatric Psychiatric exam: Present normal affect and normal mood Skin Skin exam: Present warm, dry and normal color Lymphatic Lymphatic Findings: no adenopathy Medical Decision Making Medical Records Medical records reviewed: Yes I reviewed the patient's medical records. Screening: Per USPSTF and CDC recommendations, given the prevalence of disease in our region, it is our hospital?s policy to screen for HIV and viral Hepatitis for all patients aged 18 and over and those with ongoing risk factors. Eitan Inquiry Pt receiving controlled substance: No Eitan was queried for this patient: No Vital Signs: 08/11/25 00:21 Temperature 97.8 F Temperature Source Oral Pulse Rate [Left] 102 H Respiratory Rate 12 Blood Pressure [Right Arm] 98/57 L Blood Pressure Mean [Right Arm] 70 02 Sat by Pulse Oximetry 98 Oxygen Delivery Method Room Air Lab Data Lab results reviewed: Yes I reviewed the patient's lab results. Lab Results 08/11/25 00:35: WBC 10.8, RBC 4.89, Hgb 15.0, Hct 43.3, MCV 88.5, MCH 30.7, MCHC 34.6, RDW 12.6, Plt Count 226, MPV 11.7 H, Neut % (Auto) 83.7 H, Lymph % (Auto) 6.8 L, Douglas % (Auto) 8.6, Eos % (Auto) 0.1, Baso % (Auto) 0.4, Neut # (Auto) 9.0 H, Lymph # (Auto) 0.7, Douglas # (Auto) 0.9, Eos # (Auto) 0.0, Baso # (Auto) 0.0, D -Dimer 0.66 H, Sodium 137, Potassium 3.6, Chloride 102, Carbon Dioxide 24, Anion Gap 14.6, BUN 14, Creatinine 0.70, Estimated Creat Clear 123, Estimated GFR 95, Est GFR ( Amer) 115, Glucose 119 H, Calcium 9.3, Magnesium 1.6, Total Bilirubin 1.4 H, AST 33, ALT 24, Alkaline Phosphatase 77, Troponin I < 0.01, Total Protein 8.1, Albumin 4.9, Globulin 3.2, Albumin/Globulin Ratio 1.5, Lipase 41, Serum HCG, Qual Negative, HCV Ab MARÍA w/Rflx PCR Qn Negative 08/11/25 00:35 08/11/25 00:35 Orders (Tests/Meds): ED MEDICATIONS Discontinued Medications Generic Name Dose Route Start Last Admin Trade Name Daniel PRN Reason Stop Dose Admin Acetaminophen 1,000 mg 08/11/25 00:19 08/11/25 00:38 Acetaminophen 500mg Tab PO 08/11/25 00:20 1,000 mg ONCE ONE Administration Belladonna Alkaloids 60 ml 08/11/25 00:19 08/11/25 00:26 Belladonna Alkaloids 60 Ml Ml PO 08/11/25 00:20 60 ml ONCE ONE Administration Sodium Chloride 1,000 mls @ 999 mls/hr 08/11/25 00:30 08/11/25 01:30 Sod Chlor 0.9% 1000ml Bag IV 08/11/25 01:30 Infused .Q1H1M KEVAN Infusion Ketorolac Tromethamine 30 mg 08/11/25 00:19 08/11/25 00:26 Ketorolac 30mg/Ml Vial IV 08/11/25 00:20 30 mg ONCE ONE Administration Promethazine HCl 25 mg 08/11/25 00:19 08/11/25 00:26 Promethazine Hcl 25mg/Ml 1ml Vial IV 08/11/25 00:20 25 mg ONCE ONE Administration Sodium Chloride 25 ml 08/11/25 00:19 08/11/25 00:27 Sodium Chloride 0.9% 25ml Bag IV 08/11/25 00:20 25 ml ONCE ONE Administration ORDERS Category Date Time Status CXR --portable [XR chest portable] Stat Exams 08/11/25 00:22 Completed CBC w/Auto Diff [Complete Blood Count Auto Diff] Stat Lab 08/11/25 00:35 Completed CMP [Comprehensive Metabolic Panel] Stat Lab 08/11/25 00:35 Completed D-Dimer Stat Lab 08/11/25 00:35 Completed Diarrhea 23 Panel, PCR Stat Lab 08/11/25 00:24 Ordered HCG Qualitative, Serum Stat Lab 08/11/25 00:35 Completed HIV Combo Stat Lab 08/11/25 00:35 Received Hepatitis C Ab Qual. W/ RFX Stat Lab 08/11/25 00:35 Completed Lipase Stat Lab 08/11/25 00:35 Completed Magnesium Stat Lab 08/11/25 00:35 Completed Troponin I Q3H Lab 08/11/25 00:35 Completed Troponin I Q3H Lab 08/11/25 03:30 Ordered ECG Data Tracing #1: I reviewed this ECG and interpreted as documented below: Sinus tachycardia rate of 101, no obvious ischemic changes. ECG initial impression date: 08/11/25 ECG initial impression time: 00:15 HEART Score History (anamnesis): Slightly suspicious ECG: Normal Age: <45 years Risk factors: No known risk factors Troponin: </= normal limit HEART Score: 0 Medical Decision Narrative: 35-year-old female with history of prior colon resection for diverticulitis, prior cholecystectomy, presents for nausea vomiting and diarrhea, now with some chest pain and shortness of breath. Reports some bright red blood mixed with stool.. History was obtained via interactive discussion with patient, family, chart review. On arrival, patient is [afebrile, hemodynamically stable, satting appropriately, alert, oriented x4, GCS 15], anxious, moving all extremities spontaneously. Full physical exam performed and significant for minimal abdominal tenderness Differential includes but is not limited to gastroenteritis, colitis, anal fissure, hemorrhoids, pancreatitis, ACS, PE, pneumonia. Patient was given Tylenol Toradol Compazine GI cocktail fluid bolus for symptomatic management and correction of underlying abnormalities. Workup initiated including CBC CMP troponin D-dimer EKG chest x-ray diarrhea panel mag lipase. On re-evaluation, patient reports marked symptomatic improvement. Laboratory workup independently interpreted by me and significant for significant electrolyte derangement, no significant leukocytosis, D-dimer negative by years criteria, negative initial troponin. Lipase negative.. Imaging independently interpreted by me and significant for clear lungs bilaterally. See radiology read for full review of final results. CT imaging of the abdomen pelvis and CT PE were considered, but deemed unnecessary due to benign abdominal exam, negative troponin. No indication for repeat troponin. Given patient history, exam and workup, patient's presentation most likely represents gastroenteritis. Patient was unable to provide a stool sample in the ER and was discharged with a prescription for Phenergan and a stool collection kit. Return precautions given.. Procedures Risk/Benefits of Procedure(s) Were Explained: Yes Critical Care Critical Care Time Critical Care Time: No
[2025-08-11] MEDS: KETOROLAC 30MG/ML VIAL 30 MG IV (00:26)
[2025-08-11] MEDS: BELLADONNA ALKALOIDS 60 ML ML PO (00:26)
[2025-08-11] MEDS: PROMETHAZINE HCL 25MG/ML 1ML VIAL 25 MG IV (00:26)
[2025-08-11] MEDS: 0.9 % SODIUM CHLORIDE 1000ML 1,000 ML 999 ML IV (00:27)
[2025-08-11] MEDS: SODIUM CHLORIDE 0.9% 25ML BAG 25 ML IV (00:27)
[2025-08-11] MEDS: ACETAMINOPHEN 500MG TAB 1000 MG PO (00:38)
--- OUTSIDE RECORDS SUMMARY | 2025-08-11 00:38 | XMS_ITS | Clinical Summary ---
Demographics Address [address] [place] [address] Home Phone Mobile Phone Email Address Preferred Language 127 Marital Status Unknown Mu-Ism Affiliation Unknown Race White Ethnic Group Not or Lati no Author Organization [facility] Address [facility] [place] [address] Care Team Providers Care Product Support Manager Name Role Phone Pcp, No Primary Care [...] therelease of HIV test results or diagnoses. [id number] Allergies Active Allergy Reactions Criticality Noted Date Comments Metoclopramide Low 11/26/2020 Other reaction(s): Irritability Prochlorperazine Edisylate Low Other reaction(s): Irritability Medications escitalopram oxalate (LEXAPRO) 20 MG tablet Take 1 tablet (20 mg total) by mouth daily. Active ASYHA ROOT, BULK, MISC Use as directed. Active [...] once as needed for Migraine. Active omega 4-uux-mpd-fish oil (FISH OIL) 1,000 mg (120 mg-180 [...] (MyChart) 01/28/2020 Immunization: COVID-19 ( - season) 2025 Immunization: Influenza (MyC haney) (#1) 2025 Immunization: DTaP/Tdap/Td ( 2 - Td or Tdap) 10/31/2031 10/31/2021 Immunization: Pneumococcal Aged Out N o longer eligible based on patient's age to complete this topic Insurance * Guarantor: Carol Gaffney Account Type Relation to Patient Date of Phone Billing Address Personal/Family Self 1990 [address] [place] [address] [employer] Care Teams Product Support Manager Relationship Specialty Start Date End Date Pcp, No No Address PCP - General 11/03/23
--- OUTSIDE RECORDS SUMMARY | 2025-08-11 00:39 | XMS_ITS | Patient Health Record ---
Demographics Address [address] [place] [address] Preferred Language Unknown Marital Status Unknown Voodoo Affiliation Unknown Race Unknown Ethnic Group Unknown [facility] Address [address] [facility] [address] [place] [id number] Support Name Relationship Address Phone Fawad Gaffney Emergency Contact [address] [place] [address] Carol Gaffney Guarantor Unknown [phone] Care Team Providers Care Mine Laborer Name Role Phone Lenny Estrada Primary Care Provider [phone] Allergies Allergen (clinical drug ingredient) Drug/Non Drug Allergy documented on EMR Reaction Allergy Type Onset Date Status morphine Morphine Unknown Drug Allergy Active Reason For Referral No Information Medications Medication SIG (Take, Route, Frequency, Duration) Notes Start Date End Date Status Vitamins DIRECTED QD *Please review and pick correct strength-formulation from Medispan options. If intended option is not shown, discontinue and re-order from Quick Search* Active Vitamin B-12 1000 MCG 1 tab(s) orally once a day Active PROBIOTICS 1 TAB DAILY *Please review f or potential replacement for e-prescription and drug interaction check* Active Multiple Vitamins 1 QD *Please review and pick correct strength-formulation from Medispan options. If intended option is not shown, discontinue and re-order from Quick Search* Active Co Q10 1 TAB QD *Please review a nd pick correct strength-formulation from Medispan options. If intended option is not shown, discontinue and re-order from Quick Search* Active Plan Of Treatment No Information Insurance Providers Payer Name Payer Address Payer Phone Subscriber Number Group Number Insured Name Patient Relationship to Insured Coverage Start Date Coverage End Date [facility] [id number] [place] [address] [id number] GulshanCarol Self - patient is the insured Medical (General) History Medical History History ICD Code anxiety Surgical History Surgery Date(Month/Year) colon 2019 Hospitalization History Reason Date(Month/Year) infection in her back 2000
--- OUTSIDE RECORDS SUMMARY | 2025-08-11 00:39 | XMS_ITS | Clinical Summary ---
Author Organization [facility] Address [address] [place] [address] Care Team Providers Care Refueler Name Role Phone Provider, No Known Primary [...] ANNUAL PHYSICAL 11/26/2020 HEPATITIS C SCREENING 11/26/2020 INFLUENZA VACCINE 06/16/2025 Pneumococcal Vaccine 0-49 Aged Out No longer eligible based on patient's age to complete this topic Insurance [place] [id number] Care Teams Refueler Relationship Specialty Start Date End Date Provider, No Known [facility] [place] [address] PCP - General 11/12/20
[2025-08-11 00:44] LABS: Hematocrit 43.3 % (37.0-47.0); Hemoglobin 15.0 g/dL (12.2-16.2); Immature Granulocytes % 0.4 %; Mean Corpuscular HGB Conc 34.6 g/dL (31.8-35.4); Mean Corpuscular Hemoglobin 30.7 pg (27.0-31.2); Mean Corpuscular Volume 88.5 fl (81-99); Nucleated Red Blood Cells % 0 %; Platelet Count 226 K/mm3 (142-424); Red Blood Count 4.89 M/mm3 (4.20-5.40); Red Cell Distribution Width-SD 41.2 fL; White Blood Count 10.8 K/mm3 (4.8-10.8)
[2025-08-11 00:51] LABS: Albumin Level 4.9 g/dl (3.5-5.0); Chloride 102 mmol/L (98-107)
[2025-08-11 00:52] LABS: Potassium 3.6 mmoL/L (3.5-5.1); Sodium 137 mmol/L (136-145)
[2025-08-11 00:54] LABS: Alanine Aminotransferase 24 U/L (12-78); Anion Gap 14.6 mEq/L (5-15); Aspartate Amino Transferase 33 U/L (14-36); Carbon Dioxide 24 mmol/L (22.0-30.0)
[2025-08-11 00:55] LABS: Albumin/Globulin Ratio 1.5 (1.1-1.8); Alkaline Phosphatase 77 U/L (38-126); Bilirubin,Total 1.4 mg/dl (0.2-1.3); Calcium 9.3 mg/dl (8.4-10.2); Globulin 3.2 g/dL (1.3-3.2); Glucose 119 mg/dl (74-100); Lipase 41 U/L (23-300); Magnesium 1.6 mg/dl (1.6-2.3); Total Protein,Serum 8.1 g/dl (6.3-8.2)
[2025-08-11 01:00] LABS: Blood Urea Nitrogen 14 mg/dl (7-17); Creatinine Clearance Estimated 123 mL/min (50-200); Creatinine,Serum 0.70 mg/dl (0.52-1.04); Estimated Glomerular Filt Rate 95 ml/min (>60); GFR (African American) 115 ML/MIN (>60)
[2025-08-11 01:14] LABS: HCG Qualitative, Serum Negative (Negative)
[2025-08-11 01:42] LABS: Troponin I < 0.01 ng/ml (0.00-0.034)
[2025-08-11 02:33] LABS: Hepatitis C Ab Qual. W/ RFX NEGATIVE (Negative)
[2025-08-11 02:40] LABS: D-Dimer 0.66 ug/mL (0.0-0.5)
[2025-08-11 03:01] VITALS: BP 100/58; PULSE 81; RESP 11; TEMP 36.6; O2SAT 95
== END 2025-08-11 03:08 | disposition home or self-care (01) ==
PROVIDERS: Emergency Provider Emergency Medicine
DX: R07.9 Chest pain, unspecified (principal); R10.817 Generalized abdominal tenderness; R00.0 Tachycardia, unspecified; R06.02 Shortness of breath; R11.2 Nausea with vomiting, unspecified; R19.7 Diarrhea, unspecified
CPT/HCPCS: 71045; 80053; 83690; 83735; 84484; 84703; 85025; 85378; 86803; 87389; 93005; 96361; 96374; 96375; 99285; J1885; J2550; J7030

== ENCOUNTER 2025-08-25 10:34 | Outpatient (CLI) | payer OTHER, SELFPAY ==
--- OUTSIDE RECORDS SUMMARY | 2025-08-28 10:51 | XMS_ITS | Clinical Summary ---
Author Organization [facility] Address [address] [place] [address] Care Team Providers Care Master Barber Name Role Phone Provider, No Known Primary [...] patient's age to complete this topic Insurance [place] [id number] Care Teams Master Barber Relationship Specialty Start Date End Date Provider, No Known [facility] [place] [place] [address] PCP - General 11/12/20
--- OUTSIDE RECORDS SUMMARY | 2025-08-28 10:51 | XMS_ITS | Clinical Summary ---
Demographics Address [address] [place] [address] Home Phone Mobile Phone Email Address Preferred Language 127 Marital Status Unknown Yazdanism Affiliation Unknown Race White Ethnic Group Not or Lati no Author Organization [facility] Address [facility] [place] [address] Care Team Providers Care Gravel Roofer Name Role Phone Pcp, No Primary Care [...] therelease of HIV test results or diagnoses. [id number] Allergies Active Allergy Reactions Criticality Noted Date [...] once as needed for Migraine. Active omega 8-sof-upi-fish oil (FISH OIL) 1,000 mg (120 mg-180 [...] Personal/Family Self 1990 [address] [place] [address] [address] [employer] Care Teams Gravel Roofer Relationship Specialty Start Date End Date Pcp, No No Address PCP - General 11/03/23
== END 2025-08-25 23:59 | disposition home or self-care (01) ==
LOC: LAB.DROPOF 08-28 10:35
PROVIDERS: PCP Internal Medicine Adolescent Medicine; Visit Provider Obstetrics & Gynecology
DX: R10.20 Pelvic and perineal pain unspecified side (principal); R10.9 Unspecified abdominal pain
CPT/HCPCS: 87491; 87529; 87591; 87661; 87798; 87801

== ENCOUNTER 2025-09-28 14:15 | Outpatient (CLI) | payer OTHER, SELFPAY ==
--- OUTSIDE RECORDS SUMMARY | 2025-09-28 14:20 | XMS_ITS | Clinical Summary ---
Author Organization [facility] Address [address] [address] Care Team Providers Care Flame Planer Name Role Phone Provider, No Known Primary [...] patient's age to complete this topic Insurance [place] [id number] Care Teams Flame Planer Relationship Specialty Start Date End Date Provider, No Known [facility] [place] [address] PCP - General 11/12/20
--- OUTSIDE RECORDS SUMMARY | 2025-09-28 14:20 | XMS_ITS | Clinical Summary ---
Demographics Address [address] [place] [address] Home Phone Mobile Phone Email Address Preferred Language 127 Marital Status Unknown Judaism Affiliation Unknown Race White Ethnic Group Not or Lati no Author Organization [facility] Address [facility] [place] [address] Care Team Providers Care Sawmill Equipment Operator Name Role Phone Pcp, No Primary Care [...] therelease of HIV test results or diagnoses. [id number] Allergies Active Allergy Reactions Criticality Noted [...] once as needed for Migraine. Active omega 6-khe-hvw-fish oil (FISH OIL) 1,000 mg (120 mg-180 [...] Personal/Family Self 1990 [address] [place] [address] [address] [employer] Care Teams Sawmill Equipment Operator Relationship Specialty Start Date End Date Pcp, No No Address PCP - General 11/03/23
[2025-09-28 15:35] LABS: 25-OH Vitamin D, Total 51.0 ng/mL (30-100)
== END 2025-09-28 23:59 | disposition home or self-care (01) ==
LOC: LAB 14:15
PROVIDERS: PCP Internal Medicine Adolescent Medicine; Visit Provider Obstetrics & Gynecology
DX: E55.9 Vitamin D deficiency, unspecified (principal)
CPT/HCPCS: 36415; 82306